=== PATIENT | female | born 1990 | race Two or more races ===

== ENCOUNTER 2020-01-04 18:39 | Inpatient (IN) | payer SELFPAY ==
[2020-01-04] MEDS ORDERED: ONDANSETRON HCL INJ/PF 4 MG/2 ML SDV IV ONE (20:14)
[2020-01-04] MEDS ORDERED: KETOROLAC TROMETHAMINE INJ/PF 30 MG/1 ML SDV IV ONE (20:14)
[2020-01-04] MEDS ORDERED: RINGERS SOLUTION,LACTATED 1,000 ML IV ONE (20:14)
--- NOTE | 2020-01-04 20:27 | ER Document Report ---
ED General - General Chief Complaint: Nausea/Vomiting Stated Complaint: NAUSEA,VOMITING,ABDOMINAL PAIN Time Seen by Provider: 01/04/20 19:40 Notes: 29-year-old female presents emergency department complaining of diffuse but mostly upper abdominal pain that is constant and sharp and stabbing since yesterday afternoon associated with nausea and vomiting but no diarrhea. States earlier today she was seen in urgent care and prescribed Zofran and Bentyl, states that the vomiting has stopped but she still has nausea after taking the Zofran, the pain is unchanged. States that she is able to tolerate water but Aly-Aid makes it worse. Has not tried any solids since the pain and vomiting started. Emesis is nonbloody and nonbilious. Denies any fevers or chills until she showed up here this evening and was told she had a temperature of 100.1. Denies any dysuria. Denies any vaginal bleeding. Last menstrual period was 2 months ago, states with her control she only gets her period every 3 months. Only prior abdominal medical history is a history of "acid buildup in her stomach." This was several years ago. - Related Data Allergies/Adverse Reactions: acetaminophen [From Vicodin] Allergy (Verified 01/04/20 20:57) hydrocodone [From Vicodin] Allergy (Verified 01/04/20 20:57) Past Medical History - General Information source: Patient - Social History Smoking Status: Never Smoker Frequency of alcohol use: None Drug Abuse: None Family History: Reviewed & Not Pertinent Review of Systems - Review of Systems Constitutional: See HPI EENT: No symptoms reported Cardiovascular: No symptoms reported Respiratory: No symptoms reported Gastrointestinal: See HPI, Abdominal pain, Nausea, Vomiting. denies: Diarrhea -: Yes All other systems reviewed and negative Physical Exam - Vital signs Vitals: Temp 100.1 F 01/04/20 18:40 Interpretation: Hypertensive, Tachycardic - Notes Notes: GENERAL: Alert, interacts well. No acute distress. HEAD: Normocephalic, atraumatic EYES: Pupils equal, round and reactive to light, extraocular movements intact. ENT: Oral mucosa moist, tongue midline. NECK: Full range of motion, supple, trachea midline. LUNGS: Clear to auscultation bilaterally, no wheezes, rales or rhonchi, no respiratory distress. HEART: Regular rate and rhythm, no murmurs, gallops, rubs. ABDOMEN: Soft, minimal epigastric tenderness to palpation, no guarding, no rigidity, no rebounding, nondistended, bowel sounds present in all 4 quadrants. EXTREMITIES: Moves all 4 extremities spontaneously, no edema, radial and dorsalis pedis pulses 2/4 bilaterally. No cyanosis. NEUROLOGICAL: Alert and oriented x3, normal speech. PSYCH: Normal mood, normal affect. SKIN: Warm, Dry, normal turgor, no rashes or lesions noted. Course - Re-evaluation Re-evalutation: 01/04/20 22:15 CBC shows leukocytosis of 14.8, no anemia, patient is borderline acidotic with a VBG pH of 7.35, CO2 is low at 27.3 as his bicarb at 14.8, CMP is concerning for DKA, shows pseudohyponatremia with sodium of 127.9, potassium is normal at 4.2 however I will give her normal saline with 20 mEq of potassium in it, CO2 is undetectable therefore anion gap is not reportable, BUN and creatinine are actually normal, glucose elevated at 327, patient also has evidence of pancreatitis with a lipase of 1326.9. She is not . Urinalysis shows greater than 500 of glucose and 80 ketones. Initially for her vomiting patient was hydrated with lactated Ringer's, after seeing her urinalysis I began to suspect DKA, laboratory studies confirm this, patient is started on normal saline with 20 of K, and insulin drip and we will continue to monitor. Attempted to discuss case with the hospitalist, he stated he will have to call me back. 01/04/20 22:[address] Haynes, he states that technically she is not in DKA as her pH is 7.35 however he will admit this patient with an undetectably low serum CO2 for new onset diabetes and pancreatitis. - Vital Signs Vital signs: Temp Pulse Resp BP Pulse Ox 100.1 F 115 H 14 153/95 H 96 01/04/20 19:28 01/04/20 19:28 01/04/20 19:28 01/04/20 19:28 01/04/20 19:28 - Laboratory Result Diagrams: 01/04/20 20:41 01/04/20 20:41 Laboratory results interpreted by me: 01/04/20 01/04/20 01/04/20 20:41 20:41 20:41 WBC 14.8 H RDW 14.2 H Seg Neuts % (Manual) 85 H Lymphocytes % (Manual) 10 L Monocytes % (Manual) 1 L Abs Neuts (Manual) 13.2 H VBG pCO2 VBG HCO3 Sodium 127.9 L Carbon Dioxide < 5 L* BUN 4 L Creatinine 0.49 L Glucose 327 H Alkaline Phosphatase 278 H Total Protein 8.4 H Albumin 2.7 L Lipase 1326.9 H Urine Protein >=500 H Urine Glucose (UA) >=500 H Urine Ketones 80 H Urine Blood MODERATE H 01/04/20 21:47 WBC RDW Seg Neuts % (Manual) Lymphocytes % (Manual) Monocytes % (Manual) Abs Neuts (Manual) VBG pCO2 27.3 L VBG HCO3 14.8 L Sodium Carbon Dioxide BUN Creatinine Glucose Alkaline Phosphatase Total Protein Albumin Lipase Urine Protein Urine Glucose (UA) Urine Ketones Urine Blood Critical Care Note - Critical Care Note Total time excluding time spent on procedures (mins): 47 Discharge - Discharge Clinical Impression: New onset type 1 diabetes mellitus, uncontrolled, hyperglycemia with ketosis Pancreatitis, acute Qualifiers: Pancreatitis type: unspecified pancreatitis type Acute pancreatitis complication: unspecified Qualified Code(s): K85.90 - Acute pancreatitis without necrosis or infection, unspecified Condition: Fair Disposition: ADMITTED INPATIENT Admitting Provider: [place] (Hospitalist) Unit Admitted: Medical Floor
[2020-01-04 21:05] LABS: HEMATOCRIT 42.7 % (36.0-47.0); MEAN CORPUSCULAR VOLUME 89 fl (80-97); PLATELET COUNT 368 10^3/uL (150-450); RED BLOOD COUNT 4.81 10^6/uL (3.72-5.28); RED CELL DISTRIBUTION WIDTH 14.2 % (11.5-14.0); WHITE BLOOD COUNT 14.8 10^3/uL (4.0-10.5)
[2020-01-04 21:11] LABS: APPEARANCE,URINE SLIGHTLY-CLOUDY; BILIRUBIN,URINE NEGATIVE (NEGATIVE); COLOR,URINE YELLOW; GLUCOSE, URINE >=500 mg/dL (NEGATIVE); KETONES,URINE 80 mg/dL (NEGATIVE); LEUKOCYTE ESTERASE,URINE NEGATIVE (NEGATIVE); NITRITE,URINE NEGATIVE (NEGATIVE); PROTEIN,URINE >=500 mg/dL (NEGATIVE); URINE SPECIFIC GRAVITY 1.032; UROBILINOGEN,URINE NEGATIVE mg/dL (<2.0)
[2020-01-04 21:21] LABS: ALBUMIN 2.7 g/dL (3.5-5.0); ALKALINE PHOSPHATASE 278 U/L (38-126); ASPARTATE AMINO TRANSFERASE 21 U/L (14-36); BILIRUBIN,DIRECT 0.4 mg/dL (0.0-0.4); BILIRUBIN,TOTAL 1.1 mg/dL (0.2-1.3); BLOOD UREA NITROGEN 4 mg/dL (7-20); GLUCOSE 327 mg/dL (75-110); POTASSIUM 4.2 mmol/L (3.6-5.0); TOTAL PROTEIN 8.4 g/dL (6.3-8.2)
[2020-01-04 21:31] LABS: CHLORIDE 98 mmol/L (98-107)
[2020-01-04 21:39] LABS: ABSOLUTE LYMPHOCYTES# (MANUAL) 1.5 10^3/uL (0.5-4.7); ABSOLUTE MONOCYTES # (MANUAL) 0.1 10^3/uL (0.1-1.4); BAND NEUTROPHILS % (MANUAL) 4 % (3-5); BASOPHILS % (MANUAL) 0 % (0-2); CARBON DIOXIDE < 5 mmol/L (22-30); EOSINOPHILS % (MANUAL) 0 % (0-6); LYMPHOCYTES % (MANUAL) 10 % (13-45); MONOCYTES % (MANUAL) 1 % (3-13); SEGMENTED NEUTROPHILS % (MAN) 85 % (42-78); TOTAL CELLS COUNTED 100
[2020-01-04 21:40] LABS: ANISOCYTOSIS SLIGHT
[2020-01-04 21:41] LABS: PLATELET COMMENT ADEQUATE; POLYCHROMASIA SLIGHT
[2020-01-04 21:43] LABS: HEMOGLOBIN 14.3 g/dL (12.0-15.5)
[2020-01-04 21:44] LABS: MEAN CORPUSCULAR HEMOGLOBIN 29.7 pg (27.0-33.4); MEAN CORPUSCULAR HGB CONC 33.5 g/dL (32.0-36.0)
[2020-01-04] MEDS ORDERED: INSULIN REG, HUMAN 100 UNIT/ML 3 ML VIAL (PYX) IV ONE (21:47)
[2020-01-04 21:58] LABS: VENOUS BLOOD BASE EXCESS -9.1 mmol/L; VENOUS BLOOD HCO3 14.8 mmol/L (20-32); VENOUS BLOOD PCO2 27.3 mmHg (35-63); VENOUS BLOOD PH 7.35 (7.30-7.42)
[2020-01-04] MEDS ORDERED: POTASSI CL 20 MEQ/NS 1L 1,000 ML IV ONE (22:01)
[2020-01-04] MEDS ORDERED: RINGERS SOLUTION,LACTATED 1,000 ML IV PRN (22:55)
[2020-01-04] MEDS ORDERED: PROMETHAZINE HCL INJ 25 MG/1 ML VIAL IV PRN (22:55)
[2020-01-04] MEDS ORDERED: MAG HYDROX/AL HYDROX/SIMETH SUSP 30 ML UDCUP PO PRN (22:55)
[2020-01-04] MEDS ORDERED: MAGNESIUM HYDROXIDE SUSP 30 ML UDCUP PO PRN (22:55)
[2020-01-04] MEDS ORDERED: DEXTROSE 5%-WATER 1000 ML 1,000 ML with SODIUM BICARBONATE 150 MEQ IV PRN ×2 (23:00)
[2020-01-04] MEDS ORDERED: HYDRALAZINE HCL INJ/PF 20 MG/1 ML SDV IV PRN (23:00)
[2020-01-04] MEDS ORDERED: GUAIFENESIN SYRP 200 MG/10 ML UDC PO PRN (23:00)
[2020-01-04] MEDS ORDERED: GLUCAGON,HUMAN RECOMB 1 MG INJ IM PRN (23:03)
[2020-01-04] MEDS ORDERED: DEXTROSE 40% GEL 15 GM TUBE PO PRN ×2 (23:03)
[2020-01-04] MEDS ORDERED: DEXTROSE 50%-WATER 25 GM/50 ML DISP.SYRIN IV PRN (23:03)
[2020-01-05] MEDS: PANTOPRAZOLE SODIUM 40 MG VIAL IV SCH ×3 (00:07→21:05)
[2020-01-05] MEDS: INSULIN REG, HUMAN 100 UNIT/ML 3 ML VIAL (PYX) SUBCUT SCH ×4 (00:20→09:27)
--- NOTE | 2020-01-05 00:24 | RADIOLOGY REPORT (SQ) ---
EXAM DESCRIPTION: US ABDOMEN COMPLETED DATE/TME: 01/04/2020 00:00 CLINICAL HISTORY: 29 years Female, Abdominal pain, elevated lipase Comparison: CT, no contrast, January 05, 2020. LIMITATIONS: Bowel gas and body habitus artifact. FINDINGS: 5.1 cm hypoechoic mass of the right hepatic lobe. There is minimal vascularity at its periphery. Differential diagnosis includes neoplasm. Recommend contrast CT or MRI of the abdomen, liver protocol. Severe hepatic steatosis. Gallbladder sludge, negative sonographic Peralta's test, obscured common bile duct, no intrahepatic ductal dilation, hepatopetal patent flow of the portal vein, spleen, 11-cm left kidney, 10-cm right kidney, partially obscured pancreas, visualized vasculature/abdominal aorta, and no significant ascites appear otherwise unremarkable. IMPRESSION: 1. 5.1 cm hypoechoic mass of the right hepatic lobe. There is minimal vascularity at its periphery. Differential diagnosis includes neoplasm. Recommend contrast CT or MRI of the abdomen, liver protocol. 2. Severe hepatic steatosis. 3. Gallbladder sludge.
--- NOTE | 2020-01-05 00:32 | RADIOLOGY REPORT (SQ) ---
CT ABDOMEN PELVIS WITHOUT IV CONTRAST HISTORY: Abdominal pain with elevated lipase. COMPARISON: Ultrasound from 01/03/2020. TECHNIQUE: CT scan of the abdomen and pelvis was performed without IV contrast. This exam was performed according to our departmental dose-optimization program, which includes automated exposure control, adjustment of the mA and/or kV according to patient size and/or use of iterative reconstruction technique. FINDINGS: The lung bases are clear. No pleural or pericardial effusions. There is no hiatal hernia. There is diffuse hepatic steatosis with a focal area of fatty sparing the right hepatic lobe. There is diffuse inflammatory stranding surrounding the pancreas. No fluid collection is seen. The gallbladder, spleen, adrenal glands, kidneys, and pelvic organs are normal. No obstructing urinary stones. The stomach and duodenum are unremarkable. No small bowel obstruction. The appendix is normal. No evidence of acute diverticulitis. No adenopathy, free fluid, or free air is identified. The aorta is normal in caliber. No acute bony findings are seen. No abnormal body wall hernia. IMPRESSION: Acute pancreatitis without evidence of pseudocyst.
[2020-01-05] MEDS ORDERED: SODIUM BICARBONATE 8.4% INJ 50 MEQ/50 ML DISP.SYRIN ONE (00:57)
--- NOTE | 2020-01-05 01:11 | PDOC H&P ---
History of Present Illness Admission Date/PCP: 01/04/2020 22:34 No local PCP Patient complains of: Abdominal pain History of Present Illness: PAVITHRA GRULLON is a 29 year old female who presents the emergency room with a one-day history of abdominal pain. She admits to the abrupt onset of a moderate to severely intense constant sharp and stabbing generalized abdominal pain worse in the upper abdomen beginning 01/03/2020. Her abdominal pain has been accompanied by nausea and vomiting and associated with anorexia. Her pain is exacerbated by attempts at oral intake of food or fluids other than water. She denies other associated or accompanying signs and symptoms. She denies prior similar episodes. She has not identified any additional aggravating or ameliorating factors for her abdominal pain. In the emergency room she was found to have an elevated serum lipase and was also noted to have a fully compensated metabolic acidosis with ketosis and elevated blood sugar. She was subsequently admitted to the hospital for further evaluation treatment. Past Medical History Cardiac Medical History: Denies: Coronary Artery Disease, DVT, Hyperlipidema, Hypertension Pulmonary Medical History: Denies: Asthma, Chronic Obstructive Pulmonary Disease (COPD) EENT Medical History: Denies: Cataracts, Ears - Hearing aids Neurological Medical History: Denies: Multiple Sclerosis, Seizures Endocrine Medical History: Denies: Diabetes Mellitus Type 1, Diabetes Mellitus Type 2, Hyperthyroidism, Hypothyroidism Renal/ Medical History: Denies: Chronic Kidney Disease, Nephrolithiasis Malignancy Medical History: Reports: None GI Medical History: Reports: Peptic Ulcer Disease Denies: Cirrhosis, Crohn's Disease, Gastroesophageal Reflux Disease, Hepatitis, Ulcerative Colitis Musculoskeltal Medical History: Denies: Arthritis, Gout Skin Medical History: Denies: Eczema, Psoriasis Psychiatric Medical History: Denies: Alcohol Dependency, Substance Abuse, Tobacco Dependency Traumatic Medical History: Reports: None Hematology: Denies: Anemia, Bleeding Tendencies Infectious Medical History: Reports: None Past Surgical History Past Surgical History: Reports: Other - Jaw surgery for overbite Social History Information Source: Patient Lives with: Spouse/Significant other Smoking Status: Never Smoker Electronic Cigarette use?: No Frequency of Alcohol Use: Occasional Hx Recreational Drug Use: No Drugs: None Hx Prescription Drug Abuse: No - Advance Directive Resuscitation Status: Full Code Surrogate healthcare decision maker:: Davi Grullon Family History Family History: Patient is adopted and family history is unknown. Parental Family History Reviewed: No Children Family History Reviewed: Unknown Sibling(s) Family History Reviewed.: Unknown Medication/Allergy Allergies/Adverse Reactions: acetaminophen [From Vicodin] Allergy (Verified 01/04/20 20:57) hydrocodone [From Vicodin] Allergy (Verified 01/04/20 20:57) Review of Systems Constitutional: ABSENT: chills, fever(s) Eyes: ABSENT: visual disturbances, other - Eye pain Ears: ABSENT: hearing changes, other - Ear pain Nose, Mouth, and Throat: ABSENT: headache(s), sore throat Cardiovascular: ABSENT: chest pain, palpitations Respiratory: ABSENT: cough, dyspnea Gastrointestinal: PRESENT: abdominal pain, nausea, vomiting. ABSENT: constipation, diarrhea Genitourinary: ABSENT: dysuria, hematuria Musculoskeletal: ABSENT: back pain, joint swelling Integumentary: ABSENT: pruritus, rash Neurological: ABSENT: confusion, convulsions, focal weakness, memory loss, syncope Psychiatric: ABSENT: anxiety, depression Endocrine: PRESENT: polydipsia, polyuria. ABSENT: cold intolerance, heat intolerance Hematologic/Lymphatic: ABSENT: easy bleeding, easy bruising Allergic/Immunologic: ABSENT: seasonal rhinorrhea Physical Exam Vital Signs: Temp Pulse Resp BP Pulse Ox 100.1 F 115 H 14 153/95 H 96 01/04/20 19:28 01/04/20 19:28 01/04/20 19:28 01/04/20 19:28 01/04/20 19:28 Intake & Output 01/02/20 01/03/20 01/04/20 23:59 23:59 23:59 Intake Total 949 Balance 949 Weight 77.111 kg General appearance: PRESENT: no acute distress, cooperative, obese Head exam: PRESENT: atraumatic, normocephalic Eye exam: PRESENT: conjunctiva pink. ABSENT: conjunctival injection, scleral icterus Ear exam: PRESENT: normal external ear exam. ABSENT: bleeding, drainage Mouth exam: PRESENT: dry mucosa, neck supple Neck exam: ABSENT: thyromegaly, tracheal deviation Respiratory exam: PRESENT: clear to auscultation emil, symmetrical, unlabored Cardiovascular exam: PRESENT: RRR. ABSENT: clicks, gallop, rubs Pulses: PRESENT: normal radial pulses, normal dorsalis pedis pul Vascular exam: PRESENT: normal capillary refill. ABSENT: pallor GI/Abdominal exam: PRESENT: hypoactive bowel sounds, soft, tenderness - Mild to moderate generalized tenderness to palpation without localization Rectal exam: PRESENT: deferred Extremities exam: ABSENT: joint swelling, pedal edema Musculoskeletal exam: ABSENT: deformity, dislocation Neurological exam: PRESENT: alert, oriented to person, oriented to place, oriented to time, oriented to situation, CN II-XII grossly intact. ABSENT: motor sensory deficit Psychiatric exam: PRESENT: appropriate affect, normal mood Skin exam: PRESENT: dry, intact, warm. ABSENT: jaundice, rash, urticaria Results Laboratory Results: 01/04/20 20:41 01/04/20 20:41 01/04/20 01/04/20 01/04/20 20:41 20:41 20:41 WBC 14.8 H RBC 4.81 Hgb 14.3 Hct 42.7 MCV 89 MCH 29.7 MCHC 33.5 RDW 14.2 H Plt Count 368 Seg Neutrophils % Not Reportable VBG pH VBG pCO2 VBG HCO3 VBG Base Excess Sodium 127.9 L Potassium 4.2 Chloride 98 Carbon Dioxide < 5 L* Anion Gap Not Reportable BUN 4 L Creatinine 0.49 L Est GFR ( Amer) > 60 Glucose 327 H Calcium 9.0 Total Bilirubin 1.1 AST 21 Alkaline Phosphatase 278 H Total Protein 8.4 H Albumin 2.7 L Lipase 1326.9 H Serum HCG, Qual Urine Color YELLOW Urine Appearance SLIGHTLY-CLOUDY Urine pH 5.0 Ur Specific [place] 1.032 Urine Protein >=500 H Urine Glucose (UA) >=500 H Urine Ketones 80 H Urine Blood MODERATE H Urine Nitrite NEGATIVE Ur Leukocyte Esterase NEGATIVE Urine WBC (Auto) 5 Urine RBC (Auto) 2 01/04/20 01/04/20 20:41 21:47 WBC RBC Hgb Hct MCV MCH MCHC RDW Plt Count Seg Neutrophils % VBG pH 7.35 VBG pCO2 27.3 L VBG HCO3 14.8 L VBG Base Excess -9.1 Sodium Potassium Chloride Carbon Dioxide Anion Gap BUN Creatinine Est GFR ( Amer) Glucose Calcium Total Bilirubin AST Alkaline Phosphatase Total Protein Albumin Lipase Serum HCG, Qual NEGATIVE Urine Color Urine Appearance Urine pH Ur Specific [place] Urine Protein Urine Glucose (UA) Urine Ketones Urine Blood Urine Nitrite Ur Leukocyte Esterase Urine WBC (Auto) Urine RBC (Auto) Assessment and Plan - Diagnosis (1) Acute pancreatitis Qualifiers: Pancreatitis type: unspecified pancreatitis type Acute pancreatitis complication: unspecified Qualified Code(s): K85.90 - Acute pancreatitis without necrosis or infection, unspecified Is this a current diagnosis for this admission?: Yes (2) Metabolic acidosis Is this a current diagnosis for this admission?: Yes (3) Ketosis Is this a current diagnosis for this admission?: Yes (4) Hyperglycemia Is this a current diagnosis for this admission?: Yes (5) Abdominal pain Qualifiers: Abdominal location: generalized Qualified Code(s): R10.84 - Generalized abdominal pain Is this a current diagnosis for this admission?: Yes (6) Nausea and vomiting Qualifiers: Vomiting type: unspecified Vomiting Intractability: non-intractable Qualified Code(s): R11.2 - Nausea with vomiting, unspecified Is this a current diagnosis for this admission?: Yes - Plan Summary Summary: Patient is admitted to the medical floor where she will receive routine supportive and symptomatic cares. She will be treated with IV fluid as well as a bicarbonate intravenous infusion and her blood sugars were monitored closely. Sliding scale insulin will be used to control her hyperglycemia. She will receive morphine sulfate 2 to 4 mg IV every 2 hours as needed for pain. She will receive Ativan 1 mg IV every 4 hours as needed for anxiety or restlessness. A noncontrast CT scan of the abdomen and pelvis will be obtained as soon as possible. Serial lipase and amylase determinations will be obtained. CBCs, metabolic profiles, magnesium levels and additional laboratory and/or radiographic studies will be obtained as appropriate. Patient will be on a clear liquid diet initially, which can be advanced as tolerated. Hemoglobin A1c will be obtained. An ultrasound of the gallbladder will also be obtained. - Time Time Spent with patient: 25-34 minutes Medications reviewed and adjusted accordingly: Yes Anticipated discharge: Home - Inpatient Certification Based on my medical assessment, after consideration of the patient's comorbidities, presenting symptoms, or acuity I expect that the services needed warrant INPATIENT care.: Yes I certify that my determination is in accordance with my understanding of Medicare's requirements for reasonable and necessary INPATIENT services [42 CFR 412.3e].: Yes Medical Necessity: Need Close Monitoring Due to Risk of Patient Decompensation, Need For IV Fluids, Need for Pain Control, Risk of Complication if Not Cared For in Hospital
[2020-01-05] MEDS: DEXTROSE 5%-WATER 1000 ML 1,000 ML with SODIUM BICARBONATE 150 MEQ IV PRN ×4 (01:31→08:48)
[2020-01-05] MEDS: MORPHINE SULFATE 10 MG/ML INJ IV PRN ×7 (01:32→14:49)
[2020-01-05] MEDS: HEPARIN SOD (PORCINE) 5,000 UNIT/ML 1 ML VIAL SUBCUT SCH ×3 (06:10→21:05)
[2020-01-05 06:36] LABS: HEMATOCRIT 39.6 % (36.0-47.0); MEAN CORPUSCULAR VOLUME 89 fl (80-97); PLATELET COUNT 308 10^3/uL (150-450); RED BLOOD COUNT 4.47 10^6/uL (3.72-5.28); WHITE BLOOD COUNT 10.3 10^3/uL (4.0-10.5)
[2020-01-05 06:50] LABS: AMYLASE 259 U/L (30-110); ANION GAP 18 (5-19); BLOOD UREA NITROGEN 3 mg/dL (7-20); CALCIUM 7.4 mg/dL (8.4-10.2); CHLORIDE 100 mmol/L (98-107); GLUCOSE 286 mg/dL (75-110); POTASSIUM 3.6 mmol/L (3.6-5.0)
[2020-01-05 07:07] LABS: HEMOGLOBIN 13.3 g/dL (12.0-15.5); MEAN CORPUSCULAR HEMOGLOBIN 29.8 pg (27.0-33.4); MEAN CORPUSCULAR HGB CONC 33.6 g/dL (32.0-36.0)
[2020-01-05 07:08] LABS: FREE T3 2.51 pg/mL (2.77-5.27)
[2020-01-05 07:23] LABS: THYROID STIMULATING HORMONE 1.6 uIU/mL (0.47-4.68)
[2020-01-05 09:25] LABS: DIRECT LDL 190 mg/dL (<100)
[2020-01-05] MEDS: DOCUSATE SODIUM 100 MG CAPSULE PO SCH ×2 (09:27→17:00)
[2020-01-05 09:48] LABS: CARBON DIOXIDE 9 mmol/L (22-30); TRIGLYCERIDES 9861 mg/dL (<150)
[2020-01-05] MEDS ORDERED: NORMAL SALINE 1000 ML 1,000 ML with POTASSIUM CHLORIDE 20 MEQ IV PRN ×2 (10:01)
[2020-01-05] MEDS ORDERED: INSULIN REG, HUMAN 100 UNIT/ML 3 ML VIAL (PYX) IV ONE (10:30)
[2020-01-05] MEDS: POTASSI CL 20 MEQ/NS 1L 1000 ML IV PRN ×2 (10:38→14:53)
[2020-01-05] MEDS ORDERED: INSULIN REG, HUMAN 100 UNIT/ML 3 ML VIAL (PYX) ONE (13:01)
[2020-01-05] MEDS: NORMAL SALINE 100 ML with INSULIN REGULAR, HUMAN 100 UNIT IV PRN ×2 (13:15)
[2020-01-05] MEDS ORDERED: DICYCLOMINE HCL 20 MG TABLET PO PRN (14:44)
[2020-01-05] MEDS ORDERED: QUETIAPINE FUMARATE 25 MG TABLET PO PRN (14:44)
[2020-01-05] MEDS ORDERED: ONDANSETRON HCL INJ/PF 4 MG/2 ML SDV IV PRN (15:21)
--- NOTE | 2020-01-05 15:28 | PDOC PROGRESS REPORT ---
Subjective Progress Note for:: 01/05/20 Subjective:: Patient c/o some nausea and still having significant abdominal pain. Reason For Visit: ACUTE PANCREATITIS,ABDOMINAL PAIN,HYPERGLYCEMIA Physical Exam Vital Signs: Temp Pulse Resp BP Pulse Ox 99.9 F 135 H 18 130/98 H 97 01/05/20 11:36 01/05/20 11:36 01/05/20 11:36 01/05/20 11:36 01/05/20 11:36 Intake & Output 01/04/20 01/05/20 01/06/20 06:59 06:59 06:59 Intake Total 1780 1004 Balance 1780 1004 Weight 77.5 kg General appearance: PRESENT: no acute distress, cooperative, obese Neck exam: ABSENT: JVD Respiratory exam: PRESENT: clear to auscultation emil, symmetrical, unlabored. ABSENT: tachypnea Cardiovascular exam: ABSENT: bradycardia, tachycardia GI/Abdominal exam: PRESENT: guarding - Mild voluntary guarding, soft, tenderness. ABSENT: distended, firm, rebound, rigid Neurological exam: PRESENT: alert, awake, oriented to person, oriented to place, oriented to time Results Laboratory Results: 01/05/20 05:45 01/05/20 05:46 01/04/20 01/04/20 01/04/20 20:41 20:41 20:41 WBC 14.8 H RBC 4.81 Hgb 14.3 Hct 42.7 MCV 89 MCH 29.7 MCHC 33.5 RDW 14.2 H Plt Count 368 Seg Neutrophils % Not Reportable VBG pH VBG pCO2 VBG HCO3 VBG Base Excess Sodium 127.9 L Potassium 4.2 Chloride 98 Carbon Dioxide < 5 L* Anion Gap Not Reportable BUN 4 L Creatinine 0.49 L Est GFR ( Amer) > 60 Glucose 327 H Calcium 9.0 Magnesium Total Bilirubin 1.1 AST 21 Alkaline Phosphatase 278 H Total Protein 8.4 H Albumin 2.7 L Triglycerides Cholesterol LDL Cholesterol Direct HDL Cholesterol Amylase Lipase 1326.9 H TSH Free T3 pg/mL Serum HCG, Qual Urine Color YELLOW Urine Appearance SLIGHTLY-CLOUDY Urine pH 5.0 Ur Specific [place] 1.032 Urine Protein >=500 H Urine Glucose (UA) >=500 H Urine Ketones 80 H Urine Blood MODERATE H Urine Nitrite NEGATIVE Ur Leukocyte Esterase NEGATIVE Urine WBC (Auto) 5 Urine RBC (Auto) 2 01/04/20 01/04/20 01/04/20 20:41 20:41 21:47 WBC RBC Hgb Hct MCV MCH MCHC RDW Plt Count Seg Neutrophils % VBG pH 7.35 VBG pCO2 27.3 L VBG HCO3 14.8 L VBG Base Excess -9.1 Sodium Potassium Chloride Carbon Dioxide Anion Gap BUN Creatinine Est GFR ( Amer) Glucose Calcium Magnesium Total Bilirubin AST Alkaline Phosphatase Total Protein Albumin Triglycerides Cholesterol LDL Cholesterol Direct HDL Cholesterol Amylase 160 H Lipase TSH Free T3 pg/mL Serum HCG, Qual NEGATIVE Urine Color Urine Appearance Urine pH Ur Specific [place] Urine Protein Urine Glucose (UA) Urine Ketones Urine Blood Urine Nitrite Ur Leukocyte Esterase Urine WBC (Auto) Urine RBC (Auto) 01/05/20 01/05/20 01/05/20 05:45 05:46 05:46 WBC 10.3 RBC 4.47 Hgb 13.3 Hct 39.6 MCV 89 MCH 29.8 MCHC 33.6 RDW 14.0 Plt Count 308 Seg Neutrophils % VBG pH VBG pCO2 VBG HCO3 VBG Base Excess Sodium 127.4 L Potassium 3.6 Chloride 100 Carbon Dioxide 9 L* Anion Gap 18 BUN 3 L Creatinine 0.40 L Est GFR ( Amer) > 60 Glucose 286 H Calcium 7.4 L Magnesium 1.6 Total Bilirubin AST Alkaline Phosphatase Total Protein Albumin Triglycerides 9861 H Cholesterol > 650.00 H LDL Cholesterol Direct 190 H HDL Cholesterol 23 L Amylase 259 H Lipase 3015.9 H TSH 1.60 Free T3 pg/mL 2.51 L Serum HCG, Qual Urine Color Urine Appearance Urine pH Ur Specific [place] Urine Protein Urine Glucose (UA) Urine Ketones Urine Blood Urine Nitrite Ur Leukocyte Esterase Urine WBC (Auto) Urine RBC (Auto) Impressions: Abdomen Ultrasound 01/04/20 00:00 IMPRESSION: 1. 5.1 cm hypoechoic mass of the right hepatic lobe. There is minimal vascularity at its periphery. Differential diagnosis includes neoplasm. Recommend contrast CT or MRI of the abdomen, liver protocol. 2. Severe hepatic steatosis. 3. Gallbladder sludge. Abdomen/Pelvis CT 01/04/20 00:00 IMPRESSION: Acute pancreatitis without evidence of pseudocyst. Assessment and Plan - Diagnosis (1) Acute pancreatitis Qualifiers: Pancreatitis type: other Acute pancreatitis complication: no infection or necrosis Qualified Code(s): K85.80 - Other acute pancreatitis without necrosis or infection Is this a current diagnosis for this admission?: Yes Plan: Hypertriglyceridemia-induced acute pancreatitis. Will give continuous IV fluid hydration with normal saline at 250 cc/h with KCl supplement. Pain control as needed. Antiemetics. CT abdomen reviewed showing findings consistent with acute pancreatitis. Lipase over 3000. (2) Hypertriglyceridemia Is this a current diagnosis for this admission?: Yes Plan: This triglyceride is over 9000. She has no idea of her family history because she is adopted. 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 Presence of acute pancreatitis, will treat with insulin drip with triglyceride levels every 12 hours and BMP. Will maintain insulin drip until triglycerides drops below 500. Start on fenofibrate tomorrow Pseudohyponatremia secondary to hypertriglyceridemia. (3) High anion gap metabolic acidosis Is this a current diagnosis for this admission?: Yes Plan: Metabolic acidosis and ketoacidosis are more so secondary to hypertriglyceridemia rather than DKA. On IV insulin. Will administer normal saline with KCl supplementation and monitor BMP. Switch to D5 NS was blood glucose drops below 250. (4) Lesion of liver greater than 1 cm in diameter Is this a current diagnosis for this admission?: Yes Plan: Ultrasound found incidental hypoechoic 5.1 cm lesion in the liver right lobe. Will check liver protocol MRI with gadolinium to further evaluate this given size of lesion. (5) Metabolic syndrome Is this a current diagnosis for this admission?: Yes (6) Hypercholesterolemia Is this a current diagnosis for this admission?: Yes Plan: Start on atorvastatin. LDL significantly elevated. - Time Time Spent with patient: Less than 15 minutes
[2020-01-05] MEDS ORDERED: HYDROMORPHONE HCL INJ/PF 2 MG/ML AMPULE IV PRN (16:01)
[2020-01-05] MEDS ORDERED: NORMAL SALINE 1000 ML 500 ML IV ONE (16:41)
[2020-01-05] MEDS ORDERED: DEXTROSE 5%-NORMAL SALINE 1,000 ML with POTASSIUM CHLORIDE 20 MEQ IV PRN ×2 (16:46)
[2020-01-05] MEDS ORDERED: NORMAL SALINE 500 ML IV ONE (17:00)
[2020-01-05 18:20] LABS: ANION GAP 13 (5-19); BLOOD UREA NITROGEN 3 mg/dL (7-20); CARBON DIOXIDE 12 mmol/L (22-30); CHLORIDE 104 mmol/L (98-107); GLUCOSE 218 mg/dL (75-110)
[2020-01-05 18:34] LABS: CALCIUM 5.9 mg/dL (8.4-10.2)
--- NOTE | 2020-01-05 18:35 | EKG REPORT ---
SEVERITY:- BORDERLINE ECG - SINUS TACHYCARDIA BORDERLINE T ABNORMALITIES, DIFFUSE LEADS : Confirmed by: Joel Roach MD 05-Jan-2020 18:34:04
[2020-01-05] MEDS: POTASSI CL 20 MEQ/D5NS 1L 1000 ML IV PRN (18:37)
[2020-01-05] MEDS ORDERED: CALCIUM GLUCONATE 1000 MG/10 ML INJ IV ONE (18:40)
[2020-01-05] MEDS ORDERED: CALCIUM CARBONATE 600 MG TABLET PO ONE (19:15)
[2020-01-05 20:16] LABS: ALBUMIN 2.5 g/dL (3.5-5.0)
[2020-01-05] MEDS: KETOROLAC TROMETHAMINE INJ/PF 30 MG/1 ML SDV IV PRN (20:57)
[2020-01-05] MEDS: CALCIUM GLUCONATE 1 GM/NS 50 ML RTU IV SCH ×2 (20:57→22:43)
[2020-01-05] MEDS: METOPROLOL TARTRATE 25 MG TABLET PO SCH (20:58)
[2020-01-05] MEDS: ATORVASTATIN CALCIUM 80 MG TABLET PO SCH (21:05)
[2020-01-05] MEDS: LORAZEPAM INJ 2 MG/1 ML VIAL IV PRN (22:49)
[2020-01-06] MEDS: MAGNESIUM SULFATE/D5W 1 GM/100 ML RTUPB IV SCH ×2 (00:50→02:59)
[2020-01-06] MEDS: METOPROLOL TARTRATE 25 MG TABLET PO SCH ×4 (00:50→17:17)
[2020-01-06] MEDS ORDERED: MAGNESIUM SULFATE/D5W 1 GM/100 ML RTUPB IV ONE (02:54)
[2020-01-06] MEDS: NORMAL SALINE 100 ML with INSULIN REGULAR, HUMAN 100 UNIT IV PRN ×6 (04:10→18:30)
[2020-01-06] MEDS: POTASSI CL 20 MEQ/D5NS 1L 1000 ML IV PRN ×4 (04:10→21:03)
[2020-01-06] MEDS: HEPARIN SOD (PORCINE) 5,000 UNIT/ML 1 ML VIAL SUBCUT SCH ×3 (05:27→22:29)
[2020-01-06 05:46] LABS: HEMATOCRIT 44.4 % (36.0-47.0); MEAN CORPUSCULAR VOLUME 89 fl (80-97); PLATELET COUNT 330 10^3/uL (150-450); RED BLOOD COUNT 4.97 10^6/uL (3.72-5.28); RED CELL DISTRIBUTION WIDTH 14.9 % (11.5-14.0); WHITE BLOOD COUNT 6.1 10^3/uL (4.0-10.5)
[2020-01-06 06:01] LABS: ALBUMIN 2.3 g/dL (3.5-5.0); ALKALINE PHOSPHATASE 100 U/L (38-126); ANION GAP 9 (5-19); ASPARTATE AMINO TRANSFERASE 27 U/L (14-36); BILIRUBIN,DIRECT 0.3 mg/dL (0.0-0.4); BILIRUBIN,TOTAL 0.7 mg/dL (0.2-1.3); BLOOD UREA NITROGEN 9 mg/dL (7-20); CARBON DIOXIDE 13 mmol/L (22-30); CHLORIDE 106 mmol/L (98-107); CREATINE KINASE 300 U/L (30-135); GLUCOSE 310 mg/dL (75-110); POTASSIUM 4.8 mmol/L (3.6-5.0)
[2020-01-06 06:09] LABS: HEMOGLOBIN 14.9 g/dL (12.0-15.5)
[2020-01-06 06:10] LABS: MEAN CORPUSCULAR HGB CONC 33.6 g/dL (32.0-36.0)
[2020-01-06 06:41] LABS: TRIGLYCERIDES 4030 mg/dL (<150)
[2020-01-06 06:42] LABS: CALCIUM 5.6 mg/dL (8.4-10.2)
[2020-01-06] MEDS: KETOROLAC TROMETHAMINE INJ/PF 30 MG/1 ML SDV IV PRN (06:52)
[2020-01-06] MEDS: LORAZEPAM INJ 2 MG/1 ML VIAL IV PRN (06:52)
[2020-01-06] MEDS ORDERED: CALCIUM GLUCONATE 1000 MG/10 ML INJ IV ONE (07:56)
[2020-01-06] MEDS ORDERED: PROMETHAZINE HCL INJ 25 MG/1 ML VIAL IV PRN (08:30)
[2020-01-06 08:48] LABS: CHOLESTEROL 834.75 mg/dL (0-200)
[2020-01-06] MEDS ORDERED: OXYCODONE-ACETAMINOPHEN 5-325 MG TABLET PO PRN (09:08)
[2020-01-06] MEDS: CALCIUM GLUCONATE 1 GM/NS 50 ML RTU IV SCH ×2 (09:30→10:57)
[2020-01-06] MEDS ORDERED: NORGEST PO SCH (10:00)
[2020-01-06] MEDS ORDERED: [UNRECOGNIZED DRUG - OTHER] PO SCH (10:00)
[2020-01-06] MEDS ORDERED: FENOFIBRATE NANOCRYSTALLIZED 145 MG TABLET PO SCH (10:00)
[2020-01-06 10:45] LABS: ARTERIAL BLOOD BASE EXCESS -9.8 mmol/L; ARTERIAL BLOOD HCO3 13.1 mmol/L (20-24); ARTERIAL BLOOD O2 SATURATION 94.9 % (94-98); ARTERIAL BLOOD PCO2 23.4 mmHg (35-45); ARTERIAL BLOOD PH 7.37 (7.35-7.45); ARTERIAL BLOOD PO2 74.8 mmHg (80-100); ARTERIAL BLOOD TOTAL CO2 13.8 mmol/L (21-25)
[2020-01-06 10:51] LABS: ARTERIAL BLOOD FIO2 21%
[2020-01-06] MEDS: DOCUSATE SODIUM 100 MG CAPSULE PO SCH ×2 (10:54→17:17)
[2020-01-06] MEDS: PANTOPRAZOLE SODIUM 40 MG VIAL IV SCH ×2 (10:57→22:28)
[2020-01-06] MEDS: DULOXETINE HCL 30 MG CAPSULE.DR PO SCH (10:57)
[2020-01-06] MEDS: MORPHINE SULFATE 10 MG/ML INJ IV PRN ×3 (11:09→18:42)
[2020-01-06] MEDS: ALBUMIN HUMAN 12.5 GM/50 ML RTUINJ IV SCH ×3 (11:51→13:52)
[2020-01-06 15:34] LABS: ALBUMIN 2.5 g/dL (3.5-5.0); ALKALINE PHOSPHATASE 73 U/L (38-126); ANION GAP 8 (5-19); ASPARTATE AMINO TRANSFERASE 23 U/L (14-36); BILIRUBIN,DIRECT 0.2 mg/dL (0.0-0.4); BILIRUBIN,TOTAL 0.7 mg/dL (0.2-1.3); BLOOD UREA NITROGEN 10 mg/dL (7-20); CARBON DIOXIDE 12 mmol/L (22-30); CHLORIDE 112 mmol/L (98-107); GLUCOSE 144 mg/dL (75-110); TOTAL PROTEIN 4.8 g/dL (6.3-8.2)
[2020-01-06 15:47] LABS: POTASSIUM 3.7 mmol/L (3.6-5.0)
--- NOTE | 2020-01-06 17:14 | PDOC PROGRESS REPORT ---
Subjective Progress Note for:: 01/06/20 Subjective:: Patient still having pain in her abdomen. Seemed a little drowsy this morning but had just received Seroquel last night which seemed to have knocked her out. However she easily wakes up with verbal. Reason For Visit: ACUTE PANCREATITIS,ABDOMINAL PAIN,HYPERGLYCEMIA Physical Exam Vital Signs: Temp Pulse Resp BP Pulse Ox 99.9 F 139 H 20 144/89 H 96 01/06/20 08:54 01/06/20 08:54 01/06/20 08:54 01/06/20 08:54 01/06/20 08:54 Intake & Output 01/05/20 01/06/20 01/07/20 06:59 06:59 06:59 Intake Total 1780 6922 2245 Output Total 75 Balance 1780 6887 2245 Weight 77.5 kg General appearance: PRESENT: no acute distress, cooperative Neck exam: ABSENT: JVD Respiratory exam: PRESENT: clear to auscultation emil, unlabored. ABSENT: tachypnea, wheezes Cardiovascular exam: PRESENT: +S1, +S2, tachycardia. ABSENT: irregular rhythm GI/Abdominal exam: PRESENT: distended, guarding - voluntary guarding, soft, tend erness. ABSENT: firm, rebound, rigid Neurological exam: PRESENT: alert, awake, oriented to person, oriented to place, oriented to time, oriented to situation Results Laboratory Results: 01/06/20 05:27 01/06/20 15:04 01/05/20 01/05/20 01/05/20 05:46 17:39 17:39 WBC RBC Hgb Hct MCV MCH MCHC RDW Plt Count Carbonic Acid HCO3/H2CO3 Ratio ABG pH ABG pCO2 ABG pO2 ABG HCO3 ABG O2 Saturation ABG Base Excess FiO2 Sodium 128.8 L Potassium 4.0 Chloride 104 Carbon Dioxide 12 L Anion Gap 13 BUN 3 L Creatinine 0.67 Est GFR ( Amer) > 60 Glucose 218 H Calcium 5.9 L* Magnesium Total Bilirubin AST Alkaline Phosphatase Total Protein Albumin Triglycerides 7890 H Cholesterol 834.75 H Lipase 01/05/20 01/06/20 01/06/20 17:39 05:27 05:27 WBC 6.1 RBC 4.97 Hgb 14.9 Hct 44.4 MCV 89 MCH 30.0 MCHC 33.6 RDW 14.9 H Plt Count 330 Carbonic Acid HCO3/H2CO3 Ratio ABG pH ABG pCO2 ABG pO2 ABG HCO3 ABG O2 Saturation ABG Base Excess FiO2 Sodium 127.5 L Potassium 4.8 Chloride 106 Carbon Dioxide 13 L Anion Gap 9 BUN 9 Creatinine 1.30 H Est GFR ( Amer) 59 L Glucose 310 H Calcium 5.6 L* Magnesium 1.4 L 2.2 Total Bilirubin 0.7 AST 27 Alkaline Phosphatase 100 Total Protein 5.0 L Albumin 2.5 L 2.3 L Triglycerides 4030 H Cholesterol Lipase 1283.5 H 01/06/20 01/06/20 10:30 15:04 WBC RBC Hgb Hct MCV MCH MCHC RDW Plt Count Carbonic Acid 0.70 L HCO3/H2CO3 Ratio 18:1 ABG pH 7.37 ABG pCO2 23.4 L ABG pO2 74.8 L ABG HCO3 13.1 L ABG O2 Saturation 94.9 ABG Base Excess -9.8 FiO2 21% Sodium 132.4 L Potassium 3.7 D Chloride 112 H Carbon Dioxide 12 L Anion Gap 8 BUN 10 Creatinine 0.92 Est GFR ( Amer) > 60 Glucose 144 H Calcium 6.0 L* Magnesium 2.2 Total Bilirubin 0.7 AST 23 Alkaline Phosphatase 73 Total Protein 4.8 L Albumin 2.5 L Triglycerides Cholesterol Lipase 01/06/20 05:27 Creatine Kinase 300 H Impressions: Abdomen Ultrasound 01/04/20 00:00 IMPRESSION: 1. 5.1 cm hypoechoic mass of the right hepatic lobe. There is minimal vascularity at its periphery. Differential diagnosis includes neoplasm. Recommend contrast CT or MRI of the abdomen, liver protocol. 2. Severe hepatic steatosis. 3. Gallbladder sludge. Abdomen/Pelvis CT 01/04/20 00:00 IMPRESSION: Acute pancreatitis without evidence of pseudocyst. Assessment and Plan - Diagnosis (1) Acute pancreatitis Qualifiers: Pancreatitis type: other Acute pancreatitis complication: no infection or necrosis Qualified Code(s): K85.80 - Other acute pancreatitis without necrosis or infection Is this a current diagnosis for this admission?: Yes Plan: Severe hypertriglyceridemia-induced acute pancreatitis. On admission, CT abdomen reviewed showing findings consistent with acute pancreatitis. Lipase over 3000. Continue aggressive continuous IV fluid hydration with normal saline and KCl supplement. Due to poor monitoring of urine output overnight, Vill[place] catheter was placed this morning for strict output given patient is critically ill. GEORGE noted this morning and patient has highly concentrated urine in the [place] bag. Concerned for significant third spacing into her peritoneum secondary to pancreatitis. Will monitor renal function and urine output very closely for any evidence of abdominal compartment syndrome. Repeat blood work this afternoon does seem to show some improvement of renal function and hypocalcemia. Upgraded to IMCU. (2) Hypertriglyceridemia Is this a current diagnosis for this admission?: Yes Plan: This triglyceride is over 9000. She has no idea of her family history because she is adopted. 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 Continue insulin drip with triglyceride levels every 12 hours and BMP. Will maintain insulin drip until triglycerides drops below 500. fenofibrate Pseudohyponatremia secondary to hypertriglyceridemia. (3) High anion gap metabolic acidosis Is this a current diagnosis for this admission?: Yes Plan: Metabolic acidosis and ketoacidosis are more so secondary to hypertriglyceridemia rather than DKA. On IV insulin. Will administer normal saline with KCl supplementation and monitor BMP. ABG obtained this morning showing compensated metabolic acidosis. I will also add sodium bicarbonate p.o. (4) New onset type 2 diabetes mellitus Is this a current diagnosis for this admission?: Yes Plan: Hemoglobin A1c of 8.9. Currently on insulin drip for management of hypertriglyceridemia. Will titrate insulin drip accordingly to keep blood sugar between 100-200. (5) Hypocalcemia Is this a current diagnosis for this admission?: Yes Plan: Secondary to hypertriglyceridemia pancreatitis. Corrected calcium is 7.2 this afternoon. Will give another 2 g of calcium gluconate. She is requiring a lot of calcium supplementation. I will place her also on oral calcium supplements. (6) Lesion of liver greater than 1 cm in diameter Is this a current diagnosis for this admission?: Yes Plan: Ultrasound found incidental hypoechoic 5.1 cm lesion in the liver right lobe. Will check liver protocol MRI with gadolinium to further evaluate this given size of lesion. (7) Hypercholesterolemia Is this a current diagnosis for this admission?: Yes Plan: Start on atorvastatin. LDL significantly elevated. (8) Metabolic syndrome Is this a current diagnosis for this admission?: Yes - Time Time Spent with patient: 15-24 minutes
[2020-01-06] MEDS: CALCIUM GLUC IN NACL, ISO-OSM 1 GM/50 ML RTUPB IV SCH ×2 (17:17→18:18)
[2020-01-06] MEDS: SODIUM BICARBONATE 650 MG TABLET PO SCH ×2 (17:22→22:28)
[2020-01-06] MEDS ORDERED: CALCIUM CARBONATE 600 MG TABLET PO SCH (18:00)
[2020-01-06 18:04] LABS: URINE PROTEIN 62.6 mg/dL (<12)
[2020-01-06 21:14] LABS: ANION GAP 7 (5-19); BLOOD UREA NITROGEN 11 mg/dL (7-20); CARBON DIOXIDE 17 mmol/L (22-30); CHLORIDE 110 mmol/L (98-107); POTASSIUM 4.1 mmol/L (3.6-5.0)
[2020-01-06 21:39] LABS: CALCIUM 6.9 mg/dL (8.4-10.2)
[2020-01-06 21:40] LABS: GLUCOSE 62 mg/dL (75-110)
[2020-01-06] MEDS: ATORVASTATIN CALCIUM 80 MG TABLET PO SCH (22:28)
[2020-01-06] MEDS: DEXTROSE 50%-WATER 25 GM/50 ML DISP.SYRIN IV PRN (22:47)
[2020-01-06] MEDS: IPRATROPIUM/ALBUTEROL 0.5-2.5 MG/3 ML AMPUL NEB PRN (23:15)
[2020-01-07] MEDS: MORPHINE SULFATE 10 MG/ML INJ IV PRN ×4 (00:01→20:12)
[2020-01-07] MEDS: METOPROLOL TARTRATE 25 MG TABLET PO SCH ×3 (00:15→05:11)
[2020-01-07] MEDS: DIAZEPAM INJ 10 MG/2 ML DISP.SYRIN IV PRN ×3 (01:02→14:40)
[2020-01-07] MEDS: POTASSI CL 20 MEQ/D5NS 1L 1000 ML IV PRN ×2 (01:32→04:27)
[2020-01-07] MEDS: IPRATROPIUM/ALBUTEROL 0.5-2.5 MG/3 ML AMPUL NEB PRN ×3 (02:58→20:06)
[2020-01-07] MEDS: HEPARIN SOD (PORCINE) 5,000 UNIT/ML 1 ML VIAL SUBCUT SCH ×3 (05:00→21:59)
[2020-01-07] MEDS ORDERED: PHARMACY COMMUNICATION ORDER MC NR (05:45)
[2020-01-07] MEDS ORDERED: GUAIFENESIN SYRP 200 MG/10 ML UDC NG PRN (06:00)
[2020-01-07] MEDS ORDERED: DICYCLOMINE HCL 20 MG TABLET NG PRN (06:00)
[2020-01-07] MEDS ORDERED: METOPROLOL TARTRATE 50 MG TABLET PO SCH (06:00)
[2020-01-07] MEDS ORDERED: MAG HYDROX/AL HYDROX/SIMETH SUSP 30 ML UDCUP NG PRN (06:00)
[2020-01-07] MEDS ORDERED: MAGNESIUM HYDROXIDE SUSP 30 ML UDCUP NG PRN (06:00)
[2020-01-07] MEDS ORDERED: OXYCODONE-ACETAMINOPHEN 5-325 MG TABLET NG PRN (06:00)
[2020-01-07] MEDS: METOPROLOL TARTRATE 50 MG TABLET NG SCH ×3 (06:17→17:41)
[2020-01-07] MEDS: METOPROLOL TARTRATE PF/INJ 5 MG/5 ML SDV IV SCH ×3 (06:18→07:06)
[2020-01-07] MEDS: KETOROLAC TROMETHAMINE INJ/PF 30 MG/1 ML SDV IV PRN (06:29)
[2020-01-07 06:45] LABS: HEMATOCRIT 40.9 % (36.0-47.0); HEMOGLOBIN 14.1 g/dL (12.0-15.5); MEAN CORPUSCULAR HEMOGLOBIN 31.1 pg (27.0-33.4); MEAN CORPUSCULAR HGB CONC 34.4 g/dL (32.0-36.0); MEAN CORPUSCULAR VOLUME 90 fl (80-97); PLATELET COUNT 305 10^3/uL (150-450); RED BLOOD COUNT 4.52 10^6/uL (3.72-5.28); RED CELL DISTRIBUTION WIDTH 15.5 % (11.5-14.0); WHITE BLOOD COUNT 8.1 10^3/uL (4.0-10.5)
[2020-01-07 07:07] LABS: ALBUMIN 2.4 g/dL (3.5-5.0); ALKALINE PHOSPHATASE 95 U/L (38-126); ASPARTATE AMINO TRANSFERASE 33 U/L (14-36); BILIRUBIN,DIRECT 0.6 mg/dL (0.0-0.4); BILIRUBIN,TOTAL 1.2 mg/dL (0.2-1.3); BLOOD UREA NITROGEN 12 mg/dL (7-20); CHLORIDE 110 mmol/L (98-107); GLUCOSE 331 mg/dL (75-110); POTASSIUM 4.7 mmol/L (3.6-5.0); TOTAL PROTEIN 4.9 g/dL (6.3-8.2)
[2020-01-07 07:13] LABS: ANION GAP 11 (5-19)
[2020-01-07 07:33] LABS: TRIGLYCERIDES 2081 mg/dL (<150)
[2020-01-07 07:34] LABS: CARBON DIOXIDE 10 mmol/L (22-30)
[2020-01-07] MEDS ORDERED: DEXTROSE 5%-LACTATED RINGERS 1,000 ML IV PRN (07:48)
[2020-01-07] MEDS ORDERED: SODIUM BICARBONATE 8.4% INJ 50 MEQ/50 ML DISP.SYRIN IV ONE ×3 (08:15→12:15)
--- NOTE | 2020-01-07 08:46 | RADIOLOGY REPORT (SQ) ---
EXAM DESCRIPTION: CHEST SINGLE VIEW IMAGES COMPLETED DATE/TIME: 01/07/2020 8:30 am REASON FOR STUDY: hypoxia COMPARISON: None. EXAM PARAMETERS: NUMBER OF VIEWS: One view. TECHNIQUE: Single frontal radiographic view of the chest acquired. RADIATION DOSE: NA LIMITATIONS: None. FINDINGS: LUNGS AND PLEURA: There is ill-defined airspace opacity in the right lung base. Bilateral low lung volumes are present. MEDIASTINUM AND HILAR STRUCTURES: No masses. Contour normal. HEART AND VASCULAR STRUCTURES: Heart normal in size. Normal vasculature. BONES: No acute findings. HARDWARE: None in the chest. OTHER: No other significant finding. IMPRESSION: Ill-defined airspace opacity in the right lung base. In the setting of low lung volumes , this may represent atelectasis. However, an infectious process such as pneumonia or a viral proces s is difficult to exclude. If clinically feasible, consider an upright PA and lateral chest x-ray fo r further characterization. TECHNICAL DOCUMENTATION: JOB ID: [id number] 2010 [employer]- All Rights Reserved Reading location - IP/workstation name: [email or web address]
[2020-01-07 08:57] LABS: ARTERIAL BLOOD H2CO3 0.62 mmol/L (1.05-1.35); ARTERIAL BLOOD HCO3 11.2 mmol/L (20-24); ARTERIAL BLOOD O2 SATURATION 95.9 % (94-98); ARTERIAL BLOOD PH 7.35 (7.35-7.45); ARTERIAL BLOOD PO2 81.8 mmHg (80-100); ARTERIAL BLOOD TOTAL CO2 11.8 mmol/L (21-25)
[2020-01-07 09:00] LABS: ARTERIAL BLOOD FIO2 3L
[2020-01-07 09:03] LABS: ARTERIAL BLOOD PCO2 20.5 mmHg (35-45)
[2020-01-07 09:10] LABS: APPEARANCE,URINE SLIGHTLY-CLOUDY; BILIRUBIN,URINE NEGATIVE (NEGATIVE); COLOR,URINE YELLOW; GLUCOSE, URINE >=500 mg/dL (NEGATIVE); KETONES,URINE 20 mg/dL (NEGATIVE); LEUKOCYTE ESTERASE,URINE NEGATIVE (NEGATIVE); NITRITE,URINE NEGATIVE (NEGATIVE); PROTEIN,URINE 30 mg/dL (NEGATIVE)
[2020-01-07] MEDS ORDERED: SODIUM BICARBONATE 650 MG TABLET NG SCH (10:00)
[2020-01-07] MEDS ORDERED: FENOFIBRATE NANOCRYSTALLIZED 145 MG TABLET NG SCH (10:00)
[2020-01-07] MEDS ORDERED: DIAZEPAM 5 MG TABLET ONE (10:13)
[2020-01-07] MEDS ORDERED: CALCIUM GLUCONATE 1000 MG/10 ML INJ IV ONE ×2 (10:58→18:14)
[2020-01-07] MEDS: ALBUMIN HUMAN 12.5 GM/50 ML RTUINJ IV SCH ×3 (11:34→16:07)
[2020-01-07] MEDS: CALCIUM GLUCONATE 1 GM/NS 50 ML RTU IV SCH ×4 (11:34→21:00)
[2020-01-07] MEDS: PANTOPRAZOLE SODIUM 40 MG VIAL IV SCH ×2 (11:34→21:59)
[2020-01-07] MEDS: CALCIUM CARBONATE 600 MG TABLET NG SCH ×2 (11:35→17:41)
[2020-01-07] MEDS: DULOXETINE HCL 30 MG CAPSULE.DR PO SCH (11:35)
--- NOTE | 2020-01-07 11:46 | RADIOLOGY REPORT (SQ) ---
EXAM DESCRIPTION: KUB/ABDOMEN (SINGLE VIEW) IMAGES COMPLETED DATE/TIME: 01/07/2020 11:18 am REASON FOR STUDY: ABDOMINAL DISTENTION COMPARISON: CT of the abdomen and pelvis from 01/04/2020 NUMBER OF VIEWS: One view. TECHNIQUE: An AP view of the abdomen was obtained. LIMITATIONS: None. FINDINGS: BOWEL GAS PATTERN: There are air-filled distended loops of small bowel in the left lower q uadrant that measure up to 2.3 cm in diameter. There is a combination of feces and air in the large bowel. CALCIFICATIONS: None. SOFT TISSUES: No abnormality. HARDWARE: None in the abdomen. BONES: No acute fracture. OTHER: No other finding. IMPRESSION: Nonspecific nonobstructive bowel gas pattern. TECHNICAL DOCUMENTATION: JOB ID: [id number] 2010 [employer]- All Rights Reserved Reading location - IP/workstation name: [email or web address]
--- NOTE | 2020-01-07 12:51 | RADIOLOGY REPORT (SQ) ---
EXAM DESCRIPTION: PICC INSERTION IMAGES COMPLETED DATE/TIME: 01/07/2020 11:24 am REASON FOR STUDY: Poor IV access on multiple drips COMPARISON: None. FLUOROSCOPY TIME: 2.08 minutes 1 images saved to PACS. TECHNIQUE: Fluoroscopic and ultrasound guided PICC placement. LIMITATIONS: None. PROCEDURE: After written consent and assessment were obtained, the patient was brought into the fluo roscopy room and placed supine on the table. Ultrasound evaluation of potential access sites were per formed. After successfully identifying a patent right brachiocephalic vein, the right upper arm was p repped and draped in a sterile fashion along with the ultrasound probe. The entry site was anesthetiz ed with 1% lidocaine. A 21 gauge 7 cm needle was advanced through the skin and into the right brachio cephalic vein under live ultrasound guidance. An ultrasound image was saved to PACS confirming acces s site. A .018 guide wire was then inserted through the needle and into the venous system. The needl e was then removed and an 11 blade scalpel was used to make a 1cm skin incision. A 5 fr peel-away sh eath was advanced over the wire and into the venous system. A measurement was then made using the exi sting wire and live fluoroscopic guidance. The wire was then removed and trimmed. The PICC was advanc ed through the peel-away sheath and into the venous system. The peel-away sheath was removed and the catheter was adhered to the patients arm with a stat lock. The catheter was then aspirated and flushe d and a sterile bandage was placed over the access site. A fluoroscopic spot image was saved to PACS confirming the catheter tip within the SVC. IMPRESSION: SUCCESSFUL PLACEMENT OF A 5 FR DUAL LUMEN 39 CM PICC IN THE RIGHT BRACHIOCEPHALIC VEIN. COMMENT: Patient medication list reviewed: Yes- Quality ID# 130:Eligible professional attests to doc umenting in the medical record they obtained, updated, or reviewed the patient's current medications. . Quality ID 145: Final reports for procedures using fluoroscopy that document radiation exposure denzel gloria, or exposure time and number of fluorographic images (if radiation exposure indices are not avail able) Quality ID #76: The patient was prepped and draped using maximum sterile barrier technique including cap, mask, sterile gown, sterile gloves, a large sterile sheet, hand hygiene, and 2% Chlorhexidine fo r cutaneous antisepsis. When ultrasound is used, sterile ultrasound techniques are followed requiring sterile gel and sterile probes. TECHNICAL DOCUMENTATION: JOB ID: [id number] 2010 [employer]- All Rights Reserved rev-12/05 Reading location - IP/workstation name: [email or web address]
[2020-01-07 13:36] LABS: ALBUMIN 2.4 g/dL (3.5-5.0); ALKALINE PHOSPHATASE 91 U/L (38-126); ANION GAP 10 (5-19); ASPARTATE AMINO TRANSFERASE 30 U/L (14-36); BILIRUBIN,DIRECT 0.6 mg/dL (0.0-0.4); BILIRUBIN,TOTAL 1.1 mg/dL (0.2-1.3); BLOOD UREA NITROGEN 10 mg/dL (7-20); CARBON DIOXIDE 13 mmol/L (22-30); CHLORIDE 108 mmol/L (98-107); GLUCOSE 266 mg/dL (75-110); TOTAL PROTEIN 4.9 g/dL (6.3-8.2)
[2020-01-07 13:46] LABS: POTASSIUM 3.5 mmol/L (3.6-5.0)
[2020-01-07 13:47] LABS: CALCIUM 6.2 mg/dL (8.4-10.2)
[2020-01-07] MEDS ORDERED: DEXTROSE 5%-LACTATED RINGERS 1,000 ML with POTASSIUM CHLORIDE 20 MEQ IV PRN ×2 (14:05)
[2020-01-07] MEDS ORDERED: BISACODYL 5 MG TABEC PO ONE (14:30)
[2020-01-07] MEDS: POTASSI CL 20 MEQ/D5LR 1L 20 MEQ/1,000 ML RTUINJ IV PRN ×2 (14:41→22:38)
[2020-01-07] MEDS ORDERED: POTASSIUM CHLORIDE 10 MEQ TABLET.ER PO ONE (15:00)
--- NOTE | 2020-01-07 15:33 | PDOC PROGRESS REPORT ---
Subjective Progress Note for:: 01/07/20 Subjective:: Patient felt very short of breath earlier this morning complaining of abdominal pain. Shortness of breath was likely complicated by abdominal distention. She did have a bowel movement later this morning and states it was a good amount. She was taken down for PICC line today. During encounter this afternoon, patient felt a lot more comfortable and her shortness of breath is resolved. Reason For Visit: ACUTE PANCREATITIS,ABDOMINAL PAIN,HYPERGLYCEMIA Physical Exam Vital Signs: Temp Pulse Resp BP Pulse Ox 98.1 F 104 H 16 137/86 H 94 01/07/20 12:10 01/07/20 12:26 01/07/20 12:26 01/07/20 12:10 01/07/20 12:26 Intake & Output 01/06/20 01/07/20 01/08/20 06:59 06:59 06:59 Intake Total 6922 5349 535 Output Total 75 550 700 Balance 6847 4799 -165 Weight 86 kg General appearance: PRESENT: no acute distress, cooperative Respiratory exam: PRESENT: clear to auscultation emil, symmetrical, unlabored. ABSENT: crackles, tachypnea, wheezes Cardiovascular exam: PRESENT: +S1, +S2, tachycardia. ABSENT: irregular rhythm GI/Abdominal exam: PRESENT: distended, soft, tenderness. ABSENT: rebound, rigid Neurological exam: PRESENT: alert, awake, oriented to person, oriented to place, oriented to time Results Laboratory Results: 01/07/20 06:24 01/07/20 12:50 01/06/20 01/06/20 01/06/20 15:04 15:04 20:33 WBC RBC Hgb Hct MCV MCH MCHC RDW Plt Count Carbonic Acid HCO3/H2CO3 Ratio ABG pH ABG pCO2 ABG pO2 ABG HCO3 ABG O2 Saturation ABG Base Excess FiO2 Sodium 132.4 L 134.0 L Potassium 3.7 D 4.1 Chloride 112 H 110 H Carbon Dioxide 12 L 17 L Anion Gap 8 7 BUN 10 11 Creatinine 0.92 0.97 Est GFR ( Amer) > 60 > 60 Glucose 144 H 62 L Lactic Acid Calcium 6.0 L* 6.9 L* Ionized Calcium [place] Magnesium 2.2 Total Bilirubin 0.7 AST 23 Alkaline Phosphatase 73 Total Protein 4.8 L Albumin 2.5 L Triglycerides 2552 H Lipase Urine Color Urine Appearance Urine pH Ur Specific [place] Urine Protein Urine Glucose (UA) Urine Ketones Urine Blood Urine Nitrite Ur Leukocyte Esterase Urine WBC (Auto) Urine RBC (Auto) 01/07/20 01/07/20 01/07/20 06:24 06:24 06:24 WBC 8.1 RBC 4.52 Hgb 14.1 Hct 40.9 MCV 90 MCH 31.1 MCHC 34.4 RDW 15.5 H Plt Count 305 Carbonic Acid HCO3/H2CO3 Ratio ABG pH ABG pCO2 ABG pO2 ABG HCO3 ABG O2 Saturation ABG Base Excess FiO2 Sodium 130.6 L Potassium 4.7 Chloride 110 H Carbon Dioxide 10 L* Anion Gap 11 BUN 12 Creatinine 0.82 Est GFR ( Amer) > 60 Glucose 331 H Lactic Acid Calcium 6.0 L* Ionized Calcium [place] 0.91 L Magnesium 1.9 Total Bilirubin 1.2 AST 33 Alkaline Phosphatase 95 Total Protein 4.9 L Albumin 2.4 L Triglycerides 2081 H Lipase 974.7 H Urine Color Urine Appearance Urine pH Ur Specific [place] Urine Protein Urine Glucose (UA) Urine Ketones Urine Blood Urine Nitrite Ur Leukocyte Esterase Urine WBC (Auto) Urine RBC (Auto) 01/07/20 01/07/20 01/07/20 08:30 08:48 12:50 WBC RBC Hgb Hct MCV MCH MCHC RDW Plt Count Carbonic Acid 0.62 L HCO3/H2CO3 Ratio 18:1 ABG pH 7.35 ABG pCO2 20.5 L* ABG pO2 81.8 ABG HCO3 11.2 L ABG O2 Saturation 95.9 ABG Base Excess -12.0 FiO2 3L Sodium Potassium Chloride Carbon Dioxide Anion Gap BUN Creatinine Est GFR ( Amer) Glucose Lactic Acid 1.3 Calcium Ionized Calcium [place] Magnesium Total Bilirubin AST Alkaline Phosphatase Total Protein Albumin Triglycerides Lipase Urine Color YELLOW Urine Appearance SLIGHTLY-CLOUDY Urine pH 5.0 Ur Specific [place] 1.020 Urine Protein 30 H Urine Glucose (UA) >=500 H Urine Ketones 20 H Urine Blood LARGE H Urine Nitrite NEGATIVE Ur Leukocyte Esterase NEGATIVE Urine WBC (Auto) 2 Urine RBC (Auto) 129 01/07/20 12:50 WBC RBC Hgb Hct MCV MCH MCHC RDW Plt Count Carbonic Acid HCO3/H2CO3 Ratio ABG pH ABG pCO2 ABG pO2 ABG HCO3 ABG O2 Saturation ABG Base Excess FiO2 Sodium 130.8 L Potassium 3.5 L D Chloride 108 H Carbon Dioxide 13 L Anion Gap 10 BUN 10 Creatinine 0.71 Est GFR ( Amer) > 60 Glucose 266 H Lactic Acid Calcium 6.2 L* Ionized Calcium [place] Magnesium Total Bilirubin 1.1 AST 30 Alkaline Phosphatase 91 Total Protein 4.9 L Albumin 2.4 L Triglycerides Lipase Urine Color Urine Appearance Urine pH Ur Specific [place] Urine Protein Urine Glucose (UA) Urine Ketones Urine Blood Urine Nitrite Ur Leukocyte Esterase Urine WBC (Auto) Urine RBC (Auto) 01/06/20 05:27 Creatine Kinase 300 H Impressions: Abdomen Ultrasound 01/04/20 00:00 IMPRESSION: 1. 5.1 cm hypoechoic mass of the right hepatic lobe. There is minimal vascularity at its periphery. Differential diagnosis includes neoplasm. Recommend contrast CT or MRI of the abdomen, liver protocol. 2. Severe hepatic steatosis. 3. Gallbladder sludge. Abdomen/Pelvis CT 01/04/20 00:00 IMPRESSION: Acute pancreatitis without evidence of pseudocyst. Chest X-Ray 01/07/20 00:00 IMPRESSION: Ill-defined airspace opacity in the right lung base. In the setting of low lung volumes, this may represent atelectasis. However, an infectious process such as pneumonia or a viral process is difficult to exclude. If clinically feasible, consider an upright PA and lateral chest x-ray for further characterization. PICC Line Insertion 01/07/20 00:00 IMPRESSION: SUCCESSFUL PLACEMENT OF A 5 FR DUAL LUMEN 39 CM PICC IN THE RIGHT BRACHIOCEPHALIC VEIN. KUB X-Ray 01/07/20 05:44 IMPRESSION: Nonspecific nonobstructive bowel gas pattern. Assessment and Plan - Diagnosis (1) Acute pancreatitis Qualifiers: Pancreatitis type: other Acute pancreatitis complication: no infection or necrosis Qualified Code(s): K85.80 - Other acute pancreatitis without necrosis or infection Is this a current diagnosis for this admission?: Yes Plan: Severe hypertriglyceridemia-induced acute pancreatitis. On admission, CT abdomen reviewed showing findings consistent with acute pancreatitis. Lipase over 3000. IV fluids switched to D5 LR with KCl supplements currently at 150 cc/h. Pain control Patient is still hypocalcemic from fat saponification of the pancreas but hypocalcemia does seem to be improving. We will continue to supplement as needed. It seems that patient's renal function has started to improve and urine is no longer as concentrated as it was yesterday and now appearing clear. Urine outp ut is also showing significant improvement now. I believe that the concomitant albumin infusions with fluid administered yesterday and today helped redistribute third spaced volume back into the intravascular space and may have very well helped avert abdominal compartment syndrome. (2) Hypertriglyceridemia Is this a current diagnosis for this admission?: Yes Plan: This triglyceride is over 9000. She has no idea of her family history because she is adopted. 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 Continue insulin drip with triglyceride levels every 12 hours and BMP to monitor potassium. Will maintain insulin drip until triglycerides drops below 500. fenofibrate (3) High anion gap metabolic acidosis Is this a current diagnosis for this admission?: Yes Plan: On admission, metabolic acidosis and ketoacidosis are more so secondary to hypertriglyceridemia rather than DKA. Continue IV insulin. Patient seems to be having non-anion gap metabolic acidosis this morning with bicarb of 10 on BMP. Give some sodium bicarb. Lactic acid is normal. We will continue to monitor. D5 LR running and sodium bicarb p.o. supplements. (4) New onset type 2 diabetes mellitus Is this a current diagnosis for this admission?: Yes Plan: Hemoglobin A1c of 8.9. Currently on insulin drip for management of hypertriglyceridemia. 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 (5) Hypocalcemia Is this a current diagnosis for this admission?: Yes Plan: Secondary to fat saponification from pancreatitis. Corrected calcium is 7.5 this afternoon. Administered calcium gluconate and will continue on oral supplements. We will continue to monitor metabolic panels closely. (6) Sinus tachycardia Is this a current diagnosis for this admission?: Yes Plan: Has been having persistent sinus tachycardia often in the 130s to 140s. Pain has been addressed. Anxiety has been addressed. Not hypoxic. Not anemic. Tachycardia is likely secondary to concurrent illness and inflammatory state. However given weights been over 140s patient was started on p.o. Lopressor which has been uptitrated to 50 mg every 6. Tachycardia seems to have improved. (7) Abdominal distention Is this a current diagnosis for this admission?: Yes Plan: Seems to be improving. She had a decent sized bowel movement this morning as well. Likely also complicated by third spacing from pancreatitis. KUB does not show any obstruction or ileus pattern. Ambulation encouraged. (8) Atelectasis Is this a current diagnosis for this admission?: Yes Plan: Incentive spirometer. Ambulation encouraged. (9) Lesion of liver greater than 1 cm in diameter Is this a current diagnosis for this admission?: Yes Plan: Ultrasound found incidental hypoechoic 5.1 cm lesion in the liver right lobe. Liver protocol MRI with gadolinium recommended to further evaluate this given size of lesion. (10) Hypercholesterolemia Is this a current diagnosis for this admission?: Yes Plan: Start on atorvastatin. LDL significantly elevated. (11) Metabolic syndrome Is this a current diagnosis for this admission?: Yes - Time Time Spent with patient: 15-24 minutes
[2020-01-07] MEDS ORDERED: NORMAL SALINE 10 ML SDV (AFTER EACH USE) IV PRN (17:00)
[2020-01-07 17:33] LABS: ALBUMIN 2.5 g/dL (3.5-5.0); ANION GAP 8 (5-19); BLOOD UREA NITROGEN 8 mg/dL (7-20); CARBON DIOXIDE 17 mmol/L (22-30); CHLORIDE 107 mmol/L (98-107); GLUCOSE 250 mg/dL (75-110); POTASSIUM 3.1 mmol/L (3.6-5.0)
[2020-01-07 17:48] LABS: CALCIUM 6.3 mg/dL (8.4-10.2); TRIGLYCERIDES 1420 mg/dL (<150)
[2020-01-07] MEDS ORDERED: MAGNESIUM HYDROXIDE SUSP 30 ML UDCUP PO PRN (18:00)
[2020-01-07] MEDS ORDERED: MAG HYDROX/AL HYDROX/SIMETH SUSP 30 ML UDCUP PO PRN (18:30)
[2020-01-07] MEDS ORDERED: OXYCODONE-ACETAMINOPHEN 5-325 MG TABLET PO PRN (18:30)
[2020-01-07] MEDS ORDERED: DICYCLOMINE HCL 20 MG TABLET PO PRN (18:30)
[2020-01-07] MEDS ORDERED: GUAIFENESIN SYRP 200 MG/10 ML UDC PO PRN (18:30)
[2020-01-07] MEDS: ATORVASTATIN CALCIUM 80 MG TABLET PO SCH (21:58)
[2020-01-07] MEDS: SODIUM BICARBONATE 650 MG TABLET PO SCH (22:00)
[2020-01-07] MEDS ORDERED: ATORVASTATIN CALCIUM 80 MG TABLET NG SCH (22:00)
[2020-01-07] MEDS: NORMAL SALINE 100 ML with INSULIN REGULAR, HUMAN 100 UNIT IV PRN ×2 (22:04)
[2020-01-07] MEDS: POTASSI CL 20 MEQ/50 ML RIDER 20 MEQ/50 ML RTUPB IV SCH ×2 (22:09→23:56)
[2020-01-07] MEDS: NORMAL SALINE 10 ML SDV (SCHEDULED) IV SCH (22:34)
[2020-01-08] MEDS: METOPROLOL TARTRATE 50 MG TABLET PO SCH ×5 (00:16→23:38)
[2020-01-08] MEDS: KETOROLAC TROMETHAMINE INJ/PF 30 MG/1 ML SDV IV PRN ×3 (00:16→22:29)
[2020-01-08] MEDS: MORPHINE SULFATE 10 MG/ML INJ IV PRN ×4 (03:17→19:24)
[2020-01-08] MEDS: DEXTROSE 50%-WATER 25 GM/50 ML DISP.SYRIN IV PRN (03:22)
[2020-01-08] MEDS: HEPARIN SOD (PORCINE) 5,000 UNIT/ML 1 ML VIAL SUBCUT SCH ×3 (05:23→21:58)
[2020-01-08] MEDS: POTASSI CL 20 MEQ/D5LR 1L 20 MEQ/1,000 ML RTUINJ IV PRN ×3 (05:24→19:05)
[2020-01-08 05:47] LABS: ABSOLUTE EOSINOPHILS # (AUTO) 0.1 10^3/uL (0.0-0.6); ABSOLUTE LYMPHOCYTES (AUTO) 1.1 10^3/uL (0.5-4.7); ABSOLUTE MONOCYTES (AUTO) 0.5 10^3/uL (0.1-1.4); ABSOLUTE NEUT (AUTO) 5.6 10^3/uL (1.7-8.2); BASOPHILS % (AUTO) 0.4 % (0-2); EOSINOPHILS % (AUTO) 1.8 % (0-6); HEMATOCRIT 32.2 % (36.0-47.0); LYMPHOCYTES % (AUTO) 15.1 % (13-45); MEAN CORPUSCULAR HEMOGLOBIN 30.5 pg (27.0-33.4); MEAN CORPUSCULAR HGB CONC 33.6 g/dL (32.0-36.0); MEAN CORPUSCULAR VOLUME 91 fl (80-97); MONOCYTES % (AUTO) 6.5 % (3-13); PLATELET COUNT 283 10^3/uL (150-450); RED BLOOD COUNT 3.55 10^6/uL (3.72-5.28); RED CELL DISTRIBUTION WIDTH 16.2 % (11.5-14.0); SEGMENTED NEUTROPHILS % (AUTO) 76.2 % (42-78); TOTAL CELLS COUNTED % (AUTO) 100 %; WHITE BLOOD COUNT 7.4 10^3/uL (4.0-10.5)
[2020-01-08 05:58] LABS: HEMOGLOBIN 10.8 g/dL (12.0-15.5)
[2020-01-08 06:03] LABS: ALBUMIN 2.5 g/dL (3.5-5.0); ALKALINE PHOSPHATASE 94 U/L (38-126); ANION GAP 7 (5-19); ASPARTATE AMINO TRANSFERASE 35 U/L (14-36); BILIRUBIN,DIRECT 0.6 mg/dL (0.0-0.4); BILIRUBIN,TOTAL 1.2 mg/dL (0.2-1.3); BLOOD UREA NITROGEN 3 mg/dL (7-20); CARBON DIOXIDE 18 mmol/L (22-30); CHLORIDE 107 mmol/L (98-107); GLUCOSE 252 mg/dL (75-110); POTASSIUM 3.9 mmol/L (3.6-5.0); TOTAL PROTEIN 4.8 g/dL (6.3-8.2)
[2020-01-08 06:16] LABS: TRIGLYCERIDES 1121 mg/dL (<150)
[2020-01-08 06:17] LABS: CALCIUM 6.7 mg/dL (8.4-10.2)
[2020-01-08] MEDS: IPRATROPIUM/ALBUTEROL 0.5-2.5 MG/3 ML AMPUL NEB PRN ×2 (06:41→14:44)
[2020-01-08] MEDS: SODIUM BICARBONATE 650 MG TABLET PO SCH ×2 (10:49→21:59)
[2020-01-08] MEDS: PANTOPRAZOLE SODIUM 40 MG VIAL IV SCH ×2 (10:49→21:58)
[2020-01-08] MEDS: CALCIUM CARBONATE 600 MG TABLET PO SCH ×2 (10:49→17:28)
[2020-01-08] MEDS: DULOXETINE HCL 30 MG CAPSULE.DR PO SCH (10:49)
[2020-01-08] MEDS: FENOFIBRATE NANOCRYSTALLIZED 145 MG TABLET PO SCH (10:49)
[2020-01-08] MEDS: NORMAL SALINE 10 ML SDV (SCHEDULED) IV SCH ×2 (10:50→22:00)
--- NOTE | 2020-01-08 14:07 | PDOC PROGRESS REPORT ---
Subjective Progress Note for:: 01/08/20 Subjective:: Patient states he feels better today. Still having some abdominal pain. Had on the bowel movements yesterday night. Feels better unable to tolerate liquid diet. Denies any formal GI or vaginal bleeding. Reason For Visit: ACUTE PANCREATITIS,ABDOMINAL PAIN,HYPERGLYCEMIA Physical Exam Vital Signs: Temp Pulse Resp BP Pulse Ox 97.5 F 104 H 18 124/81 97 01/08/20 07:53 01/08/20 07:53 01/08/20 07:53 01/08/20 07:53 01/08/20 07:53 Intake & Output 01/07/20 01/08/20 01/09/20 06:59 06:59 06:59 Intake Total 5349 2997 1014 Output Total 550 3450 1500 Balance 9299 -453 -891 Weight 86 kg 88.1 kg General appearance: PRESENT: no acute distress, cooperative Neck exam: ABSENT: JVD Respiratory exam: PRESENT: clear to auscultation emil, unlabored. ABSENT: tachypnea, wheezes Cardiovascular exam: PRESENT: +S1, +S2, tachycardia. ABSENT: irregular rhythm GI/Abdominal exam: PRESENT: distended, soft, tenderness. ABSENT: firm, guarding, rebound, rigid Neurological exam: PRESENT: alert, awake, oriented to person, oriented to place, oriented to time, oriented to situation Results Laboratory Results: 01/08/20 05:10 01/08/20 05:10 01/07/20 01/08/20 01/08/20 17:06 05:10 05:10 WBC 7.4 RBC 3.55 L Hgb 10.8 L D Hct 32.2 L MCV 91 MCH 30.5 MCHC 33.6 RDW 16.2 H Plt Count 283 Seg Neutrophils % 76.2 Sodium 132.0 L 132.0 L Potassium 3.1 L 3.9 Chloride 107 107 Carbon Dioxide 17 L 18 L Anion Gap 8 7 BUN 8 3 L Creatinine 0.62 0.52 Est GFR ( Amer) > 60 > 60 Glucose 250 H 252 H Calcium 6.3 L* 6.7 L* Ionized Calcium [place] Magnesium 1.9 1.6 Total Bilirubin 1.2 AST 35 Alkaline Phosphatase 94 Total Protein 4.8 L Albumin 2.5 L 2.5 L Triglycerides 1420 H 1121 H 01/08/20 05:10 WBC RBC Hgb Hct MCV MCH MCHC RDW Plt Count Seg Neutrophils % Sodium Potassium Chloride Carbon Dioxide Anion Gap BUN Creatinine Est GFR ( Amer) Glucose Calcium Ionized Calcium [place] 1.00 L Magnesium Total Bilirubin AST Alkaline Phosphatase Total Protein Albumin Triglycerides 01/06/20 05:27 Creatine Kinase 300 H Impressions: Abdomen Ultrasound 01/04/20 00:00 IMPRESSION: 1. 5.1 cm hypoechoic mass of the right hepatic lobe. There is minimal vascularity at its periphery. Differential diagnosis includes neoplasm. Recommend contrast CT or MRI of the abdomen, liver protocol. 2. Severe hepatic steatosis. 3. Gallbladder sludge. Abdomen/Pelvis CT 01/04/20 00:00 IMPRESSION: Acute pancreatitis without evidence of pseudocyst. Chest X-Ray 01/07/20 00:00 IMPRESSION: Ill-defined airspace opacity in the right lung base. In the setting of low lung volumes, this may represent atelectasis. However, an infec tious process such as pneumonia or a viral process is difficult to exclude. If clinically feasible, consider an upright PA and lateral chest x-ray for further characterization. PICC Line Insertion 01/07/20 00:00 IMPRESSION: SUCCESSFUL PLACEMENT OF A 5 FR DUAL LUMEN 39 CM PICC IN THE RIGHT BRACHIOCEPHALIC VEIN. KUB X-Ray 01/07/20 05:44 IMPRESSION: Nonspecific nonobstructive bowel gas pattern. Assessment and Plan - Diagnosis (1) Acute pancreatitis Qualifiers: Pancreatitis type: other Acute pancreatitis complication: no infection or necrosis Qualified Code(s): K85.80 - Other acute pancreatitis without necrosis or infection Is this a current diagnosis for this admission?: Yes Plan: Severe hypertriglyceridemia-induced acute pancreatitis. On admission, CT abdomen reviewed showing findings consistent with acute pancreatitis. Lipase over 3000. IV fluids switched to D5 LR with KCl supplements currently at 150 cc/h. Pain control Patient is still hypocalcemic from fat saponification of the pancreas but hypocalcemia does seem to be improving. supplement as needed. It seems that patient's renal function has started to improve and urine is no longer as concentrated as it was yesterday and now appearing clear. Urine output is also showing significant improvement now. I believe that the concomitant albumin infusions with fluid administered helped redistribute third spaced volume back into the intravascular space and may have very well helped avert abdominal compartment syndrome. I will advance diet to GI soft bland diet (2) Hypertriglyceridemia Is this a current diagnosis for this admission?: Yes Plan: This triglyceride is over 9000. She has no idea of her family history because she is adopted. 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 Continue insulin drip with triglyceride levels every 12 hours and BMP to monitor potassium. Will maintain insulin drip until triglycerides drops below 500. fenofibrate (3) High anion gap metabolic acidosis Is this a current diagnosis for this admission?: Yes Plan: Anion gap has normalized. Metabolic acidosis seems to be improving. Continue p.o. bicarbonate supplements. (4) New onset type 2 diabetes mellitus Is this a current diagnosis for this admission?: Yes Plan: Hemoglobin A1c of 8.9. Currently on insulin drip for management of hypertr iglyceridemia. Keep blood sugar between 100-200. special education paraeducator. (5) Hypocalcemia Is this a current diagnosis for this admission?: Yes Plan: Secondary to fat saponification from pancreatitis. Improving. Corrected calcium is 7.9 today. We will give 1 g of calcium gluconate and continue with p.o. calcium supplements. Overall calcium gluconate requirements are reducing. We will continue to monitor metabolic panels closely. (6) Sinus tachycardia Is this a current diagnosis for this admission?: Yes Plan: Has been having persistent sinus tachycardia often in the 130s to 140s. Pain has been addressed. Anxiety has been addressed. Not hypoxic. Not anemic. Tachycardia is likely secondary to concurrent illness and inflammatory state. However given weights been over 140s patient was started on p.o. Lopressor which has been uptitrated to 50 mg every 6. Tachycardia seems to have improved. (7) Abdominal distention Is this a current diagnosis for this admission?: Yes Plan: Seems to be improving. Likely constipation which is resolving also complicated by third spacing from pancreatitis. KUB does not show any obstruction or ileus pattern. Ambulation encouraged. (8) Atelectasis Is this a current diagnosis for this admission?: Yes Plan: Incentive spirometer. Ambulation encouraged. (9) Lesion of liver greater than 1 cm in diameter Is this a current diagnosis for this admission?: Yes Plan: Ultrasound found incidental hypoechoic 5.1 cm lesion in the liver right lobe. Addendum was made to CT scan done on admission by radiologist stating that the area of 5.1 cm seen on ultrasound seems to have corresponded with the area of significant fatty infiltration/hepatic steatosis noted on CT and malignancy is very unlikely. We will forego further imaging at this time. (10) Anemia Qualifiers: Anemia type: unspecified type Qualified Code(s): D64.9 - Anemia, unspecif ied Is this a current diagnosis for this admission?: Yes Plan: Hemoglobin dropped from 14.1-10.8 today. She has no evidence of bleeding and de nies any overt GI or bleeding. Patient underwent PICC line yesterday which was difficult but certainly did not lead to this much drop in hemoglobin. I will repeat CBC later today. (11) Hypercholesterolemia Is this a current diagnosis for this admission?: Yes (12) Metabolic syndrome Is this a current diagnosis for this admission?: Yes - Time Time Spent with patient: Less than 15 minutes
[2020-01-08 14:25] LABS: HEMATOCRIT 32.9 % (36.0-47.0); HEMOGLOBIN 11.5 g/dL (12.0-15.5); MEAN CORPUSCULAR HEMOGLOBIN 30.5 pg (27.0-33.4); MEAN CORPUSCULAR HGB CONC 34.9 g/dL (32.0-36.0); MEAN CORPUSCULAR VOLUME 88 fl (80-97); PLATELET COUNT 320 10^3/uL (150-450); RED BLOOD COUNT 3.76 10^6/uL (3.72-5.28); RED CELL DISTRIBUTION WIDTH 15.6 % (11.5-14.0); WHITE BLOOD COUNT 7.9 10^3/uL (4.0-10.5)
[2020-01-08] MEDS ORDERED: CALCIUM GLUCONATE 1000 MG/10 ML INJ IV ONE ×2 (15:00→18:49)
[2020-01-08] MEDS: NORMAL SALINE 100 ML with INSULIN REGULAR, HUMAN 100 UNIT IV PRN ×2 (16:30)
[2020-01-08 19:19] LABS: ALBUMIN 2.5 g/dL (3.5-5.0); ALKALINE PHOSPHATASE 117 U/L (38-126); ANION GAP 5 (5-19); ASPARTATE AMINO TRANSFERASE 51 U/L (14-36); BILIRUBIN,DIRECT 0.6 mg/dL (0.0-0.4); BILIRUBIN,TOTAL 1.1 mg/dL (0.2-1.3); BLOOD UREA NITROGEN 2 mg/dL (7-20); CALCIUM 7.6 mg/dL (8.4-10.2); CARBON DIOXIDE 22 mmol/L (22-30); CHLORIDE 103 mmol/L (98-107); GLUCOSE 205 mg/dL (75-110); PHOSPHORUS 1.2 mg/dL (2.5-4.5); POTASSIUM 3.2 mmol/L (3.6-5.0); TOTAL PROTEIN 5.1 g/dL (6.3-8.2)
--- NOTE | 2020-01-08 21:14 | EKG REPORT ---
SEVERITY:- BORDERLINE ECG - SINUS TACHYCARDIA BORDERLINE T ABNORMALITIES, DIFFUSE LEADS : Confirmed by: Joel Roach MD 08-Jan-2020 21:13:47
[2020-01-08] MEDS: POTASSI CL 20 MEQ/50 ML RIDER 20 MEQ/50 ML RTUPB IV SCH (21:58)
[2020-01-08] MEDS: ATORVASTATIN CALCIUM 80 MG TABLET PO SCH (21:59)
[2020-01-08] MEDS ORDERED: POTASSIUM CHLORIDE 20 MEQ/50 ML RTU IV ONE (22:30)
[2020-01-08] MEDS ORDERED: METOPROLOL TARTRATE 50 MG TABLET PO ONE (23:45)
[2020-01-09] MEDS: POTASSI CL 20 MEQ/50 ML RIDER 20 MEQ/50 ML RTUPB IV SCH (00:11)
[2020-01-09] MEDS: MORPHINE SULFATE 10 MG/ML INJ IV PRN ×2 (01:30→08:26)
[2020-01-09] MEDS: POTASSI CL 20 MEQ/D5LR 1L 20 MEQ/1,000 ML RTUINJ IV PRN ×2 (02:04→09:09)
[2020-01-09] MEDS: METOPROLOL TARTRATE 100 MG TABLET PO SCH ×4 (05:46→23:11)
[2020-01-09] MEDS: HEPARIN SOD (PORCINE) 5,000 UNIT/ML 1 ML VIAL SUBCUT SCH ×3 (05:46→23:10)
[2020-01-09 05:55] LABS: ABSOLUTE EOSINOPHILS # (AUTO) 0.3 10^3/uL (0.0-0.6); ABSOLUTE LYMPHOCYTES (AUTO) 1.6 10^3/uL (0.5-4.7); ABSOLUTE MONOCYTES (AUTO) 0.8 10^3/uL (0.1-1.4); ABSOLUTE NEUT (AUTO) 5.1 10^3/uL (1.7-8.2); BASOPHILS % (AUTO) 0.4 % (0-2); EOSINOPHILS % (AUTO) 3.2 % (0-6); HEMATOCRIT 31.7 % (36.0-47.0); HEMOGLOBIN 10.6 g/dL (12.0-15.5); LYMPHOCYTES % (AUTO) 20.3 % (13-45); MEAN CORPUSCULAR HEMOGLOBIN 30.6 pg (27.0-33.4); MEAN CORPUSCULAR HGB CONC 33.5 g/dL (32.0-36.0); MEAN CORPUSCULAR VOLUME 91 fl (80-97); MONOCYTES % (AUTO) 10.5 % (3-13); PLATELET COUNT 301 10^3/uL (150-450); RED BLOOD COUNT 3.47 10^6/uL (3.72-5.28); RED CELL DISTRIBUTION WIDTH 16.2 % (11.5-14.0); SEGMENTED NEUTROPHILS % (AUTO) 65.6 % (42-78); TOTAL CELLS COUNTED % (AUTO) 100 %; WHITE BLOOD COUNT 7.8 10^3/uL (4.0-10.5)
[2020-01-09 06:03] LABS: ALBUMIN 2.1 g/dL (3.5-5.0); ALKALINE PHOSPHATASE 119 U/L (38-126); ANION GAP 5 (5-19); ASPARTATE AMINO TRANSFERASE 75 U/L (14-36); BILIRUBIN,DIRECT 0.4 mg/dL (0.0-0.4); BILIRUBIN,TOTAL 0.9 mg/dL (0.2-1.3); BLOOD UREA NITROGEN 2 mg/dL (7-20); CALCIUM 7.7 mg/dL (8.4-10.2); CARBON DIOXIDE 19 mmol/L (22-30); CHLORIDE 108 mmol/L (98-107); PHOSPHORUS 1.1 mg/dL (2.5-4.5); TOTAL PROTEIN 4.2 g/dL (6.3-8.2)
[2020-01-09 06:28] LABS: POTASSIUM 6.4 mmol/L (3.6-5.0)
[2020-01-09 06:29] LABS: GLUCOSE 611 mg/dL (75-110)
[2020-01-09 07:09] LABS: ALBUMIN 2.6 g/dL (3.5-5.0); ALKALINE PHOSPHATASE 153 U/L (38-126); ANION GAP 8 (5-19); ASPARTATE AMINO TRANSFERASE 104 U/L (14-36); BILIRUBIN,DIRECT 0.5 mg/dL (0.0-0.4); BILIRUBIN,TOTAL 1.1 mg/dL (0.2-1.3); BLOOD UREA NITROGEN 2 mg/dL (7-20); CALCIUM 8.1 mg/dL (8.4-10.2); CARBON DIOXIDE 21 mmol/L (22-30); CHLORIDE 103 mmol/L (98-107); GLUCOSE 190 mg/dL (75-110); TOTAL PROTEIN 5.2 g/dL (6.3-8.2)
[2020-01-09 07:20] LABS: POTASSIUM 3.4 mmol/L (3.6-5.0)
[2020-01-09] MEDS: IPRATROPIUM/ALBUTEROL 0.5-2.5 MG/3 ML AMPUL NEB PRN (07:48)
[2020-01-09] MEDS ORDERED: POTASSIUM PHOS,M-BASIC-D-BASIC 30 MMOL in NORMAL SALINE 500 ML IV ONE ×2 (09:00→11:30)
[2020-01-09] MEDS: FENOFIBRATE NANOCRYSTALLIZED 145 MG TABLET PO SCH (09:07)
[2020-01-09] MEDS: DULOXETINE HCL 30 MG CAPSULE.DR PO SCH (09:07)
[2020-01-09] MEDS: PANTOPRAZOLE SODIUM 40 MG VIAL IV SCH ×2 (09:07→23:11)
[2020-01-09] MEDS: NORMAL SALINE 10 ML SDV (SCHEDULED) IV SCH ×2 (09:08→23:12)
[2020-01-09] MEDS ORDERED: ACETAMINOPHEN 325 MG TABLET PO PRN (10:27)
[2020-01-09] MEDS ORDERED: KETOROLAC TROMETHAMINE INJ/PF 30 MG/1 ML SDV IV PRN (10:28)
[2020-01-09] MEDS ORDERED: OMEGA-3 ACID ETHYL ESTERS 1 GM CAPSULE PO ONE (11:00)
[2020-01-09] MEDS ORDERED: POTASSIUM CHLORIDE 10 MEQ TABLET.ER PO ONE (11:00)
--- NOTE | 2020-01-09 11:02 | PDOC PROGRESS REPORT ---
Subjective Progress Note for:: 01/09/20 Subjective:: Patient feels better today. Still having abdominal pain. Was not able to eat much yesterday but did eat her breakfast completely. Denies any nausea vomiting at this time. She states that she started her menstrual period yesterday. Reason For Visit: ACUTE PANCREATITIS,ABDOMINAL PAIN,HYPERGLYCEMIA Physical Exam Vital Signs: Temp Pulse Resp BP Pulse Ox 99.8 F 103 H 18 138/74 H 95 01/09/20 07:35 01/09/20 07:50 01/09/20 07:50 01/09/20 07:35 01/09/20 07:50 Intake & Output 01/08/20 01/09/20 01/10/20 06:59 06:59 06:59 Intake Total 2997 3358 1000 Output Total 3450 6186 Balance -453 -3686 1000 Weight 88.1 kg 87 kg General appearance: PRESENT: no acute distress, cooperative Neck exam: ABSENT: JVD Respiratory exam: PRESENT: clear to auscultation emil, symmetrical, unlabored. ABSENT: tachypnea, wheezes Cardiovascular exam: PRESENT: +S1, +S2, tachycardia. ABSENT: irregular rhythm GI/Abdominal exam: PRESENT: distended, soft. ABSENT: guarding, rebound, rigid, tenderness Neurological exam: PRESENT: alert, awake, oriented to person, oriented to place, oriented to time Psychiatric exam: ABSENT: agitated, anxious Focused psych exam: ABSENT: pressured speech Skin exam: ABSENT: jaundice Results Laboratory Results: 01/09/20 05:22 01/09/20 06:38 01/08/20 01/08/20 01/09/20 14:00 18:40 05:22 WBC 7.9 7.8 RBC 3.76 3.47 L Hgb 11.5 L 10.6 L Hct 32.9 L 31.7 L MCV 88 91 MCH 30.5 30.6 MCHC 34.9 33.5 RDW 15.6 H 16.2 H Plt Count 320 301 Seg Neutrophils % 65.6 Sodium 130.0 L Potassium 3.2 L Chloride 103 Carbon Dioxide 22 Anion Gap 5 BUN 2 L Creatinine 0.57 Est GFR ( Amer) > 60 Glucose 205 H Calcium 7.6 L Ionized Calcium [place] Phosphorus 1.2 L Magnesium 1.6 Total Bilirubin 1.1 AST 51 H Alkaline Phosphatase 117 Total Protein 5.1 L Albumin 2.5 L Triglycerides 01/09/20 01/09/20 01/09/20 05:22 05:22 06:38 WBC RBC Hgb Hct MCV MCH MCHC RDW Plt Count Seg Neutrophils % Sodium 132.0 L 131.7 L Potassium 6.4 H* D 3.4 L D Chloride 108 H 103 Carbon Dioxide 19 L 21 L Anion Gap 5 8 BUN 2 L 2 L Creatinine 0.62 0.73 Est GFR ( Amer) > 60 > 60 Glucose 611 H* 190 H Calcium 7.7 L 8.1 L Ionized Calcium [place] 1.07 L Phosphorus 1.1 L Magnesium 1.3 L Total Bilirubin 0.9 1.1 AST 75 H 104 H Alkaline Phosphatase 119 153 H Total Protein 4.2 L 5.2 L Albumin 2.1 L 2.6 L Triglycerides 01/09/20 06:38 WBC RBC Hgb Hct MCV MCH MCHC RDW Plt Count Seg Neutrophils % Sodium Potassium Chloride Carbon Dioxide Anion Gap BUN Creatinine Est GFR ( Amer) Glucose Calcium Ionized Calcium [place] Phosphorus Magnesium Total Bilirubin AST Alkaline Phosphatase Total Protein Albumin Triglycerides 477 H 01/06/20 05:27 Creatine Kinase 300 H Impressions: Abdomen Ultrasound 01/04/20 00:00 IMPRESSION: 1. 5.1 cm hypoechoic mass of the right hepatic lobe. There is minimal vascularity at its periphery. Differential diagnosis includes neoplasm. Recommend contrast CT or MRI of the abdomen, liver protocol. 2. Severe hepatic steatosis. 3. Gallbladder sludge. Abdomen/Pelvis CT 01/04/20 00:00 IMPRESSION: Acute pancreatitis without evidence of pseudocyst. Chest X-Ray 01/07/20 00:00 IMPRESSION: Ill-defined airspace opacity in the right lung base. In the se tting of low lung volumes, this may represent atelectasis. However, an infectious process such as pneumonia or a viral process is difficult to exclude. If clinically feasible, consider an upright PA and lateral chest x-ray for further characterization. PICC Line Insertion 01/07/20 00:00 IMPRESSION: SUCCESSFUL PLACEMENT OF A 5 FR DUAL LUMEN 39 CM PICC IN THE RIGHT B RACHIOCEPHALIC VEIN. KUB X-Ray 01/07/20 05:44 IMPRESSION: Nonspecific nonobstructive bowel gas pattern. Assessment and Plan - Diagnosis (1) Acute pancreatitis Qualifiers: Pancreatitis type: other Acute pancreatitis complication: no infection or necrosis Qualified Code(s): K85.80 - Other acute pancreatitis without necrosis or infection Is this a current diagnosis for this admission?: Yes Plan: Severe hypertriglyceridemia-induced acute pancreatitis. Patient seems to be clinically improving. Her urine output is now very good. Hypocalcemia and metabolic acidosis seem to be resolving as well. These are good prognostic indicators. Patient tolerated soft bland diet this morning. We will continue to monitor patient closely. I have discontinued IV fluids. Discontinue IV morphine. Will manage pain with Tylenol, Toradol IV and Percocet as needed. (2) Hypertriglyceridemia Is this a current diagnosis for this admission?: Yes Plan: She has no idea of her family history because she is adopted. 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 This triglyceride was over 9800 on admission. It has improved to 477 today after being on an insulin drip for almost 4 days. I will discontinue insulin drip today. Check triglycerides in the morning. fenofibrate and omega-3 fatty acids (3) High anion gap metabolic acidosis Is this a current diagnosis for this admission?: Yes Plan: Anion gap has normalized and bicarbonate continues to improve now at 21. I will stop bicarbonate supplements and simply monitor BMP off all supplements. (4) New onset type 2 diabetes mellitus Is this a current diagnosis for this admission?: Yes Plan: Hemoglobin A1c of 8.9. I suspect type 2 diabetes mellitus from insulin resistance given patient's obesity and metabolic syndrome. Will check KHURRAM 65 in the morning. Given financial difficulties expressed by patient, I will place patient on metformin 500 twice daily and glipizide 5 mg twice daily. Monitor Accu-Cheks. Sliding scale insulin coverage. Insulin drip discontinued today. (5) Hypocalcemia Is this a current diagnosis for this admission?: Yes Plan: Secondary to fat saponification from pancreatitis. Hypocalcemia has resolved today as corrected calcium is 9.1. Patient has been receiving significant amount of calcium supplementation IV and p.o.. I will discontinue supplements and monitor patient's calcium trend down the pancreatitis is improved. (6) Sinus tachycardia Is this a current diagnosis for this admission?: Yes Plan: Had been having persistent sinus tachycardia often in the 130s to 140s. Pain has been addressed. Anxiety has been addressed. Not hypoxic. Tachycardia is likely secondary to concurrent illness and inflammatory state. However, she has also been having some runs of PVCs and as such patient is on Lopressor. Her episodes of consecutive PVCs often in 3 or 4s likely due to electrolyte abnormalities. Calcium has normalized, replete hypokalemia, replete for hypomagnesemia, replete hypophosphatemia. The patient is young, she has high risk factors for cardiomyopathy including obesity, DM, severe HLD and hypertriglyceridemia. I will check echo tomorrow. (7) Abdominal distention Is this a current diagnosis for this admission?: Yes Plan: Seems to be improving. Likely constipation which is resolving also complicated by third spacing from pancreatitis. KUB does not show any obstruction or ileus pattern. Ambulation encouraged. (8) Atelectasis Is this a current diagnosis for this admission?: Yes Plan: Incentive spirometer. Ambulation encouraged. (9) Lesion of liver greater than 1 cm in diameter Is this a current diagnosis for this admission?: Yes Plan: Ultrasound found incidental hypoechoic 5.1 cm lesion in the liver right lobe. Addendum was made to CT scan done on admission by radiologist stating that the area of 5.1 cm seen on ultrasound seems to have corresponded with the area of significant fatty infiltration/hepatic steatosis noted on CT and malignancy is very unlikely. We will forego further imaging at this time. Started on appropriate meds for FRENCH. (10) Anemia Qualifiers: Anemia type: unspecified type Qualified Code(s): D64.9 - Anemia, unspecified Is this a current diagnosis for this admission?: Yes Plan: She has no other evidence of bleeding besides just starting her menstrual period yesterday. May also be some dilution from IV fluids. I will continue to monitor CBC. Seems steady. (11) Hypercholesterolemia Is this a current diagnosis for this admission?: Yes Plan: Started on atorvastatin. LDL significantly elevated. - Time Time Spent with patient: Less than 15 minutes
[2020-01-09] MEDS: OXYCODONE-ACETAMINOPHEN 5-325 MG TABLET PO PRN ×2 (11:21→19:33)
[2020-01-09] MEDS: METFORMIN HCL 500 MG TABLET PO SCH ×2 (11:21→16:35)
[2020-01-09] MEDS: MAGNESIUM SULFATE/D5W 1 GM/100 ML RTUPB IV SCH ×3 (11:22→14:12)
[2020-01-09] MEDS: GLIPIZIDE 5 MG TABLET PO SCH ×2 (11:22→16:35)
[2020-01-09] MEDS: INSULIN LISPRO 100 UNIT/ML 3 ML VIAL SUBCUT SCH ×3 (11:23→23:09)
[2020-01-09 19:15] LABS: ALBUMIN 2.7 g/dL (3.5-5.0); ALKALINE PHOSPHATASE 199 U/L (38-126); ANION GAP 9 (5-19); ASPARTATE AMINO TRANSFERASE 300 U/L (14-36); BILIRUBIN,DIRECT 0.6 mg/dL (0.0-0.4); BILIRUBIN,TOTAL 1.2 mg/dL (0.2-1.3); BLOOD UREA NITROGEN 4 mg/dL (7-20); CALCIUM 7.8 mg/dL (8.4-10.2); CARBON DIOXIDE 19 mmol/L (22-30); CHLORIDE 103 mmol/L (98-107); GLUCOSE 167 mg/dL (75-110); PHOSPHORUS 1.7 mg/dL (2.5-4.5); POTASSIUM 4.1 mmol/L (3.6-5.0); TOTAL PROTEIN 5.4 g/dL (6.3-8.2)
[2020-01-09] MEDS: ATORVASTATIN CALCIUM 80 MG TABLET PO SCH (23:11)
[2020-01-10 06:03] LABS: HEMATOCRIT 34.8 % (36.0-47.0); HEMOGLOBIN 11.7 g/dL (12.0-15.5); MEAN CORPUSCULAR HEMOGLOBIN 29.8 pg (27.0-33.4); MEAN CORPUSCULAR HGB CONC 33.6 g/dL (32.0-36.0); MEAN CORPUSCULAR VOLUME 89 fl (80-97); PLATELET COUNT 330 10^3/uL (150-450); RED BLOOD COUNT 3.93 10^6/uL (3.72-5.28); RED CELL DISTRIBUTION WIDTH 16.5 % (11.5-14.0); WHITE BLOOD COUNT 11.1 10^3/uL (4.0-10.5)
[2020-01-10 06:30] LABS: ALBUMIN 2.4 g/dL (3.5-5.0); ALKALINE PHOSPHATASE 202 U/L (38-126); ANION GAP 9 (5-19); ASPARTATE AMINO TRANSFERASE 523 U/L (14-36); BILIRUBIN,DIRECT 0.7 mg/dL (0.0-0.4); BILIRUBIN,TOTAL 1.3 mg/dL (0.2-1.3); BLOOD UREA NITROGEN 8 mg/dL (7-20); CALCIUM 7.5 mg/dL (8.4-10.2); CARBON DIOXIDE 19 mmol/L (22-30); CHLORIDE 103 mmol/L (98-107); GLUCOSE 145 mg/dL (75-110); PHOSPHORUS 2.2 mg/dL (2.5-4.5); TOTAL PROTEIN 5.2 g/dL (6.3-8.2); TRIGLYCERIDES 507 mg/dL (<150)
[2020-01-10] MEDS: METOPROLOL TARTRATE 100 MG TABLET PO SCH ×3 (06:31→18:30)
[2020-01-10] MEDS: HEPARIN SOD (PORCINE) 5,000 UNIT/ML 1 ML VIAL SUBCUT SCH ×3 (06:31→21:25)
[2020-01-10] MEDS: INSULIN LISPRO 100 UNIT/ML 3 ML VIAL SUBCUT SCH ×4 (08:53→21:29)
[2020-01-10] MEDS: OXYCODONE-ACETAMINOPHEN 5-325 MG TABLET PO PRN ×3 (08:59→22:35)
[2020-01-10] MEDS: METFORMIN HCL 500 MG TABLET PO SCH ×2 (09:00→18:31)
[2020-01-10] MEDS: GLIPIZIDE 5 MG TABLET PO SCH ×2 (09:00→18:30)
[2020-01-10] MEDS ORDERED: POTASSIUM PHOS,M-BASIC-D-BASIC 30 MMOL in NORMAL SALINE 500 ML IV ONE (10:00)
[2020-01-10] MEDS: NORMAL SALINE 10 ML SDV (SCHEDULED) IV SCH ×2 (10:00→22:34)
[2020-01-10] MEDS: DULOXETINE HCL 30 MG CAPSULE.DR PO SCH (11:03)
[2020-01-10] MEDS: FENOFIBRATE NANOCRYSTALLIZED 145 MG TABLET PO SCH (11:03)
[2020-01-10] MEDS: PANTOPRAZOLE SODIUM 40 MG VIAL IV SCH ×2 (11:04→21:33)
[2020-01-10] MEDS: OMEGA-3 ACID ETHYL ESTERS 1 GM CAPSULE PO SCH (11:05)
--- NOTE | 2020-01-10 13:15 | PDOC PROGRESS REPORT ---
Subjective Progress Note for:: 01/10/20 Subjective:: Patient feels better today. She has had a bowel movement this morning which was decent sized. Still having some abdominal pain but is more controllable. She was able to eat adequately yesterday. She is asking if she will be able to go home today to take care of her dogs as her will be leaving town. I have encouraged patient to stay because today's the first day that she has not required excessive repletion of electrolytes and will still need to monitor her liver enzymes and electrolytes. Reason For Visit: ACUTE PANCREATITIS,ABDOMINAL PAIN,HYPERGLYCEMIA Physical Exam Vital Signs: Temp Pulse Resp BP Pulse Ox 97.9 F 103 H 14 99/59 L 97 01/10/20 07:42 01/10/20 07:52 01/10/20 07:52 01/10/20 07:42 01/10/20 07:52 Intake & Output 01/09/20 01/10/20 01/11/20 06:59 06:59 06:59 Intake Total 3358 2507 Output Total 6150 2125 Balance -2792 382 Weight 87 kg 84.8 kg General appearance: PRESENT: no acute distress, cooperative Neck exam: ABSENT: JVD Respiratory exam: PRESENT: clear to auscultation emil, symmetrical, unlabored. ABSENT: tachypnea, wheezes Cardiovascular exam: PRESENT: +S1, +S2, tachycardia. ABSENT: irregular rhythm GI/Abdominal exam: PRESENT: soft. ABSENT: rebound, rigid, tenderness Neurological exam: PRESENT: alert, awake, oriented to person, oriented to place, oriented to time Results Laboratory Results: 01/10/20 05:35 01/10/20 05:35 01/09/20 01/10/20 01/10/20 18:40 05:35 05:35 WBC 11.1 H RBC 3.93 Hgb 11.7 L Hct 34.8 L MCV 89 MCH 29.8 MCHC 33.6 RDW 16.5 H Plt Count 330 Sodium 131.2 L 130.6 L Potassium 4.1 4.0 Chloride 103 103 Carbon Dioxide 19 L 19 L Anion Gap 9 9 BUN 4 L 8 Creatinine 0.82 0.94 Est GFR ( Amer) > 60 > 60 Glucose 167 H 145 H Calcium 7.8 L 7.5 L Phosphorus 1.7 L 2.2 L Magnesium 2.5 H D 2.2 Total Bilirubin 1.2 1.3 AST 300 H 523 H Alkaline Phosphatase 199 H 202 H Total Protein 5.4 L 5.2 L Albumin 2.7 L 2.4 L Triglycerides 507 H 01/06/20 05:27 Creatine Kinase 300 H Impressions: Abdomen Ultrasound 01/04/20 00:00 IMPRESSION: 1. 5.1 cm hypoechoic mass of the right hepatic lobe. There is minimal vascularity at its periphery. Differential diagnosis includes neoplasm. Recommend contrast CT or MRI of the abdomen, liver protocol. 2. Severe hepatic steatosis. 3. Gallbladder sludge. Abdomen/Pelvis CT 01/04/20 00:00 IMPRESSION: Acute pancreatitis without evidence of pseudocyst. Chest X-Ray 01/07/20 00:00 IMPRESSION: Ill-defined airspace opacity in the right lung base. In the setting of low lung volumes, this may represent atelectasis. However, an infectious process such as pneumonia or a viral process is difficult to exclude. If clinically feasible, consider an upright PA and lateral chest x-ray for further characterization. PICC Line Insertion 01/07/20 00:00 IMPRESSION: SUCCESSFUL PLACEMENT OF A 5 FR DUAL LUMEN 39 CM PICC IN THE RIGHT BRACHIOCEPHALIC VEIN. KUB X-Ray 01/07/20 05:44 IMPRESSION: Nonspecific nonobstructive bowel gas pattern. Assessment and Plan - Diagnosis (1) Acute pancreatitis Qualifiers: Pancreatitis type: other Acute pancreatitis complication: no infection or necrosis Qualified Code(s): K85.80 - Other acute pancreatitis without necrosis or infection Is this a current diagnosis for this admission?: Yes Plan: Severe hypertriglyceridemia-induced acute pancreatitis. Now clinically improving after a severe bout. Her urine output is now persistently very good. Hypocalcemia and metabolic acidosis seem to be resolving as well. These are good prognostic indicators. Patient is tolerating soft bland diet. Will manage pain with Tylenol, Toradol IV and Percocet for breakthrough. Off IV fluids and IV morphine. (2) Hypertriglyceridemia Is this a current diagnosis for this admission?: Yes Plan: Likely familial. Triglyceride was over 9800 on admission. It has improved to 477 yesterday after being on an insulin drip for 3.5 days. Insulin drip discontinued yesterday. Triglycerides is 507 this morning. Will check triglycerides in the a.m. Hopefully, triglycerides can be controlled now with fenofibrate and omega-3 fatty acids. If triglycerides start to trend back up significantly as she is now off insulin drip, the next alternative will be to transfer for plasmapheresis. (3) High anion gap metabolic acidosis Is this a current diagnosis for this admission?: Yes Plan: High anion gap was due to ketosis from hypertriglyceridemia not DKA but anion gap has normalized and bicarbonate continues to improve now at 19. I will stop bicarbonate supplements and simply monitor BMP off all supplements. (4) New onset type 2 diabetes mellitus Is this a current diagnosis for this admission?: Yes Plan: Hemoglobin A1c of 8.9. I suspect type 2 diabetes mellitus from insulin resistance given patient's obesity and metabolic syndrome. Will check KHURRAM 65. Given financial difficulties expressed by patient, I placed patient on metformin 500 BID and glipizide 5 mg BID. Monitor Accu-Cheks. ISS. (5) Hypocalcemia Is this a current diagnosis for this admission?: Yes Plan: Secondary to fat saponification from pancreatitis. She was initially requiring large amounts of IV and p.o. calcium supplementation daily. However hypocalcemia has remained resolved at this point's corrected calcium today is 8.8 and has been off any calcium supplementation for the past 24 hours. (6) Sinus tachycardia Is this a current diagnosis for this admission?: Yes Plan: Persistently sinus tachycardia in the 130s to 140s early in hospitalization. Potential etiologies were addressed such as pain, anxiety, hypoxia but tachycardia persisted. Patient was also having some runs of PVCs [NsVT] and as such patient is on Lopressor. I suspected her PVCs were due to electrolyte abnormalities including hypocalcemia hypokalemia hypomagnesemia and hypophosphatemia which have been addressed. I reviewed telemetry today PVCs seem to have resolved. Though the patient is young, she has high risk factors for cardiovascular disease/cardiomyopathy including obesity, DM, severe HLD and hypertrig lyceridemia. Echo is pending. (7) Atelectasis Is this a current diagnosis for this admission?: Yes Plan: Incentive spirometer. Ambulation encouraged. Seen by PT. (8) Lesion of liver greater than 1 cm in diameter Is this a current diagnosis for this admission?: Yes Plan: Ultrasound found incidental hypoechoic 5.1 cm lesion in the liver right lobe. Addendum was made to CT scan done on admission by radiologist stating that the area of 5.1 cm seen on ultrasound seems to have corresponded with the area of significant fatty infiltration/hepatic steatosis noted on CT and malignancy is very unlikely. We will forego further imaging at this time. Started on appropriate meds for FRENCH. Outpatient follow-up. (9) Anemia Qualifiers: Anemia type: unspecified type Qualified Code(s): D64.9 - Anemia, unspecified Is this a current diagnosis for this admission?: Yes Plan: Hemoglobin is now steady. No evidence of bleeding besides starting her menstrual period. (10) Hypercholesterolemia Is this a current diagnosis for this admission?: Yes Plan: Started on atorvastatin. LDL was 190. I have reduced atorvastatin dose today to 40 mg due to worsening transaminitis. Follow-up enzymes in a.m.
[2020-01-10] MEDS ORDERED: METOPROLOL TARTRATE PF/INJ 5 MG/5 ML SDV IV PRN (20:54)
[2020-01-10] MEDS ORDERED: DILTIAZEM HCL 60 MG TABLET PO SCH (21:15)
[2020-01-10] MEDS ORDERED: ATORVASTATIN CALCIUM 80 MG TABLET PO SCH (22:00)
[2020-01-10] MEDS: ATORVASTATIN CALCIUM 40 MG TABLET PO SCH (22:33)
[2020-01-10] MEDS: DILTIAZEM HCL 60 MG TABLET PO SCH (22:33)
[2020-01-11] MEDS: METOPROLOL TARTRATE 100 MG TABLET PO SCH ×5 (01:01→23:49)
[2020-01-11] MEDS: DILTIAZEM HCL 60 MG TABLET PO SCH ×2 (03:41→16:00)
[2020-01-11] MEDS: OXYCODONE-ACETAMINOPHEN 5-325 MG TABLET PO PRN ×3 (04:18→20:07)
[2020-01-11] MEDS: HEPARIN SOD (PORCINE) 5,000 UNIT/ML 1 ML VIAL SUBCUT SCH ×2 (06:09→16:07)
[2020-01-11 07:07] LABS: HEMATOCRIT 33.5 % (36.0-47.0); HEMOGLOBIN 11.1 g/dL (12.0-15.5); MEAN CORPUSCULAR HEMOGLOBIN 29.4 pg (27.0-33.4); MEAN CORPUSCULAR HGB CONC 33.1 g/dL (32.0-36.0); MEAN CORPUSCULAR VOLUME 89 fl (80-97); PLATELET COUNT 264 10^3/uL (150-450); RED BLOOD COUNT 3.77 10^6/uL (3.72-5.28); RED CELL DISTRIBUTION WIDTH 16.7 % (11.5-14.0); WHITE BLOOD COUNT 14.4 10^3/uL (4.0-10.5)
[2020-01-11 07:39] LABS: ALBUMIN 2.5 g/dL (3.5-5.0); ALKALINE PHOSPHATASE 320 U/L (38-126); ANION GAP 10 (5-19); BILIRUBIN,DIRECT 1.2 mg/dL (0.0-0.4); BILIRUBIN,TOTAL 1.7 mg/dL (0.2-1.3); BLOOD UREA NITROGEN 18 mg/dL (7-20); CALCIUM 7.4 mg/dL (8.4-10.2); CARBON DIOXIDE 19 mmol/L (22-30); CHLORIDE 104 mmol/L (98-107); GLUCOSE 136 mg/dL (75-110); PHOSPHORUS 4.5 mg/dL (2.5-4.5); POTASSIUM 3.9 mmol/L (3.6-5.0); TOTAL PROTEIN 5.5 g/dL (6.3-8.2)
[2020-01-11 07:57] LABS: ASPARTATE AMINO TRANSFERASE 1178 U/L (14-36); TRIGLYCERIDES 635 mg/dL (<150)
[2020-01-11] MEDS: INSULIN LISPRO 100 UNIT/ML 3 ML VIAL SUBCUT SCH ×3 (08:00→21:57)
[2020-01-11 08:15] LABS: INTERNATIONAL RATION (INR) 1.66; PROTHROMBIN TIME 19.8 SEC (11.4-15.4)
[2020-01-11 08:17] LABS: PARTIAL THROMBOPLASTIN TIME 113.4 SEC (23.5-35.8)
[2020-01-11] MEDS ORDERED: ACETAMINOPHEN 325 MG TABLET PO PRN (08:21)
--- NOTE | 2020-01-11 10:25 | PDOC CONSULTATION ---
Consultation Consult Date: 01/11/20 Attending physician:: SAWYER CARLTON Provider Consulted: APOLINAR MORRISSEY Consult reason:: Sinus tachycardia History of Present Illness Admission Date/PCP: 01/04/20 22:52 History of Present Illness: PAVITHRA BOSS is a 29 year old female with history of hypertension, hyperlipidemia, hypertriglyceridemia, type 2 diabetes, depression, anxiety, lifelong non-smoker and unknown family history for premature coronary artery disease as she is adopted who is consulted to our service for evaluation of sinus tachycardia. The patient was admitted on 01/04/2020 with acute pancreatitis suspected to be secondary to her severe hypertriglyceridemia. Review of her hospital stay demonstrates that her tachycardia has responded nicely to pain control as well as control of her anxiety. She still gets tachycardic when walking around. Of note, upon further questioning, the patient states that she had been diagnosed with sinus tachycardia when she was in 11th grade when she noticed palpitations and racing heart however no specific diagnos is was given at that time and no treatment was provided per her report. She specifically denies chest pain, shortness of breath, syncope and presyncope however she continues to have abdominal pain that she rates at 2 out of 10. Her telemetry demonstrates normal sinus rhythm with episodes of sinus tachycardia, PVCs and 1 run of PVCs lasting only 3 beats. Although her echocardiogram has not been officially read, I did review those images which demonstrated normal systolic function without any significant valvular heart disease. Physical exam: GENERAL: Pleasant and conversational. Oriented x3 with normal mood. Not in acute distress. Well groomed and well developed. HEENT: Normocephalic, atraumatic. Pupils equal. Sclerae anicteric. Oropharynx moist. NECK: No JVD. No carotid bruits. LUNGS: Clear to auscultation bilaterally. Normal respiratory effort without the use of accessory muscles or intercostal retractions. CARDIOVASCULAR: Regular rate and rhythm, normal S1 and S2 without murmurs, rubs, or gallops. PMI not displaced. ABDOMEN: Protuberant, mild tenderness to palpation. No bruit. EXTREMITIES: No edema, no cyanosis, no clubbing. +2 pulses femoral and pedal pulses bilaterally. SKIN: No lesions or rashes. MUSCULOSKELETAL: No chest tenderness to palpation. NEUROLOGIC: Nonfocal. No gross sensory or motor deficits bilateral upper or lower extremities. Past Medical History Cardiac Medical History: Denies: Coronary Artery Disease, DVT, Hyperlipidema, Hypertension Pulmonary Medical History: Denies: Asthma, Chronic Obstructive Pulmonary Disease (COPD) EENT Medical History: Denies: Cataracts, Ears - Hearing aids Neurological Medical History: Denies: Multiple Sclerosis, Seizures Endocrine Medical History: Denies: Diabetes Mellitus Type 1, Diabetes Mellitus Type 2, Hyperthyroidism, Hypothyroidism Renal/ Medical History: Denies: Chronic Kidney Disease, Nephrolithiasis Malignancy Medical History: Reports: None GI Medical History: Reports: Peptic Ulcer Disease Denies: Cirrhosis, Crohn's Disease, Gastroesophageal Reflux Disease, Hepatitis, Ulcerative Colitis Musculoskeltal Medical History: Denies: Arthritis, Gout Skin Medical History: Denies: Eczema, Psoriasis Psychiatric Medical History: Denies: Alcohol Dependency, Depression, Substance Abuse, Tobacco Dependency Traumatic Medical History: Reports: None Hematology: Denies: Anemia, Bleeding Tendencies Infectious Medical History: Reports: None Past Surgical History Past Surgical History: Reports: None, Other - Jaw surgery for overbite Social History Lives with: Spouse/Significant other Smoking Status: Never Smoker Electronic Cigarette use?: No Frequency of Alcohol Use: Occasional Hx Recreational Drug Use: No Drugs: None Hx Prescription Drug Abuse: No - Advance Directive Resuscitation Status: Full Code Family History Family History: denies: CAD, DM, Hypertension, Malignancy Parental Family History Reviewed: Yes Children Family History Reviewed: Yes Sibling(s) Family History Reviewed.: Yes Medication/Allergy Home Medications: Dextroamphetamine/Amphetamine [Dextroamp-Amphetamin 20 mg Tab] 20 mg PO TIDP PRN 01/05/20 Dicyclomine HCl [Bentyl 20 mg Tablet] 20 mg PO QIDP PRN 01/05/20 Duloxetine HCl [Cymbalta] 60 mg PO DAILY 01/05/20 Ondansetron [Zofran Odt 4 mg Tablet] 4 mg PO Q6HP PRN 01/05/20 Quetiapine Fumarate [Seroquel 25 mg Tablet] 25 mg PO HSP PRN 01/05/20 l-Norgest/E.estradiol-E.estrad [Levonor-E Estrad 0.1-0.02-0.01] 1 tab PO DAILY 01/05/20 Allergies/Adverse Reactions: acetaminophen [From Vicodin] Allergy (Intermediate, Verified 01/05/20 08:46) Hives hydrocodone [From Vicodin] Allergy (Intermediate, Verified 01/05/20 08:46) Hives Physical Exam Vital Signs: Temp Pulse Resp BP Pulse Ox 98.0 F 108 H 22 H 91/62 L 96 01/11/20 07:21 01/11/20 07:21 01/11/20 07:21 01/11/20 07:21 01/11/20 07:21 Intake & Output 01/10/20 01/11/20 01/12/20 06:59 06:59 06:59 Intake Total 2507 470 Output Total 2125 300 Balance 382 170 Weight 84.8 kg 84.5 kg Results Laboratory Results: 01/11/20 06:00 01/11/20 06:06 01/11/20 01/11/20 06:00 06:06 WBC 14.4 H RBC 3.77 Hgb 11.1 L Hct 33.5 L MCV 89 MCH 29.4 MCHC 33.1 RDW 16.7 H Plt Count 264 Sodium 132.8 L Potassium 3.9 Chloride 104 Carbon Dioxide 19 L Anion Gap 10 BUN 18 Creatinine 2.02 H Est GFR ( Amer) 35 L Glucose 136 H Calcium 7.4 L Phosphorus 4.5 Magnesium 2.4 H Total Bilirubin 1.7 H AST 1178 H Alkaline Phosphatase 320 H Total Protein 5.5 L Albumin 2.5 L Triglycerides 635 H 01/06/20 05:27 Creatine Kinase 300 H Impressions: Abdomen Ultrasound 01/04/20 00:00 IMPRESSION: 1. 5.1 cm hypoechoic mass of the right hepatic lobe. There is minimal vascularity at its periphery. Differential diagnosis includes neoplasm. Recommend contrast CT or MRI of the abdomen, liver protocol. 2. Severe hepatic steatosis. 3. Gallbladder sludge. Abdomen/Pelvis CT 01/04/20 00:00 IMPRESSION: Acute pancreatitis without evidence of pseudocyst. Chest X-Ray 01/07/20 00:00 IMPRESSION: Ill-defined airspace opacity in the right lung base. In the setting of low lung volumes, this may represent atelectasis. However, an infectious process such as pneumonia or a viral process is difficult to exclude. If clinically feasible, consider an upright PA and lateral chest x-ray for further characterization. PICC Line Insertion 01/07/20 00:00 IMPRESSION: SUCCESSFUL PLACEMENT OF A 5 FR DUAL LUMEN 39 CM PICC IN THE RIGHT BRACHIOCEPHALIC VEIN. KUB X-Ray 01/07/20 05:44 IMPRESSION: Nonspecific nonobstructive bowel gas pattern. 01/11/20 06:00 01/11/20 06:06 MCV 89 fl (80-97) 01/11/20 06:00 MCH 29.4 pg (27.0-33.4) 01/11/20 06:00 MCHC 33.1 g/dL (32.0-36.0) 01/11/20 06:00 RDW 16.7 % (11.5-14.0) H 01/11/20 06:00 Seg Neutrophils % 65.6 % (42-78) 01/09/20 05:22 Carbonic Acid 0.62 mmol/L (1.05-1.35) L 01/07/20 08:48 HCO3/H2CO3 Ratio 18:1 01/07/20 08:48 ABG pH 7.35 (7.35-7.45) 01/07/20 08:48 ABG pCO2 20.5 mmHg (35-45) L* 01/07/20 08:48 ABG pO2 81.8 mmHg (80-100) 01/07/20 08:48 ABG HCO3 11.2 mmol/L (20-24) L 01/07/20 08:48 ABG O2 Saturation 95.9 % (94-98) 01/07/20 08:48 ABG Base Excess -12.0 mmol/L 01/07/20 08:48 VBG pH 7.35 (7.30-7.42) 01/04/20 21:47 VBG pCO2 27.3 mmHg (35-63) L 01/04/20 21:47 VBG HCO3 14.8 mmol/L (20-32) L 01/04/20 21:47 VBG Base Excess -9.1 mmol/L 01/04/20 21:47 FiO2 3L 01/07/20 08:48 Chloride 104 mmol/L (98-107) 01/11/20 06:06 Carbon Dioxide 19 mmol/L (22-30) L 01/11/20 06:06 Anion Gap 10 (5-19) 01/11/20 06:06 Est GFR ( Amer) 35 (>60) L 01/11/20 06:06 Glucose 136 mg/dL (75-110) H 01/11/20 06:06 Lactic Acid 1.3 mmol/L (0.7-2.1) 01/07/20 12:50 Calcium 7.4 mg/dL (8.4-10.2) L 01/11/20 06:06 Ionized Calcium [place] 1.07 mmol/L (1.14-1.30) L 01/09/20 05:22 Phosphorus 4.5 mg/dL (2.5-4.5) 01/11/20 06:06 Magnesium 2.4 mg/dL (1.6-2.3) H 01/11/20 06:06 Total Bilirubin 1.7 mg/dL (0.2-1.3) H 01/11/20 06:06 AST 1178 U/L (14-36) H 01/11/20 06:06 Alkaline Phosphatase 320 U/L (38-126) H 01/11/20 06:06 Total Protein 5.5 g/dL (6.3-8.2) L 01/11/20 06:06 Albumin 2.5 g/dL (3.5-5.0) L 01/11/20 06:06 Triglycerides 635 mg/dL (<150) H 01/11/20 06:06 Cholesterol 834.75 mg/dL (0-200) H 01/05/20 05:46 LDL Cholesterol Direct 190 mg/dL (<100) H 01/05/20 05:46 HDL Cholesterol 23 mg/dL (>40) L 01/05/20 05:46 Amylase 259 U/L (30-110) H 01/05/20 05:46 Lipase 974.7 U/L (23-300) H 01/07/20 06:24 TSH 1.60 uIU/mL (0.47-4.68) 01/05/20 05:46 Free T3 pg/mL 2.51 pg/mL (2.77-5.27) L 01/05/20 05:46 Serum HCG, Qual NEGATIVE (NEGATIVE) 01/04/20 20:41 Urine Color YELLOW 01/07/20 08:30 Urine Appearance SLIGHTLY-CLOUDY 01/07/20 08:30 Urine pH 5.0 (5.0-9.0) 01/07/20 08:30 Ur Specific [place] 1.020 01/07/20 08:30 Urine Protein 30 mg/dL (NEGATIVE) H 01/07/20 08:30 Urine Glucose (UA) >=500 mg/dL (NEGATIVE) H 01/07/20 08:30 Urine Ketones 20 mg/dL (NEGATIVE) H 01/07/20 08:30 Urine Blood LARGE (NEGATIVE) H 01/07/20 08:30 Urine Nitrite NEGATIVE (NEGATIVE) 01/07/20 08:30 Ur Leukocyte Esterase NEGATIVE (NEGATIVE) 01/07/20 08:30 Urine WBC (Auto) 2 /HPF 01/07/20 08:30 Urine RBC (Auto) 129 /HPF 01/07/20 08:30 01/06/20 05:27 Creatine Kinase 300 H Current Medication List Generic Name Dose Route Start Last Admin Trade Name Freq PRN Reason Stop Dose Admin Acetaminophen 650 mg 01/11/20 08:21 Tylenol 325 Mg Tablet PO 02/08/20 10:26 Q4HP PRN FOR PAIN SCALE 1-3 Al Hydrox/Mg Hydrox/Simethicone 30 ml 01/07/20 18:30 Maalox Plus Susp 30 Udcup PO 02/03/20 22:54 Q6HP PRN HEARTBURN Albuterol/Ipratropium 3 ml 01/06/20 23:09 01/09/20 07:48 Duoneb 3 Ml Ampul NEB 02/05/20 23:08 3 ml RTQ4HP PRN Administration WHEEZING Atorvastatin Calcium 40 mg 01/10/20 22:00 01/10/20 22:33 Lipitor 40 Mg Tablet PO 02/09/20 21:59 40 mg QHS LISA Administration Dextrose 12.5 gm 01/04/20 23:03 01/08/20 03:22 Dextrose Inj 50% Syringe (25 Gm/50 Ml) IV 02/03/20 23:02 12.5 gm PRN PRN Administration FOR BG 50-69 IN ALERT PATIENT Protocol Dextrose 25 gm 01/04/20 23:03 Dextrose Inj 50% Syringe (25 Gm/50 Ml) IV 02/03/20 23:02 PRN PRN PER PROTOCOL Protocol Dicyclomine HCl 20 mg 01/07/20 18:30 01/10/20 21:27 Bentyl 20 Mg Tablet PO 02/04/20 14:43 20 mg QIDP PRN Administration FOR STOMACH CRAMPS Diltiazem HCl 60 mg 01/10/20 22:00 01/11/20 03:41 Cardizem 60 Mg Tablet PO 02/09/20 21:59 Not Given Q6A LISA Duloxetine HCl 60 mg 01/06/20 10:00 01/10/20 11:03 Cymbalta 30 Mg Capsule. PO 02/05/20 09:59 60 mg DAILY LISA Administration Fenofibrate 145 mg 01/08/20 10:00 01/10/20 11:03 Tricor 145 Mg Tablet PO 02/05/20 09:59 145 mg DAILY LISA Administration Glipizide 5 mg 01/09/20 11:00 01/10/20 18:30 Glucotrol 5 Mg Tablet PO 02/08/20 10:59 5 mg BIDACBS LISA Administration Glucagon 1 mg 01/04/20 23:03 Glucagen Inj 1 Mg Vial IM 02/03/20 23:02 PRN PRN Evaluate for BG < 70 Protocol Glucose 15 gm 01/04/20 23:03 Glutose 40% Gel 15 Gm Tube PO 02/03/20 23:02 PRN PRN FOR BG 50-69 IN ALERT PATIENT Protocol Glucose 30 gm 01/04/20 23:03 Glutose 40% Gel 15 Gm Tube PO 02/03/20 23:02 PRN PRN FOR BG < 50 IN ALERT PATIENT Protocol Guaifenesin 200 mg 01/07/20 18:30 Robitussin Syrup 200 Mg/10 Ml Ud Cup PO 02/03/20 22:59 Q4HP PRN COUGH Heparin Sodium (Porcine) 5,000 unit 01/05/20 06:00 01/11/20 06:09 Heparin Inj 5,000 Units/Ml 1 Ml Vial SUBCUT 02/04/20 05:59 5,000 unit Q8 LISA Administration Heparin Sodium (Porcine) 30 unit 01/07/20 22:00 01/10/20 21:28 Heparin Flush 10 Unit/Ml 5 Ml Disp.Syrg IV 02/06/20 21:59 30 unit Q12 LISA Administration Heparin Sodium (Porcine) 30 unit 01/07/20 17:00 01/10/20 21:28 Heparin Flush 10 Unit/Ml 5 Ml Disp.Syrg IV 02/06/20 16:59 30 unit .AFTER EACH USE PRN Administration Hydralazine HCl 20 mg 01/04/20 23:00 01/07/20 03:53 Apresoline Inj/Pf 20 Mg/1 Ml Sdv IV 02/03/20 22:59 20 mg Q4HP PRN Administration Give For Sbp > 160 / Dbp > 100 Insulin Human Lispro 0 - 12 unit 01/09/20 11:00 01/10/20 21:29 Humalog Insulin 100 Unit/1 Ml 3 Ml Vial SUBCUT 02/08/20 10:59 2 unit ACHS LISA Administration Protocol Magnesium Hydroxide 30 ml 01/07/20 18:00 Milk Of Magnesia 30 Ml Udcup PO 02/03/20 22:54 HSP PRN FOR CONSTIPATION Metformin HCl 500 mg 01/09/20 11:00 01/10/20 18:31 Glucophage 500 Mg Tablet PO 02/08/20 10:59 500 mg BIDACBS LISA Administration Metoprolol Tartrate 5 mg 01/10/20 20:54 Lopressor Inj/Pf 5 Mg/5 Ml Sdv IV 02/09/20 20:53 Q6HP PRN GIVE FOR HR > [] Metoprolol Tartrate 50 mg 01/11/20 00:00 01/11/20 06:08 Lopressor 100 Mg Tablet PO 02/10/20 00:00 50 mg Q6 LISA Administration Dckzc-[id number] Ethyl Esters 1 gm 01/10/20 10:00 01/10/20 11:05 Lovaza 1 Gm Capsule PO 02/09/20 09:59 1 gm DAILY LISA Administration Ondansetron HCl 4 mg 01/05/20 15:21 Zofran Inj/Pf 4 Mg/2 Ml Sdv IV 02/04/20 15:20 Q6HP PRN FOR NAUSEA/VOMITING Oxycodone/Acetaminophen 1 tab 01/09/20 10:21 01/11/20 04:18 Percocet 5-325 Mg Tablet PO 01/16/20 10:17 1 tab Q4HP PRN Administration FOR BREAKTHROUGH PAIN Pantoprazole Sodium 40 mg 01/04/20 23:00 01/10/20 21:33 Protonix Iv Inj 40 Mg Vial IV 01/11/20 22:59 40 mg Q12 LISA Administration Promethazine HCl 12.5 mg 01/06/20 08:30 Phenergan Inj 25 Mg/1 Ml Vial IV 02/03/20 22:54 Q4HP PRN FOR NAUSEA/VOMITING Sodium Chloride 2.5 ml 01/05/20 06:00 01/11/20 06:09 Saline Flush 2.5 Ml Monoject Prefil Syrin IV 02/04/20 05:59 2.5 ml Q8 LISA Administration Sodium Chloride 10 ml 01/07/20 22:00 01/10/20 22:34 Nacl 0.9% Inj/Pf 10 Ml Sdv IV 02/06/20 21:59 10 ml Q12 LISA Administration Sodium Chloride 10 ml 01/07/20 17:00 01/07/20 22:04 Nacl 0.9% Inj/Pf 10 Ml Sdv IV 02/06/20 16:59 10 ml .AFTER EACH USE PRN Administration Discontinued Medications Generic Name Dose Route Start Last Admin Trade Name Freq PRN Reason Stop Dose Admin Acetaminophen 650 mg 01/09/20 10:27 Tylenol 325 Mg Tablet PO 02/08/20 10:26 Q4HP PRN FOR PAIN SCALE 1-3 Al Hydrox/Mg Hydrox/Simethicone 30 ml 01/04/20 22:55 Maalox Plus Susp 30 Udcup PO 02/03/20 22:54 Q6HP PRN HEARTBURN Al Hydrox/Mg Hydrox/Simethicone 30 ml 01/07/20 06:00 Maalox Plus Susp 30 Udcup NG 02/03/20 22:54 Q6HP PRN HEARTBURN Atorvastatin Calcium 80 mg 01/05/20 22:00 01/06/20 22:28 Lipitor 80 Mg Tablet PO 02/04/20 21:59 80 mg QHS LISA Administration Atorvastatin Calcium 80 mg 01/07/20 22:00 Lipitor 80 Mg Tablet NG 02/04/20 21:59 QHS LISA Atorvastatin Calcium 80 mg 01/07/20 22:00 01/09/20 23:11 Lipitor 80 Mg Tablet PO 02/04/20 21:59 80 mg QHS LISA Administration Bisacodyl 10 mg 01/07/20 14:30 01/07/20 16:03 Dulcolax 5 Mg Tablet PO 01/07/20 14:31 Not Given NOW ONE Calcium Carbonate 1,200 mg 01/05/20 19:15 01/05/20 20:57 Caltrate 600 Mg Tablet PO 01/05/20 19:16 1,200 mg NOW ONE Administration Calcium Carbonate 1,200 mg 01/06/20 18:00 01/06/20 17:17 Caltrate 600 Mg Tablet PO 02/05/20 17:59 1,200 mg BID LISA Administration Calcium Carbonate 1,200 mg 01/07/20 10:00 01/07/20 17:41 Caltrate 600 Mg Tablet NG 02/05/20 17:59 1,200 mg BID LISA Administration Calcium Carbonate 1,200 mg 01/08/20 10:00 01/08/20 17:28 Caltrate 600 Mg Tablet PO 02/05/20 17:59 1,200 mg BID LISA Administration Calcium Gluconate 2,000 mg 01/05/20 18:40 01/05/20 23:03 Calcium Gluconate Inj 1000 Mg/10 Ml IV 01/05/20 18:41 Not Given NOW ONE Calcium Gluconate 1,000 mg 01/08/20 15:00 01/08/20 15:39 Calcium Gluconate Inj 1000 Mg/10 Ml IV 01/08/20 15:01 1,000 mg NOW ONE Administration Calcium Gluconate 2,000 mg 01/08/20 18:49 01/08/20 19:51 Calcium Gluconate Inj 1000 Mg/10 Ml IV 01/08/20 18:50 2,000 mg NOW ONE Administration Diazepam 5 mg 01/07/20 00:40 01/07/20 14:40 Valium Inj 10 Mg/2 Ml Disp.Syrin IV 01/14/20 00:39 5 mg Q4HP PRN Administration ANXIETY, RESTLESSNESS Diazepam Confirm 01/07/20 10:13 01/07/20 21:49 Valium 5 Mg Tablet Administered 01/07/20 10:14 Not Given Dose 5 mg .ROUTE .STK-MED ONE Dicyclomine HCl 20 mg 01/05/20 14:44 Bentyl 20 Mg Tablet PO 02/04/20 14:43 QIDP PRN FOR STOMACH CRAMPS Dicyclomine HCl 20 mg 01/07/20 06:00 Bentyl 20 Mg Tablet NG 02/04/20 14:43 QIDP PRN FOR STOMACH CRAMPS Docusate Sodium 100 mg 01/05/20 10:00 01/06/20 17:17 Colace 100 Mg Capsule PO 02/04/20 09:59 Not Given BID LISA Fenofibrate 145 mg 01/06/20 10:00 01/06/20 11:49 Tricor 145 Mg Tablet PO 02/05/20 09:59 145 mg DAILY LISA Administration Fenofibrate 145 mg 01/07/20 10:00 01/07/20 11:57 Tricor 145 Mg Tablet NG 02/05/20 09:59 145 mg DAILY LISA Administration Guaifenesin 200 mg 01/04/20 23:00 Robitussin Syrup 200 Mg/10 Ml Ud Cup PO 02/03/20 22:59 Q4HP PRN COUGH Guaifenesin 200 mg 01/07/20 06:00 Robitussin Syrup 200 Mg/10 Ml Ud Cup NG 02/03/20 22:59 Q4HP PRN COUGH Heparin Sodium (Porcine) Confirm 01/07/20 08:44 01/07/20 12:16 Heparin Flush 10 Unit/Ml 5 Ml Disp.Syrg Administered 01/07/20 08:45 Not Given Dose 50 unit IV .STK-MED ONE Hydromorphone HCl 2 mg 01/05/20 16:01 01/05/20 17:01 Dilaudid Inj/Pf 2 Mg/Ml Ampule IV 01/12/20 16:00 2 mg Q3HP PRN Administration FOR PAIN SCALE 4-5 Lactated Ringer's 1,000 mls @ 0 mls/hr 01/04/20 20:14 01/04/20 22:56 Lactated Ringers 1000 Ml Iv Soln IV 01/04/20 20:15 Infused BOLUS ONE Infusion Wide Open Potassium Chloride/Sodium Chloride 1,000 mls @ 500 mls/hr 01/04/20 22:01 01/04/20 22:31 Nacl 0.9% 1000 Ml/Kcl 20 Meq Premix Bag IV 01/05/20 00:00 500 mls/hr NOW ONE Administration Lactated Ringer's 1,000 mls @ 167 mls/hr 01/04/20 22:55 Lactated Ringers 1000 Ml Iv Soln IV 02/03/20 22:54 CONTINUOUS PRN THIS MED IS NOT "PRN" Sodium Bicarbonate 150 meq/ 1,000 mls @ 500 mls/hr 01/04/20 23:00 Dextrose IV 02/03/20 22:59 CONTINUOUS PRN THIS MED IS NOT "PRN" Sodium Bicarbonate 150 meq/ 1,000 mls @ 333 mls/hr 01/04/20 23:04 01/05/20 20:41 Dextrose IV 02/03/20 22:59 Infused CONTINUOUS PRN Infusion THIS MED IS NOT "PRN" Insulin Human Regular 100 unit 101 mls @ 0 mls/hr 01/05/20 09:51 01/09/20 19 :01 / Sodium Chloride IV 02/04/20 09:50 Infused CONTINUOUS PRN Titration THIS MED IS NOT "PRN" Protocol Titrate Potassium Chloride/Sodium Chloride 1,000 mls @ 250 mls/hr 01/05/20 10:06 01/05/20 20:41 Nacl 0.9% 1000 Ml/Kcl 20 Meq Premix Bag IV 02/04/20 10:05 Infused CONTINUOUS PRN Infusion THIS MED IS NOT "PRN" Sodium Chloride 500 mls @ 0 mls/hr 01/05/20 17:00 01/05/20 20:42 Nacl 0.9% 500 Ml Iv Soln IV 01/05/20 17:01 Infused BOLUS ONE Infusion Wide Open Potassium Chloride 20 meq/ 1,010 mls @ 200 mls/hr 01/05/20 16:46 Dextrose/Sodium Chloride IV 02/04/20 16:45 CONTINUOUS PRN THIS MED IS NOT "PRN" Potassium Chloride/Dextrose/Sod Cl 20 meq in 1,000 mls @ 200 mls/hr 01/05/20 16:49 01/06/20 21:03 D5ns 1000 Ml/Kcl 20 Meq Premix Bag IV 02/04/20 16:48 200 mls/hr CONTINUOUS PRN 200 mls/hr THIS MED IS NOT "PRN" Administration Calcium Gluconate 1 gm in 50 mls @ 50 mls/hr 01/05/20 19:15 01/05/20 22:43 Calcium Gluconate Rtu 1 Gm/50 Ml IV 01/05/20 21:14 50 mls/hr Q1H LISA Administration Magnesium Sulfate/Dextrose 1 gm in 100 mls @ 100 mls/hr 01/05/20 21:00 01/06/20 03:59 Magnesium Sulfate Rtu-D5w 1 Gm/100 Ml Premix IV 01/05/20 22:59 Infused Q1H LISA Infusion Magnesium Sulfate/Dextrose Confirm 01/06/20 02:54 01/06/20 02:58 Magnesium Sulfate Rtu-D5w 1 Gm/100 Ml Premix Administered 01/06/20 02:55 Not Given Dose 1 gm in 100 mls @ ud IV .STK-MED ONE Calcium Gluconate 1 gm in 50 mls @ 50 mls/hr 01/06/20 08:15 01/06/20 10:57 Calcium Gluconate Rtu 1 Gm/50 Ml IV 01/06/20 10:14 50 mls/hr Q1H LISA Administration Albumin Human 12.5 gm in 50 mls @ 50 mls/hr 01/06/20 10:57 01/06/20 17:10 Albuminar-25 Rtu Inj 12.5 Gm/50 Ml Premix IV 01/06/20 13:56 Infused Q1H LISA Infusion Calcium Gluconate 1 gm in 50 mls @ 50 mls/hr 01/06/20 16:15 01/06/20 18:18 Calcium Gluconate Rtu 1 Gm/50 Ml IV 01/06/20 18:14 50 mls/hr Q1H LISA Administration Potassium Chloride/Dextrose/Sod Cl 20 meq in 1,000 mls @ 250 mls/hr 01/07/20 00:41 01/07/20 04:27 D5ns 1000 Ml/Kcl 20 Meq Premix Bag IV 02/06/20 00:40 250 mls/hr CONTINUOUS PRN 250 mls/hr THIS MED IS NOT "PRN" Administration Albumin Human 12.5 gm in 50 mls @ 50 mls/hr 01/07/20 09:00 01/07/20 16:07 Albuminar-25 Rtu Inj 12.5 Gm/50 Ml Premix IV 01/07/20 11:59 50 ml/hr Q1H LISA 50 mls/hr Administration Dextrose/Lactated Ringer's 1,000 mls @ 150 mls/hr 01/07/20 07:48 01/07/20 12:38 D5lr 1000 Ml Iv Soln IV 02/06/20 07:47 150 mls/hr CONTINUOUS PRN Administration THIS MED IS NOT "PRN" Calcium Gluconate 1 gm in 50 mls @ 50 mls/hr 01/07/20 11:15 01/07/20 12:57 Calcium Gluconate Rtu 1 Gm/50 Ml IV 01/07/20 13:14 50 mls/hr Q1H LISA Administration Potassium Chloride 20 meq/ 1,010 mls @ 150 mls/hr 01/07/20 14:05 Dextrose/Lactated Ringer's IV 02/06/20 07:47 CONTINUOUS PRN THIS MED IS NOT "PRN" Potassium Cl/Dextrose/Lact Ringer's 20 meq in 1,000 mls @ 150 mls/hr 01/07/20 14:29 01/09/20 10:30 D5lr 1000 Ml/Kcl 20 Meq Premix Bag IV 02/06/20 14:28 Infused CONTINUOUS PRN Infusion THIS MED IS NOT "PRN" Potassium Chloride/Water 20 meq in 50 mls @ 25 mls/hr 01/07/20 19:00 01/08/20 01:56 Potassium Chloride Derrick 20 Meq/50 Ml IV 01/07/20 22:59 Infused Q2H LISA Infusion Calcium Gluconate 1 gm in 50 mls @ 50 mls/hr 01/07/20 19:30 01/07/20 21:00 Calcium Gluconate Rtu 1 Gm/50 Ml IV 01/07/20 21:29 50 mls/hr Q1H LISA Administration Potassium Phosphate 30 mmol/ 500 mls @ 125 mls/hr 01/09/20 09:00 Sodium Chloride IV 01/09/20 12:59 ONCE ONE Potassium Chloride/Water 20 meq in 50 mls @ 25 mls/hr 01/08/20 19:59 01/09/20 02:11 Potassium Chloride Derrick 20 Meq/50 Ml IV 01/08/20 23:58 Infused Q2H LISA Infusion Potassium Chloride/Water 20 meq in 50 mls @ 25 mls/hr 01/08/20 22:30 01/09/20 04:25 Potassium Chloride Derrick 20 Meq/50 Ml IV 01/09/20 00:29 Infused NOW ONE Infusion Potassium Phosphate 30 mmol/ 500 mls @ 125 mls/hr 01/09/20 11:30 01/09/20 19:30 Sodium Chloride IV 01/09/20 15:29 Infused NOW ONE Infusion Magnesium Sulfate/Dextrose 1 gm in 100 mls @ 100 mls/hr 01/09/20 11:00 01/09/20 19:30 Magnesium Sulfate Rtu-D5w 1 Gm/100 Ml Premix IV 01/09/20 13:59 Infused Q1H LISA Infusion Potassium Phosphate 30 mmol/ 500 mls @ 125 mls/hr 01/10/20 10:00 01/10/20 11:04 Sodium Chloride IV 01/10/20 13:59 125 mls/hr NOW ONE 125 mls/hr Administration Insulin Human Regular 100 unit 01/04/20 21:47 01/04/20 22:39 Humulin R (Pyxis) Insulin 100 Unit/Ml 3ml IV 01/04/20 21:48 100 unit IVBAG (ED) ONE Administration Protocol Insulin Human Regular 0 - 15 unit 01/04/20 23:00 01/05/20 09:27 Humulin R (Pyxis) Insulin 100 Unit/Ml 3ml SUBCUT 02/03/20 22:59 12 unit Q4 LISA Administration Protocol Insulin Human Regular 8 unit 01/05/20 10:30 01/05/20 13:12 Humulin R (Pyxis) Insulin 100 Unit/Ml 3ml IV 01/05/20 10:31 8 unit NOW ONE Administration Insulin Human Regular Confirm 01/05/20 13:01 01/05/20 13:20 Humulin R (Pyxis) Insulin 100 Unit/Ml 3ml Administered 01/05/20 13:02 Not Given Dose 1 unit .ROUTE .STK-MED ONE Ketorolac Tromethamine 15 mg 01/04/20 20:14 01/04/20 20:32 Toradol Inj/Pf 30 Mg/1 Ml Sdv IV 01/04/20 20:15 15 mg NOW ONE Administration Ketorolac Tromethamine 15 mg 01/05/20 16:04 01/08/20 22:29 Toradol Inj/Pf 30 Mg/1 Ml Sdv IV 01/10/20 16:03 15 mg Q6HP PRN Administration FOR BREAKTHROUGH PAIN Ketorolac Tromethamine 15 mg 01/09/20 10:28 01/10/20 03:42 Toradol Inj/Pf 30 Mg/1 Ml Sdv IV 01/10/20 16:03 15 mg Q6HP PRN Administration FOR PAIN SCALE 4-5 Lorazepam 1 mg 01/04/20 23:00 01/06/20 06:52 Ativan Inj 2 Mg/1 Ml Vial IV 01/11/20 22:59 1 mg Q4HP PRN Administration ANXIETY/AGITATION Magnesium Hydroxide 30 ml 01/04/20 22:55 Milk Of Magnesia 30 Ml Udcup PO 02/03/20 22:54 HSP PRN FOR CONSTIPATION Magnesium Hydroxide 30 ml 01/07/20 06:00 Milk Of Magnesia 30 Ml Udcup NG 02/03/20 22:54 HSP PRN FOR CONSTIPATION Metoprolol Tartrate 25 mg 01/05/20 19:00 01/07/20 05:11 Lopressor 25 Mg Tablet PO 02/04/20 18:59 Not Given Q6 LISA Metoprolol Tartrate 50 mg 01/07/20 06:00 Lopressor 50 Mg Tablet PO 02/06/20 05:59 Q6 LISA Metoprolol Tartrate 50 mg 01/07/20 06:00 01/07/20 17:41 Lopressor 50 Mg Tablet NG 02/06/20 05:59 50 mg Q6 LISA Administration Metoprolol Tartrate 5 mg 01/07/20 06:00 01/07/20 07:06 Lopressor Inj/Pf 5 Mg/5 Ml Sdv IV 01/07/20 06:11 5 mg Q5M LISA Administration Metoprolol Tartrate 50 mg 01/08/20 00:00 01/08/20 23:38 Lopressor 50 Mg Tablet PO 02/06/20 05:59 50 mg Q6 LISA Administration Metoprolol Tartrate 50 mg 01/08/20 23:45 01/09/20 00:14 Lopressor 50 Mg Tablet PO 01/08/20 23:46 50 mg NOW ONE Administration Metoprolol Tartrate 100 mg 01/09/20 06:00 01/10/20 18:30 Lopressor 100 Mg Tablet PO 02/08/20 05:59 100 mg Q6 LISA Administration Morphine Sulfate 2 - 4 mg 01/04/20 23:00 01/05/20 14:49 Morphine 10 Mg/Ml Inj IV 01/11/20 22:59 3 mg Q2HP PRN Administration See protocol Protocol Morphine Sulfate 2 mg 01/06/20 09:08 01/09/20 08:26 Morphine 10 Mg/Ml Inj IV 01/13/20 09:07 2 mg Q3HP PRN Administration FOR PAIN SCALE 4-5 Ltmoz-6-Ptcd Ethyl Esters 1 gm 01/09/20 11:00 01/09/20 11:22 Lovaza 1 Gm Capsule PO 01/09/20 11:01 1 gm NOW ONE Administration Ondansetron HCl 4 mg 01/04/20 20:14 01/04/20 20:32 Zofran Inj/Pf 4 Mg/2 Ml Sdv IV 01/04/20 20:15 4 mg NOW ONE Administration Oxycodone/Acetaminophen 2 tab 01/06/20 09:08 01/06/20 16:59 Percocet 5-325 Mg Tablet PO 01/13/20 09:07 2 tab Q6HP PRN Administration FOR PAIN SCALE 2-3 Oxycodone/Acetaminophen 2 tab 01/07/20 06:00 01/07/20 13:51 Percocet 5-325 Mg Tablet NG 01/13/20 09:07 2 tab Q6HP PRN Administration FOR PAIN SCALE 2-3 Oxycodone/Acetaminophen 2 tab 01/07/20 18:30 Percocet 5-325 Mg Tablet PO 01/13/20 09:07 Q6HP PRN FOR PAIN SCALE 2-3 Patient Own Medication 1 tab 01/06/20 10:00 L-Norgest/E.Estradiol-E.Estrad [Levonor-E Estrad 0.1-0.02-0.01] PO 02/05/20 09:59 DAILY [facility] Pharmacy Profile Note 1 each 01/07/20 05:45 Medication Communication Order 02/06/20 05:44 .NOTICE NR Potassium Chloride 40 meq 01/07/20 15:00 01/07/20 14:42 Klor-Con 10 Meq Tablet Er PO 01/07/20 15:01 40 meq NOW ONE Administration Potassium Chloride 40 meq 01/09/20 11:00 01/09/20 11:21 Klor-Con 10 Meq Tablet Er PO 01/09/20 11:01 40 meq NOW ONE Administration Promethazine HCl 12.5 mg 01/04/20 22:55 Phenergan Inj 25 Mg/1 Ml Vial IV 02/03/20 22:54 Q4HP PRN FOR NAUSEA/VOMITING Quetiapine Fumarate 25 mg 01/05/20 14:44 01/05/20 22:49 Seroquel 25 Mg Tablet PO 02/04/20 14:43 25 mg HSP PRN Administration FOR SLEEP Sodium Bicarbonate Confirm 01/05/20 00:57 Sodium Bicarbonate 8.4% Inj 50 Meq/50ml Syrin Administered 01/05/20 00:58 Dose 50 meq .ROUTE .STK-MED ONE Sodium Bicarbonate 1,300 mg 01/06/20 17:00 01/06/20 22:28 Sodium Bicarbonate 650 Mg Tablet PO 02/05/20 16:59 1,300 mg Q12 LISA Administration Sodium Bicarbonate 1,300 mg 01/07/20 10:00 01/07/20 11:34 Sodium Bicarbonate 650 Mg Tablet NG 02/05/20 16:59 1,300 mg Q12 LISA Administration Sodium Bicarbonate 50 meq 01/07/20 08:15 01/07/20 12:23 Sodium Bicarbonate 8.4% Inj 50 Meq/50ml Syrin IV 01/07/20 08:16 Not Given NOW ONE Sodium Bicarbonate 50 meq 01/07/20 12:00 01/07/20 12:39 Sodium Bicarbonate 8.4% Inj 50 Meq/50ml Syrin IV 01/07/20 12:01 50 meq NOW ONE Administration Sodium Bicarbonate 50 meq 01/07/20 12:15 01/07/20 13:00 Sodium Bicarbonate 8.4% Inj 50 Meq/50ml Syrin IV 01/07/20 12:16 Not Given NOW ONE Sodium Bicarbonate 1,300 mg 01/07/20 22:00 01/08/20 21:59 Sodium Bicarbonate 650 Mg Tablet PO 02/05/20 16:59 1,300 mg Q12 LISA Administration Assessment & Plan - Diagnosis (1) Sinus tachycardia Is this a current diagnosis for this admission?: Yes Plan: 29-year-old female with a prior history of sinus tachycardia in her adolescent years who has been consulted to our service for further evaluation of her sinus tachycardia. Her tachycardia has actually improved with pain control and treatment of her acute pancreatitis. I suspect the patient has underlying inappropriate sinus tachycardia syndrome versus autonomic dysfunction which is now exacerbated by her acute illness and further deconditioning. Although her echocardiogram has not been officially read yet, I did review the images and there is no evidence of structural heart disease that could explain her tachycardia. I suspect that she will continue to be mildly tachycardic until she fully recovers from her acute illness and deconditioning. Please check a TSH if not done yet to ensure normal thyroid function. Encourage fluids as her creatinine is now 2.0 and she appears to be clinically mildly dehydrated which will also adversely affect her baseline sinus tachycardia. I discourage the use of Cardizem given her marginal blood pressure. The patient will need outpatient cardiology follow-up. Cardiology does not have further recommendations therefore we will sign off the case for now. Please reconsult if necessary. (2) Acute pancreatitis Qualifiers: Pancreatitis type: other Acute pancreatitis complication: no infection or necrosis Qualified Code(s): K85.80 - Other acute pancreatitis without necrosis or infection Is this a current diagnosis for this admission?: Yes Plan: Improving and resolving. Further recommendations per hospitalist group.
--- NOTE | 2020-01-11 10:34 | XCELERA REPORT ---
[address] [address] Transthoracic Echocardiogram Report Name: PAVITHRA BOSS Age: 29 yrs Gender: Female : 1990 Patient Status: [facility] Study Date: 01/10/2020 01:03 PM Height: 60 in Weight: 191 lb BSA: 1.8 m2 Reason For Study: pvcs. severe HLD. possible cardiomyopathy.Raheel Ordering Physician: SAWYER CARLTON Performed By: Ally Cadet Interpretation Summary FINDINGS: LEFT VENTRICLE: LV Systolic function: LVEF is felt to be within normal limits. Best estimate is approximately LVEF is 60 to 65%. LV Diastolic Function: No diastolic dysfunction noted. Wall motion : No definite regional wall motion abnormalities are noted. Left ventricular chamber size : is within normal limit. Left ventricular wall thickness : Borderline LVH noted. RIGHT VENTRICLE: RV systolic function : is felt to be within normal limit. Right Ventricle Size : is within normal limits. LEFT ATRIUM size : is within normal limit. RIGHT ATRIUM size : is within normal limit. INTER ATRIAL SEPTUM : No definite atrial septal defect noted however a small PFO could be missed. AORTIC ROOT : seems to be within normal limits. Ascending aorta is not well visualized. INFERIOR VENA CAVA: was not well visualized. VALVES: MITRAL VALVE : Leaflets are mildly thickened. Mobility seems to be within normal limits. Mitral Regurgitation : Trace mitral regurgitation is noted. Mitral Stenosis: No mitral stenosis noted. Mitral valve prolapse : none noted. AORTIC VALVE: seems to be trileaflet with mild thickening but adequate excursion. Aortic stenosis : No aortic stenosis noted. Aortic regurgitation : No aortic incompetence noted. TRICUSPID VALVE : mobility and structures within normal limit. Tricuspid stenosis : no tricuspid stenosis noted. Tricuspid regurgitation : Trace tricuspid regurgitation noted. Estimated RVSP : upper limit of normal. PULMONARY VALVE : was not well visualized but no significant abnormalities suspected. Pulmonary stenosis : no pulmonary stenosis noted. Pulmonary regurgitation : no significant pulmonary regurgitation noted. MASSES AND THROMBUS : No definite intracardiac thrombus or masses are noted. PERICARDIUM: No pericardial effusion was noted. IMPRESSION : 1. Normal LVEF. 2. Normal chamber sizes noted. Borderline LVH noted. 3. No Diastolic Dysfunction noted. 4. No significant valvular stenosis or regurgitation noted. MMode/2D Measurements & Calculations RVDd: 2.0 cm LVIDd: 4.4 cm FS: 34.6 % Ao root diam: 2.1 cm IVSd: 0.62 cm LVIDs: 2.9 cm EDV(Teich): 88.4 ml LVPWd: 0.86 cm ESV(Teich): 31.9 ml Ao root area: 3.6 cm2 EF(Teich): 63.9 % Doppler Measurements & Calculations MV E max antonio: MV dec slope: Ao V2 max: LV V1 max P.1 cm/sec 719.1 cm/sec2 155.3 cm/sec 5.4 mmHg MV A max antonio: MV dec time: 0.13 secAo max PG: LV V1 max: 87.1 cm/sec 9.6 mmHg 115.9 cm/sec MV E/A: 1.1 PA V2 max: TR max antonio: 112.8 cm/sec 260.9 cm/sec PA max P.1 mmHg TR max P.4 mmHg Electronically signed by: Isaias Marquis 01/11/2020 10:33 AM CC: SAWYER CARLTON Shyamal
[2020-01-11] MEDS: PANTOPRAZOLE SODIUM 40 MG VIAL IV SCH ×2 (11:13→21:57)
[2020-01-11] MEDS: OMEGA-3 ACID ETHYL ESTERS 1 GM CAPSULE PO SCH (11:14)
[2020-01-11] MEDS: DULOXETINE HCL 30 MG CAPSULE.DR PO SCH (11:14)
[2020-01-11] MEDS: FENOFIBRATE NANOCRYSTALLIZED 145 MG TABLET PO SCH (11:14)
[2020-01-11] MEDS: METFORMIN HCL 500 MG TABLET PO SCH (11:15)
[2020-01-11] MEDS: GLIPIZIDE 5 MG TABLET PO SCH (11:16)
[2020-01-11] MEDS: NORMAL SALINE 10 ML SDV (SCHEDULED) IV SCH ×2 (11:19→21:58)
[2020-01-11] MEDS ORDERED: NORMAL SALINE 1000 ML 1,000 ML IV ONE (13:30)
[2020-01-11] MEDS ORDERED: PHYTONADIONE 5 MG TABLET PO ONE (15:00)
--- NOTE | 2020-01-11 16:10 | RADIOLOGY REPORT (SQ) ---
EXAM DESCRIPTION: U/S ABDOMEN LTD W/DOPPLER IMAGES COMPLETED DATE/TIME: 01/11/2020 3:47 pm REASON FOR STUDY: RUQ rising liver enzymes, Budd Chiari?, cirrhosis? COMPARISON: None. TECHNIQUE: Dynamic and static grayscale images acquired of the abdomen and recorded on PACS. Additio nal selected color Doppler and spectral images recorded. LIMITATIONS: Body habitus. Bowel gas. FINDINGS: PANCREAS: Poorly seen LIVER: Increased echogenicity. Hypoechoic lesion in the right lobe measures 8.1 x 5.7 x 3.8 cm. LIVER VASCULATURE: Normal directional flow of the main portal vein and hepatic veins. GALLBLADDER: The gallbladder wall is thickened. There is no pericholecystic fluid. There are no gal lstones. ULTRASOUND-DETECTED SEBASTIAN'S SIGN: Negative. INTRAHEPATIC DUCTS AND COMMON DUCT: CBD and intrahepatic ducts normal caliber. No filling defects. INFERIOR VENA CAVA: Patent. AORTA: No aneurysm. The distal aorta was obscured by gas. RIGHT KIDNEY: Normal size, 13.2 cm. Normal echogenicity. No solid or suspicious masses. No hydroneph rosis. No calcifications. PERITONEAL AND RIGHT PLEURAL SPACE: No ascites or effusions. OTHER: No other significant findings. IMPRESSION: 1. Hepatic steatosis. There is a hypoechoic lesion in the right lobe and measures 8.1 x 5.7 x 3.[address] scan done on 01/04/2020 this area is seen as an area of focal fatty sparing. 2. Slight thickening of the gallbladder wall but no other indication of cholecystitis. There are no gallstones. There is no pericholecystic fluid. 3. The pancreas was obscured by gas. No abnormal fluid collection was seen to suggest the presence of a pseudocyst. TECHNICAL DOCUMENTATION: JOB ID: [id number] 2010 [employer]- All Rights Reserved Reading location - IP/workstation name: [email or web address]
--- NOTE | 2020-01-11 16:13 | PDOC CONSULTATION ---
Consultation Consult Date: 01/11/20 Provider Consulted: MARIE CANAS Consult reason:: abnormal LFT History of Present Illness Admission Date/PCP: 01/04/20 22:52 History of Present Illness: PAVITHRA BOSS is a 29 year old female patient admitted over 1 week ago was admitted for hypertriglyceridemia induced pancreatitis initial CT did not show any PVT, no suggestion of Budd Chiari patient now has elevated LFT's after what appeared to be uncomplicated recovery intial CT did show gallstones however ultrasound done at time of admission did not show any dilated CBD now has elevated T Bili and both transaminases including AST >> than ALT spoke with Dr Sinclair would recommend repeating ultrasound , may need MRCP did have gallstones initially as well patient had slightly elevated PT as well follow up on her LFT's as well check ANAMARIA, AMA , iron studies and ceruloplasmin as well Past Medical History Cardiac Medical History: Denies: Coronary Artery Disease, DVT, Hyperlipidema, Hypertension Pulmonary Medical History: Denies: Asthma, Chronic Obstructive Pulmonary Disease (COPD) EENT Medical History: Denies: Cataracts, Ears - Hearing aids Neurological Medical History: Denies: Multiple Sclerosis, Seizures Endocrine Medical History: Denies: Diabetes Mellitus Type 1, Diabetes Mellitus Type 2, Hyperthyroidism, Hypothyroidism Renal/ Medical History: Denies: Chronic Kidney Disease, Nephrolithiasis Malignancy Medical History: Reports: None GI Medical History: Reports: Peptic Ulcer Disease Denies: Cirrhosis, Crohn's Disease, Gastroesophageal Reflux Disease, Hepatitis, Ulcerative Colitis Musculoskeltal Medical History: Denies: Arthritis, Gout Skin Medical History: Denies: Eczema, Psoriasis Psychiatric Medical History: Denies: Alcohol Dependency, Depression, Substance Abuse, Tobacco Dependency Traumatic Medical History: Reports: None Hematology: Denies: Anemia, Bleeding Tendencies Infectious Medical History: Reports: None Past Surgical History Past Surgical History: Reports: None, Other - Jaw surgery for overbite Social History Lives with: Spouse/Significant other Smoking Status: Never Smoker Electronic Cigarette use?: No Frequency of Alcohol Use: Occasional Hx Recreational Drug Use: No Drugs: None Hx Prescription Drug Abuse: No - Advance Directive Resuscitation Status: Full Code Family History Family History: denies: CAD, DM, Hypertension, Malignancy Parental Family History Reviewed: Yes Children Family History Reviewed: Unknown Sibling(s) Family History Reviewed.: Unknown Medication/Allergy Home Medications: Dextroamphetamine/Amphetamine [Dextroamp-Amphetamin 20 mg Tab] 20 mg PO TIDP PRN 01/05/20 Dicyclomine HCl [Bentyl 20 mg Tablet] 20 mg PO QIDP PRN 01/05/20 Duloxetine HCl [Cymbalta] 60 mg PO DAILY 01/05/20 Ondansetron [Zofran Odt 4 mg Tablet] 4 mg PO Q6HP PRN 01/05/20 Quetiapine Fumarate [Seroquel 25 mg Tablet] 25 mg PO HSP PRN 01/05/20 l-Norgest/E.estradiol-E.estrad [Levonor-E Estrad 0.1-0.02-0.01] 1 tab PO DAILY 01/05/20 Allergies/Adverse Reactions: acetaminophen [From Vicodin] Allergy (Intermediate, Verified 01/05/20 08:46) Hives hydrocodone [From Vicodin] Allergy (Intermediate, Verified 01/05/20 08:46) Hives Review of Systems Constitutional: ABSENT: fever(s), headache(s), night sweats, weakness Eyes: ABSENT: visual disturbances Ears: ABSENT: hearing changes Nose, Mouth, and Throat: ABSENT: mouth pain, sore throat Respiratory: ABSENT: dyspnea, hemoptysis Gastrointestinal: ABSENT: hematemesis, hematochezia, melena Genitourinary: ABSENT: dysuria, hematuria Integumentary: ABSENT: pruritus Neurological: ABSENT: syncope, tingling, tremor(s) Endocrine: ABSENT: polydipsia, polyphagia, polyuria Hematologic/Lymphatic: ABSENT: easy bruising, lymphadenopathy Physical Exam Vital Signs: Temp Pulse Resp BP Pulse Ox 98.2 F 114 H 16 96/76 L 93 01/11/20 11:22 01/11/20 13:40 01/11/20 13:40 01/11/20 11:22 01/11/20 13:40 Intake & Output 01/10/20 01/11/20 01/12/20 06:59 06:59 06:59 Intake Total 2507 470 Output Total 3775 300 Balance 382 170 Weight 84.8 kg 84.5 kg General appearance: PRESENT: no acute distress Head exam: PRESENT: atraumatic, normocephalic Eye exam: PRESENT: EOMI. ABSENT: nystagmus, periorbital swelling Mouth exam: PRESENT: moist, neck supple Neck exam: ABSENT: meningismus, tenderness, thyromegaly Respiratory exam: ABSENT: rhonchi, stridor, symmetrical, tachypnea, unlabored, wheezes Cardiovascular exam: PRESENT: RRR, +S1, +S2 GI/Abdominal exam: PRESENT: normal bowel sounds, soft. ABSENT: Peralta's sign, rebound, rigid Extremities exam: ABSENT: joint swelling Musculoskeletal exam: PRESENT: full ROM Neurological exam: PRESENT: alert, awake, CN II-XII grossly intact Skin exam: ABSENT: normal color, pallor, petechiae, urticaria, vesicles Results Laboratory Results: 01/11/20 06:00 01/11/20 06:06 01/11/20 01/11/20 06:00 06:06 WBC 14.4 H RBC 3.77 Hgb 11.1 L Hct 33.5 L MCV 89 MCH 29.4 MCHC 33.1 RDW 16.7 H Plt Count 264 Sodium 132.8 L Potassium 3.9 Chloride 104 Carbon Dioxide 19 L Anion Gap 10 BUN 18 Creatinine 2.02 H Est GFR ( Amer) 35 L Glucose 136 H Calcium 7.4 L Phosphorus 4.5 Magnesium 2.4 H Total Bilirubin 1.7 H AST 1178 H Alkaline Phosphatase 320 H Total Protein 5.5 L Albumin 2.5 L Triglycerides 635 H 01/06/20 05:27 Creatine Kinase 300 H Impressions: Abdomen/Pelvis CT 01/04/20 00:00 IMPRESSION: Acute pancreatitis without evidence of pseudocyst. Chest X-Ray 01/07/20 00:00 IMPRESSION: Ill-defined airspace opacity in the right lung base. In the setting of low lung volumes, this may represent atelectasis. However, an infectious process such as pneumonia or a viral process is difficult to exclude. If clinically feasible, consider an upright PA and lateral chest x-ray for further characterization. PICC Line Insertion 01/07/20 00:00 IMPRESSION: SUCCESSFUL PLACEMENT OF A 5 FR DUAL LUMEN 39 CM PICC IN THE RIGHT BRACHIOCEPHALIC VEIN. KUB X-Ray 01/07/20 05:44 IMPRESSION: Nonspecific nonobstructive bowel gas pattern. Assessment & Plan - Diagnosis (1) Abnormal LFTs Plan: will need to order ultrasound and based on that results consider MRCP vs ERCP fabiola make sure other labs are checked as well including hepatitis panel, ANAMARIA, AMA , iron studies and ceruloplasmin follow up LFT's and coagulation profile as well further recommendations to follow - Time Time Spent: 50 to 70 Minutes
--- NOTE | 2020-01-11 18:42 | PDOC PROGRESS REPORT ---
Subjective Progress Note for:: 01/11/20 Subjective:: Patient feels well. Still having abdominal pain though but improved. Reason For Visit: ACUTE PANCREATITIS,ABDOMINAL PAIN,HYPERGLYCEMIA Physical Exam Vital Signs: Temp Pulse Resp BP Pulse Ox 98.6 F 120 H 20 98/43 L 97 01/11/20 16:13 01/11/20 16:13 01/11/20 16:13 01/11/20 16:13 01/11/20 16:13 Intake & Output 01/10/20 01/11/20 01/12/20 06:59 06:59 06:59 Intake Total 2507 470 Output Total 2125 300 Balance 382 170 Weight 84.8 kg 84.5 kg General appearance: PRESENT: no acute distress, cooperative Neck exam: ABSENT: JVD Respiratory exam: PRESENT: clear to auscultation emil, unlabored. ABSENT: tachypnea, wheezes Cardiovascular exam: PRESENT: RRR, +S1, +S2. ABSENT: tachycardia GI/Abdominal exam: PRESENT: soft, tenderness. ABSENT: rebound, rigid Neurological exam: PRESENT: alert, awake, oriented to person, oriented to place, oriented to time Results Laboratory Results: 01/11/20 06:00 01/11/20 06:06 01/11/20 01/11/20 06:00 06:06 WBC 14.4 H RBC 3.77 Hgb 11.1 L Hct 33.5 L MCV 89 MCH 29.4 MCHC 33.1 RDW 16.7 H Plt Count 264 Sodium 132.8 L Potassium 3.9 Chloride 104 Carbon Dioxide 19 L Anion Gap 10 BUN 18 Creatinine 2.02 H Est GFR ( Amer) 35 L Glucose 136 H Calcium 7.4 L Phosphorus 4.5 Magnesium 2.4 H Total Bilirubin 1.7 H AST 1178 H Alkaline Phosphatase 320 H Total Protein 5.5 L Albumin 2.5 L Triglycerides 635 H 01/06/20 05:27 Creatine Kinase 300 H Impressions: Abdomen/Pelvis CT 01/04/20 00:00 IMPRESSION: Acute pancreatitis without evidence of pseudocyst. Chest X-Ray 01/07/20 00:00 IMPRESSION: Ill-defined airspace opacity in the right lung base. In the setting of low lung volumes, this may represent atelectasis. However, an infectious process such as pneumonia or a viral process is difficult to exclude. If clinically feasible, consider an upright PA and lateral chest x-ray for further characterization. PICC Line Insertion 01/07/20 00:00 IMPRESSION: SUCCESSFUL PLACEMENT OF A 5 FR DUAL LUMEN 39 CM PICC IN THE RIGHT BRACHIOCEPHALIC VEIN. KUB X-Ray 01/07/20 05:44 IMPRESSION: Nonspecific nonobstructive bowel gas pattern. Abdomen Ultrasound 01/11/20 00:00 IMPRESSION: 1. Hepatic steatosis. There is a hypoechoic lesion in the right lobe and measures 8.1 x 5.7 x 3.[address] scan done on 01/04/2020 this area is seen as an area of focal fatty sparing. 2. Slight thickening of the gallbladder wall but no other indication of cholecystitis. There are no gallstones. There is no pericholecystic fluid. 3. The pancreas was obscured by gas. No abnormal fluid collection was seen to suggest the presence of a pseudocyst. Assessment and Plan - Diagnosis (1) Acute pancreatitis Qualifiers: Pancreatitis type: other Acute pancreatitis complication: no infection or necrosis Qualified Code(s): K85.80 - Other acute pancreatitis without necrosis or infection Is this a current diagnosis for this admission?: Yes Plan: Severe hypertriglyceridemia-induced acute pancreatitis. Now clinically improving after a severe bout. Her urine output is now persistently very good. Hypocalcemia and metabolic acidosis seem to be resolving as well. These are good prognostic indicators. Improved significantly. Patient is tolerating soft bland diet. However still not eating much. Continue pain control. Toradol discontinued because of GEORGE. (2) GEORGE (acute kidney injury) Is this a current diagnosis for this admission?: Yes Plan: Creatinine jumped to 2 today. Most likely secondary to dehydration and poor p.o. intake. Given normal saline bolus and started on normal saline continuous infusion. Monitor renal function. Monitor urine output. (3) Hypertriglyceridemia Is this a current diagnosis for this admission?: Yes Plan: Likely familial. Triglyceride was over 9800 on admission. It has improved to 477 yesterday after being on an insulin drip for 3.5 days. Triglycerides are slowly trending back up since insulin drip was discontinued 2 days ago. Will check triglycerides in the a.m. Hopefully, triglycerides can be controlled now with fenofibrate and omega-3 fatty acids. If triglycerides start to trend back up significantly as she is now off insulin drip, the next alternative will be to transfer for plasmapheresis. (4) High anion gap metabolic acidosis Is this a current diagnosis for this admission?: Yes Plan: High anion gap was due to ketosis from hypertriglyceridemia not DKA but anion g ap has normalized and bicarbonate continues to improve now at 19. Monitor bicarb (5) New onset type 2 diabetes mellitus Is this a current diagnosis for this admission?: Yes Plan: Hemoglobin A1c of 8.9. I suspect type 2 diabetes mellitus from insulin resistance given patient's obesity and metabolic syndrome. Will check KHURRAM 65. Given financial difficulties expressed by patient, I placed patient on metformin 500 BID and glipizide 5 mg BID. Monitor Accu-Cheks. ISS. (6) Sinus tachycardia Is this a current diagnosis for this admission?: Yes Plan: Persistently sinus tachycardia in the 130s to 140s early in hospitalization. Potential etiologies were addressed such as pain, anxiety, hypoxia but tachycardia persisted. Patient was also having some runs of PVCs [NsVT] and as such patient is on Lopressor. I suspected her PVCs were due to electrolyte abnormalities including hypocalcemia hypokalemia hypomagnesemia and hypophosphatemia which have been addressed. I reviewed telemetry today PVCs seem to have resolved. Echo unremarkable. Cardiology consulted. (7) Transaminitis Is this a current diagnosis for this admission?: Yes Plan: Liver enzymes are rising significantly. We will continue to monitor trend. Check hepatitis panel as recommended by GI. Abdominal ultrasound was really unremarkable for any biliary ducts obstruction or Budd-Chiari. PT and PTT are significantly elevated which gives me concern for patient's liver function. I will repeat labs. Check ammonia. GI is consulted. If no improvement, may need transfer for hepatology evaluation. (8) Lesion of liver greater than 1 cm in diameter Is this a current diagnosis for this admission?: Yes (9) Hypercholesterolemia Is this a current diagnosis for this admission?: Yes Plan: Started on atorvastatin. LDL was 190. I have reduced atorvastatin dose today to 40 mg due to worsening transaminitis. Follow-up enzymes in a.m. (10) Anemia Qualifiers: Anemia type: unspecified type Qualified Code(s): D64.9 - Anemia, unspecified Is this a current diagnosis for this admission?: Yes Plan: Hemoglobin is now steady. No evidence of bleeding besides starting her menstrual period. (11) Hypocalcemia Is this a current diagnosis for this admission?: Yes Plan: Secondary to fat saponification from pancreatitis. She was initially requiring large amounts of IV and p.o. calcium supplementation daily. However hypo calcemia has remained resolved at this point's corrected calcium today is normal. (12) Atelectasis Is this a current diagnosis for this admission?: Yes Plan: Incentive spirometer. Ambulation encouraged. Seen by PT. - Time Time Spent with patient: 15-24 minutes
[2020-01-11 19:10] LABS: INTERNATIONAL RATION (INR) 1.72; PROTHROMBIN TIME 20.4 SEC (11.4-15.4)
[2020-01-11 19:12] LABS: PARTIAL THROMBOPLASTIN TIME 131.7 SEC (23.5-35.8)
[2020-01-11 19:29] LABS: ANION GAP 13 (5-19); BLOOD UREA NITROGEN 23 mg/dL (7-20); CARBON DIOXIDE 14 mmol/L (22-30); CHLORIDE 103 mmol/L (98-107); GLUCOSE 194 mg/dL (75-110); POTASSIUM 4.3 mmol/L (3.6-5.0)
[2020-01-11 19:41] LABS: CALCIUM 6.9 mg/dL (8.4-10.2)
[2020-01-11] MEDS ORDERED: CALCIUM GLUCONATE 1000 MG/10 ML INJ IV ONE (20:44)
[2020-01-11] MEDS: ATORVASTATIN CALCIUM 40 MG TABLET PO SCH (21:56)
[2020-01-11] MEDS: CALCIUM GLUCONATE 1 GM/NS 50 ML RTU IV SCH ×2 (21:56→23:30)
[2020-01-11] MEDS: NORMAL SALINE 1000 ML 1,000 ML IV PRN (23:37)
[2020-01-12] MEDS: IPRATROPIUM/ALBUTEROL 0.5-2.5 MG/3 ML AMPUL NEB PRN ×3 (02:42→14:57)
[2020-01-12] MEDS: OXYCODONE-ACETAMINOPHEN 5-325 MG TABLET PO PRN (03:46)
[2020-01-12] MEDS: METOPROLOL TARTRATE 100 MG TABLET PO SCH ×3 (05:41→17:47)
[2020-01-12] MEDS: NORMAL SALINE 1000 ML 1,000 ML IV PRN (05:59)
[2020-01-12 06:38] LABS: ALBUMIN 2.4 g/dL (3.5-5.0); ALKALINE PHOSPHATASE 415 U/L (38-126); ANION GAP 14 (5-19); BILIRUBIN,DIRECT 1.7 mg/dL (0.0-0.4); BILIRUBIN,TOTAL 2.1 mg/dL (0.2-1.3); BLOOD UREA NITROGEN 29 mg/dL (7-20); CARBON DIOXIDE 11 mmol/L (22-30); CHLORIDE 103 mmol/L (98-107); GLUCOSE 166 mg/dL (75-110); POTASSIUM 4.8 mmol/L (3.6-5.0); TOTAL PROTEIN 5.5 g/dL (6.3-8.2)
[2020-01-12 06:48] LABS: TRIGLYCERIDES 677 mg/dL (<150)
[2020-01-12 06:52] LABS: ASPARTATE AMINO TRANSFERASE 1580 U/L (14-36)
[2020-01-12 06:53] LABS: CALCIUM 6.8 mg/dL (8.4-10.2)
[2020-01-12 07:49] LABS: INTERNATIONAL RATION (INR) 1.82; PROTHROMBIN TIME 21.3 SEC (11.4-15.4)
[2020-01-12 08:07] LABS: PARTIAL THROMBOPLASTIN TIME 168.5 SEC (23.5-35.8)
--- NOTE | 2020-01-12 08:53 | PDOC CONSULTATION ---
Consultation Consult Date: 01/12/20 Attending physician:: SAWYER CARLTON Provider Consulted: ALEXEY TEJADA Consult reason:: Coagulopathy, concern of liver lesion History of Present Illness Admission Date/PCP: 01/04/20 22:52 Patient complains of: Abdominal pain History of Present Illness: PAVITHRA BOSS is a 29 year old female Zen with severe pancreatitis, transaminitis, coagulopathy, has had abdominal pain about 2 to 3 days prior to coming in about a week ago, and still has abdominal pain was found to have a severe pancreatitis with transaminitis, elevated INR and PTT, consistent with liver induced coagulopathy. Past Medical History Cardiac Medical History: Denies: Coronary Artery Disease, DVT, Hyperlipidema, Hypertension Pulmonary Medical History: Denies: Asthma, Chronic Obstructive Pulmonary Disease (COPD) EENT Medical History: Denies: Cataracts, Ears - Hearing aids Neurological Medical History: Denies: Multiple Sclerosis, Seizures Endocrine Medical History: Denies: Diabetes Mellitus Type 1, Diabetes Mellitus Type 2, Hyperthyroidism, Hypothyroidism Renal/ Medical History: Denies: Chronic Kidney Disease, Nephrolithiasis Malignancy Medical History: Reports: None GI Medical History: Reports: Peptic Ulcer Disease Denies: Crohn's Disease, Gastroesophageal Reflux Disease, Hepatitis, Ulcerative Colitis Musculoskeltal Medical History: Denies: Arthritis, Gout Skin Medical History: Denies: Eczema, Psoriasis Psychiatric Medical History: Denies: Alcohol Dependency, Depression, Substance Abuse, Tobacco Dependency Traumatic Medical History: Reports: None Hematology: Denies: Anemia, Bleeding Tendencies Infectious Medical History: Reports: None Past Surgical History Past Surgical History: Reports: None, Other - Jaw surgery for overbite Social History Lives with: Spouse/Significant other Smoking Status: Never Smoker Electronic Cigarette use?: No Frequency of Alcohol Use: Occasional Hx Recreational Drug Use: No Drugs: None Hx Prescription Drug Abuse: No - Advance Directive Resuscitation Status: Full Code Family History Family History: denies: CAD, DM, Hypertension, Malignancy Parental Family History Reviewed: Yes Children Family History Reviewed: Yes Sibling(s) Family History Reviewed.: Yes Medication/Allergy Home Medications: Dextroamphetamine/Amphetamine [Dextroamp-Amphetamin 20 mg Tab] 20 mg PO TIDP PRN 01/05/20 Dicyclomine HCl [Bentyl 20 mg Tablet] 20 mg PO QIDP PRN 01/05/20 Duloxetine HCl [Cymbalta] 60 mg PO DAILY 01/05/20 Ondansetron [Zofran Odt 4 mg Tablet] 4 mg PO Q6HP PRN 01/05/20 Quetiapine Fumarate [Seroquel 25 mg Tablet] 25 mg PO HSP PRN 01/05/20 l-Norgest/E.estradiol-E.estrad [Levonor-E Estrad 0.1-0.02-0.01] 1 tab PO DAILY 01/05/20 Allergies/Adverse Reactions: acetaminophen [From Vicodin] Allergy (Intermediate, Verified 01/05/20 08:46) Hives hydrocodone [From Vicodin] Allergy (Intermediate, Verified 01/05/20 08:46) Hives Review of Systems Constitutional: ABSENT: chills, fever(s), headache(s), weight gain, weight loss Eyes: ABSENT: visual disturbances Ears: ABSENT: hearing changes Cardiovascular: ABSENT: chest pain, dyspnea on exertion, edema, orthropnea, palpitations Respiratory: ABSENT: cough, hemoptysis Gastrointestinal: ABSENT: abdominal pain, constipation, diarrhea, hematemesis, hematochezia, nausea, vomiting Genitourinary: ABSENT: dysuria, hematuria Musculoskeletal: ABSENT: joint swelling Integumentary: ABSENT: rash, wounds Neurological: ABSENT: abnormal gait, abnormal speech, confusion, dizziness, focal weakness, syncope Psychiatric: ABSENT: anxiety, depression, homidical ideation, suicidal ideation Endocrine: ABSENT: cold intolerance, heat intolerance, polydipsia, polyuria Hematologic/Lymphatic: ABSENT: easy bleeding, easy bruising Physical Exam Vital Signs: Temp Pulse Resp BP Pulse Ox 97.8 F 114 H 18 107/68 98 01/12/20 07:32 01/12/20 07:32 01/12/20 07:32 01/12/20 07:32 01/12/20 07:32 Intake & Output 01/11/20 01/12/20 01/13/20 06:59 06:59 06:59 Intake Total 470 1811 Output Total 300 200 Balance 170 1611 Weight 84.5 kg 89 kg General appearance: PRESENT: no acute distress, well-developed, well-nourished Head exam: PRESENT: atraumatic, normocephalic Eye exam: PRESENT: conjunctiva pink, EOMI, PERRLA. ABSENT: scleral icterus Ear exam: PRESENT: normal external ear exam Mouth exam: PRESENT: moist, tongue midline Neck exam: ABSENT: carotid bruit, JVD, lymphadenopathy, thyromegaly Respiratory exam: PRESENT: clear to auscultation emil. ABSENT: rales, rhonchi, wheezes Cardiovascular exam: PRESENT: RRR. ABSENT: diastolic murmur, rubs, systolic murmur Pulses: PRESENT: normal dorsalis pedis pul Vascular exam: PRESENT: normal capillary refill GI/Abdominal exam: PRESENT: normal bowel sounds, soft. ABSENT: distended, guarding, mass, organolmegaly, rebound, tenderness Rectal exam: PRESENT: deferred Extremities exam: PRESENT: full ROM. ABSENT: calf tenderness, clubbing, pedal edema Neurological exam: PRESENT: alert, awake, oriented to person, oriented to place, oriented to time, oriented to situation, CN II-XII grossly intact. ABSENT: motor sensory deficit Psychiatric exam: PRESENT: appropriate affect, normal mood. ABSENT: homicidal ideation, suicidal ideation Skin exam: PRESENT: dry, intact, warm. ABSENT: cyanosis, rash Results Laboratory Results: 01/11/20 06:00 01/12/20 06:06 01/11/20 01/11/20 01/12/20 18:50 20:08 06:06 Sodium 130.0 L 128.1 L Potassium 4.3 4.8 Chloride 103 103 Carbon Dioxide 14 L 11 L Anion Gap 13 14 BUN 23 H 29 H Creatinine 2.95 H 3.81 H Est GFR ( Amer) 23 L 17 L Glucose 194 H 166 H Calcium 6.9 L* 6.8 L* Magnesium 2.3 Total Bilirubin 2.1 H AST 1580 H Alkaline Phosphatase 415 H Ammonia 21.4 Total Protein 5.5 L Albumin 2.4 L Triglycerides 677 H 01/06/20 05:27 Creatine Kinase 300 H Impressions: Abdomen/Pelvis CT 01/04/20 00:00 IMPRESSION: Acute pancreatitis without evidence of pseudocyst. Chest X-Ray 01/07/20 00:00 IMPRESSION: Ill-defined airspace opacity in the right lung base. In the setting of low lung volumes, this may represent atelectasis. However, an infec tious process such as pneumonia or a viral process is difficult to exclude. If clinically feasible, consider an upright PA and lateral chest x-ray for further characterization. PICC Line Insertion 01/07/20 00:00 IMPRESSION: SUCCESSFUL PLACEMENT OF A 5 FR DUAL LUMEN 39 CM PICC IN THE RIGHT BRACHIOCEPHALIC VEIN. KUB X-Ray 01/07/20 05:44 IMPRESSION: Nonspecific nonobstructive bowel gas pattern. Abdomen Ultrasound 01/11/20 00:00 IMPRESSION: 1. Hepatic steatosis. There is a hypoechoic lesion in the right lobe and measures 8.1 x 5.7 x 3.[address] scan done on 01/04/2020 this area is seen as an area of focal fatty sparing. 2. Slight thickening of the gallbladder wall but no other indication of cho lecystitis. There are no gallstones. There is no pericholecystic fluid. 3. The pancreas was obscured by gas. No abnormal fluid collection was seen to suggest the presence of a pseudocyst. Assessment & Plan - Diagnosis (1) Coagulopathy Is this a current diagnosis for this admission?: Yes Plan: Likely induced by liver dysfunction, would recommend initiation of vitamin K 5 mg daily. Over time will correct once the underlying condition is improved but may take some time for underlying condition to improve. (2) Lesion of liver greater than 1 cm in diameter Is this a current diagnosis for this admission?: Yes Plan: Likely area of fat necrosis, CT negative for true mass there, unlikely related to cancer. - Time Time Spent: 50 to 70 Minutes
[2020-01-12] MEDS: DULOXETINE HCL 30 MG CAPSULE.DR PO SCH (09:35)
[2020-01-12] MEDS: OMEGA-3 ACID ETHYL ESTERS 1 GM CAPSULE PO SCH (09:36)
[2020-01-12] MEDS: FENOFIBRATE NANOCRYSTALLIZED 145 MG TABLET PO SCH (09:36)
[2020-01-12] MEDS: INSULIN LISPRO 100 UNIT/ML 3 ML VIAL SUBCUT SCH ×5 (09:38→21:12)
[2020-01-12] MEDS: NORMAL SALINE 10 ML SDV (SCHEDULED) IV SCH ×2 (09:39→21:13)
--- NOTE | 2020-01-12 12:36 | Progress Note ---
Provider Note Provider Note: spoke with Hospitalist ultrasound reviewed and not noted to have CBD dilation increasing WBC, along with worsening coagulation profile, decrease synthetic function as noted by labs patient's LFT are worsening as well ? possible acute liver failure will need stat transfer tertiary care center for Heptalogy unit
[2020-01-12 12:48] LABS: ARTERIAL BLOOD BASE EXCESS -15.9 mmol/L; ARTERIAL BLOOD FIO2 2 L; ARTERIAL BLOOD H2CO3 0.69 mmol/L (1.05-1.35); ARTERIAL BLOOD HCO3 9.7 mmol/L (20-24); ARTERIAL BLOOD O2 SATURATION 93.9 % (94-98); ARTERIAL BLOOD PH 7.24 (7.35-7.45); ARTERIAL BLOOD PO2 78.7 mmHg (80-100); ARTERIAL BLOOD TOTAL CO2 10.4 mmol/L (21-25)
--- NOTE | 2020-01-12 13:10 | Progress Note ---
Provider Note Provider Note: Notified by the nursing staff that the patient began to have episodes of nonsustained VT. I personally reviewed her cardiac telemetry which confirms the presence of multiple episodes of nonsustained ventricular tachycardia in the setting of worsening liver failure as well as renal failure. The patient is in the process of being transferred for possible liver transplant. The cardiac management of her dysrhythmia is complicated given her liver and renal failure. Currently the patient is hemodynamically stable although her blood pressure is on the low side which is actually not new for her. Further review of her telemetry shows no further episodes of V. tach. Given that she is hemodynamically stable and without recurrence of the ventricular dysrhythmia I recommend to continue telemetry without any particular cardiovascular intervention at this point. If her ventricular tachycardia recurs recommend the use of either esmolol drip as tolerated by her blood pressure versus lidocaine even though the latter is not completely ideal in the setting of liver failure but at least will stabilize her on that she can get definitive treatment. The case was discussed with Dr. Malick Culver, preschool substitute teacher at [facility].
--- NOTE | 2020-01-12 14:10 | RADIOLOGY REPORT (SQ) ---
EXAM DESCRIPTION: KUB/ABDOMEN (SINGLE VIEW) IMAGES COMPLETED DATE/TIME: 01/12/2020 1:55 pm REASON FOR STUDY: abdominal distension COMPARISON: None. NUMBER OF VIEWS: One view. TECHNIQUE: Supine radiographic image of the abdomen acquired. LIMITATIONS: None. FINDINGS: BOWEL GAS PATTERN: There is a paucity of gas. The loops demonstrated appear nondistended. CALCIFICATIONS: No suspicious calcifications. SOFT TISSUES: Rather uniform appearing hazy opacification in the setting of bulging flanks and subcut aneous fat stranding suggests ascites. HARDWARE: None in the abdomen. BONES: No acute fracture. No worrisome bone lesions. OTHER: No other significant finding. IMPRESSION: Nonspecific, nonobstructed bowel gas pattern. Likely ascites. TECHNICAL DOCUMENTATION: JOB ID: [id number] 2010 [employer]- All Rights Reserved Reading location - IP/workstation name: [email or web address]
[2020-01-12] MEDS ORDERED: DEXTROSE 5%-WATER 1000 ML 1,000 ML with SODIUM BICARBONATE 150 MEQ IV PRN ×2 (14:30)
[2020-01-12 14:43] LABS: HEMATOCRIT 32.5 % (36.0-47.0); HEMOGLOBIN 10.8 g/dL (12.0-15.5); MEAN CORPUSCULAR HEMOGLOBIN 30.1 pg (27.0-33.4); MEAN CORPUSCULAR HGB CONC 33.1 g/dL (32.0-36.0); MEAN CORPUSCULAR VOLUME 91 fl (80-97); PLATELET COUNT 177 10^3/uL (150-450); RED BLOOD COUNT 3.57 10^6/uL (3.72-5.28); RED CELL DISTRIBUTION WIDTH 17.4 % (11.5-14.0); WHITE BLOOD COUNT 22.5 10^3/uL (4.0-10.5)
[2020-01-12] MEDS: ALBUMIN HUMAN 12.5 GM/50 ML RTUINJ IV SCH ×2 (17:15→17:55)
--- NOTE | 2020-01-12 19:12 | PDOC PROGRESS REPORT ---
Subjective Progress Note for:: 01/12/20 Subjective:: She does not feel well. Creatinine worsened, transaminases have gone higher, INR has gone higher, bilirubin has gone higher. She was tachypneic. Her ABG shows a metabolic acidosis with respiratory compensation. Her abdomen became much more distended today. We got a paracentesis with over 2 L of very dark fluid off. She passed a little bit of blood in her stool but her hemoglobin has been stable. In conjunction with Dr. Sinclair, who had been following this patient for the past several days, the case was discussed with a hospitalist and loading inspector at [facility], who wanted to bring the patient in via transfer. Sometime later I received a phone call that said that this case was under "administrative review "by [facility] administration. I called back sometime afterwards and was told that the case was still under review. I received a call hours later that the hospital administration at [facility] would like for me to see if the patient could be transferred to a transplant facility in the patient's home state. I immediately contacted [facility] in [place], because the patient is a [place] resident. Because her condition has deteriorated over the course of the day, it was agreed that the patient needs to be in intensive care unit closer to this facility due to the high likelihood of further deterioration during transfer, and [facility] is twice as far from here as [facility]. I called back to [facility] and am currently awaiting a return call from their clinical informatics educator. Reason For Visit: ACUTE PANCREATITIS,ABDOMINAL PAIN,HYPERGLYCEMIA Physical Exam Vital Signs: Temp Pulse Resp BP Pulse Ox 97.5 F 102 H 30 H 91/54 L 100 01/12/20 15:59 01/12/20 18:01 01/12/20 15:59 01/12/20 18:01 01/12/20 15:59 Intake & Output 01/11/20 01/12/20 01/13/20 06:59 06:59 06:59 Intake Total 470 1811 283 Output Total 300 200 Balance 170 1611 283 Weight 84.5 kg 89 kg General appearance: PRESENT: cooperative, disheveled, obese, severe distress, ot her - Fetor hepaticus Eye exam: PRESENT: EOMI, PERRLA. ABSENT: conjunctival injection, nystagmus, scleral icterus Respiratory exam: PRESENT: decreased breath sounds, symmetrical, tachypnea. ABSENT: accessory muscle use, chest wall tenderness, crackles, prolonged expiratory phas, retraction, rhonchi, unlabored, wheezes Cardiovascular exam: PRESENT: +S1, +S2, tachycardia, other - She has had episodic runs of what looks like a ventricular tachycardia on telemetry Pulses: PRESENT: other - Carotid pulses are palpable, radial pulses are palpable Vascular exam: PRESENT: normal capillary refill - A bit delayed GI/Abdominal exam: PRESENT: ascites, distended, firm, hypoactive bowel sounds, tenderness. ABSENT: guarding, rebound, rigid Rectal exam: PRESENT: bloody stool Extremities exam: PRESENT: pedal edema, +1 edema. ABSENT: clubbing Musculoskeletal exam: PRESENT: normal inspection. ABSENT: deformity Neurological exam: PRESENT: awake, oriented to person, oriented to place, oriented to situation Psychiatric exam: PRESENT: flat affect Skin exam: PRESENT: dry, jaundice, warm Results Laboratory Results: 01/12/20 14:30 01/12/20 06:06 01/11/20 01/11/20 01/12/20 18:50 20:08 06:06 WBC RBC Hgb Hct MCV MCH MCHC RDW Plt Count Carbonic Acid HCO3/H2CO3 Ratio ABG pH ABG pCO2 ABG pO2 ABG HCO3 ABG O2 Saturation ABG Base Excess FiO2 Sodium 130.0 L 128.1 L Potassium 4.3 4.8 Chloride 103 103 Carbon Dioxide 14 L 11 L Anion Gap 13 14 BUN 23 H 29 H Creatinine 2.95 H 3.81 H Est GFR ( Amer) 23 L 17 L Glucose 194 H 166 H Calcium 6.9 L* 6.8 L* Magnesium 2.3 Total Bilirubin 2.1 H AST 1580 H Alkaline Phosphatase 415 H Ammonia 21.4 Total Protein 5.5 L Albumin 2.4 L Triglycerides 677 H 01/12/20 01/12/20 01/12/20 12:40 12:40 14:30 WBC 22.5 H RBC 3.57 L Hgb 10.8 L Hct 32.5 L MCV 91 MCH 30.1 MCHC 33.1 RDW 17.4 H Plt Count 177 Carbonic Acid 0.69 L HCO3/H2CO3 Ratio 14:1 ABG pH 7.24 L ABG pCO2 23.0 L ABG pO2 78.7 L ABG HCO3 9.7 L ABG O2 Saturation 93.9 L ABG Base Excess -15.9 FiO2 2 L Sodium Potassium Chloride Carbon Dioxide Anion Gap BUN Creatinine Est GFR ( Amer) Glucose Calcium Magnesium 2.4 H Total Bilirubin AST Alkaline Phosphatase Ammonia Total Protein Albumin Triglycerides 01/06/20 01/12/20 05:27 16:15 Creatine Kinase 300 H Troponin I 0.086 Impressions: Abdomen/Pelvis CT 01/04/20 00:00 IMPRESSION: Acute pancreatitis without evidence of pseudocyst. Chest X-Ray 01/07/20 00:00 IMPRESSION: Ill-defined airspace opacity in the right lung base. In the setting of low lung volumes, this may represent atelectasis. However, an infectious process such as pneumonia or a viral process is difficult to exclude. If clinically feasible, consider an upright PA and lateral chest x-ray for further characterization. PICC Line Insertion 01/07/20 00:00 IMPRESSION: SUCCESSFUL PLACEMENT OF A 5 FR DUAL LUMEN 39 CM PICC IN THE RIGHT BRACHIOCEPHALIC VEIN. Abdomen Ultrasound 01/11/20 00:00 IMPRESSION: 1. Hepatic steatosis. There is a hypoechoic lesion in the right lobe and measures 8.1 x 5.7 x 3.[address] scan done on 01/04/2020 this area is seen as an area of focal fatty sparing. 2. Slight thickening of the gallbladder wall but no other indication of cholecystitis. There are no gallstones. There is no pericholecystic fluid. 3. The pancreas was obscured by gas. No abnormal fluid collection was seen to suggest the presence of a pseudocyst. KUB X-Ray 01/12/20 00:00 IMPRESSION: Nonspecific, nonobstructed bowel gas pattern. Likely ascites. Assessment and Plan - Diagnosis (1) Acute liver failure Qualifiers: Hepatic coma status: without hepatic coma Qualified Code(s): K72.00 - Acute and subacute hepatic failure without coma Is this a current diagnosis for this admission?: Yes Plan: Her INR, bilirubin, transaminases, and alkaline phosphatase are all trending up. Fortunately, her ammonia level has not trended up yet. We are monitoring her closely for mental status changes. Transfer to a transplant center currently pending. (2) GEORGE (acute kidney injury) Is this a current diagnosis for this admission?: Yes Plan: She has had some urine output but we have not been able to measure it accurately, but it is suspected that it is not proportional to the amount of fluid she has been getting. She could be progressing towards the need for hemodialysis. This is likely related to her liver failure. Currently awaiting transfer as previously noted. (3) Ascites Qualifiers: Ascites type: other type Qualified Code(s): R18.8 - Other ascites Is this a current diagnosis for this admission?: Yes Plan: Due to her liver failure and likely her kidney failure as well. He had a paracentesis done, approximately 2 L were taken off unofficial report. Fluid studies are pending. (4) Hypotension Qualifiers: Hypotension type: hypotension due to hypovolemia Qualified Code(s): I95.89 - Other hypotension; E86.1 - Hypovolemia Is this a current diagnosis for this admission?: Yes Plan: She has been third spacing a lot of her fluid. We have her on continuous fluids with intermittent boluses to help bring her pressure up. She may need pressors before she is transferred. I have already discussed this case with our ICU in case she requires transfer there before she leaves this facility. There is a high probability of this. (5) Acute pancreatitis Qualifiers: Pancreatitis type: other Acute pancreatitis complication: no infection or necrosis Qualified Code(s): K85.80 - Other acute pancreatitis without necrosis or infection Is this a current diagnosis for this admission?: Yes Plan: Due to hypertriglyceridemia. Lipase has returned to normal. Her TriCor and statin were discontinued because of her liver dysfunction. (6) Hypercholesterolemia Is this a current diagnosis for this admission?: Yes Plan: Statin discontinued due to liver dysfunction (7) Hypertriglyceridemia Is this a current diagnosis for this admission?: Yes Plan: TriCor discontinued due to liver dysfunction (8) Hypocalcemia Is this a current diagnosis for this admission?: Yes Plan: Ionized calcium was essentially normal. This was especially a problem earlier on in her hospitalization. (9) Lesion of liver greater than 1 cm in diameter Is this a current diagnosis for this admission?: Yes (10) Metabolic acidosis Is this a current diagnosis for this admission?: Yes Plan: She had decent respiratory compensation early, but I was concerned that she would not be able to keep this up very long, so I started her on a bicarbonate infusion. (11) New onset type 2 diabetes mellitus Is this a current diagnosis for this admission?: Yes Plan: Hemoglobin A1c of 8.9 on admission. No prior history. Metformin and glipizide were discontinued in favor of a sliding scale given her renal dysfunction. - Time Time Spent with patient: 35 or more minutes
--- NOTE | 2020-01-12 19:46 | PDOC TRANSFER SUMMARY ---
General Admission Date/PCP: 01/04/20 22:52 Admission Date: 01/04/20 Transfer Date: 01/12/20 Accepting Facility: [place] Accepting Physician: Dr. Carmencita Johnson Resuscitation Status: Full Code - Transfer Diagnosis (1) Acute liver failure Is this a current diagnosis for this admission?: Yes (2) GEORGE (acute kidney injury) Is this a current diagnosis for this admission?: Yes (3) Ascites Is this a current diagnosis for this admission?: Yes (4) Hypotension Is this a current diagnosis for this admission?: Yes (5) Acute pancreatitis Is this a current diagnosis for this admission?: Yes (6) Hypercholesterolemia Is this a current diagnosis for this admission?: Yes (7) Hypertriglyceridemia Is this a current diagnosis for this admission?: Yes (8) Hypocalcemia Is this a current diagnosis for this admission?: Yes (9) Lesion of liver greater than 1 cm in diameter Is this a current diagnosis for this admission?: Yes (10) Metabolic acidosis Is this a current diagnosis for this admission?: Yes (11) New onset type 2 diabetes mellitus Is this a current diagnosis for this admission?: Yes - Transfer Medications Home Medications: Dextroamphetamine/Amphetamine [Dextroamp-Amphetamin 20 mg Tab] 20 mg PO TIDP PRN 01/05/20 Dicyclomine HCl [Bentyl 20 mg Tablet] 20 mg PO QIDP PRN 01/05/20 Duloxetine HCl [Cymbalta] 60 mg PO DAILY 01/05/20 Ondansetron [Zofran Odt 4 mg Tablet] 4 mg PO Q6HP PRN 01/05/20 Quetiapine Fumarate [Seroquel 25 mg Tablet] 25 mg PO HSP PRN 01/05/20 l-Norgest/E.estradiol-E.estrad [Levonor-E Estrad 0.1-0.02-0.01] 1 tab PO DAILY 01/05/20 Transfer Medications: Current Medications Acetaminophen (Tylenol 325 Mg Tablet) 650 mg PO Q4HP PRN PRN Reason: FOR PAIN SCALE 1-3 Stop: 02/08/20 10:26 Al Hydrox/Mg Hydrox/Simethicone (Maalox Plus Susp 30 Udcup) 30 ml PO Q6HP PRN PRN Reason: HEARTBURN Stop: 02/03/20 22:54 Albuterol/Ipratropium (Duoneb 3 Ml Ampul) 3 ml NEB RTQ4HP PRN PRN Reason: WHEEZING Stop: 02/05/20 23:08 Last Admin: 01/12/20 14:57 Dose: 3 ml Documented by: Dextrose (Dextrose Inj 50% Syringe (25 Gm/50 Ml)) 12.5 gm IV PRN PRN; Protocol PRN Reason: FOR BG 50-69 IN ALERT PATIENT Stop: 02/03/20 23:02 Last Admin: 01/08/20 03:22 Dose: 12.5 gm Documented by: Dextrose (Dextrose Inj 50% Syringe (25 Gm/50 Ml)) 25 gm IV PRN PRN; Protocol PRN Reason: PER PROTOCOL Stop: 02/03/20 23:02 Dicyclomine HCl (Bentyl 20 Mg Tablet) 20 mg PO QIDP PRN PRN Reason: FOR STOMACH CRAMPS Stop: 02/04/20 14:43 Last Admin: 01/10/20 21:27 Dose: 20 mg Documented by: Duloxetine HCl (Cymbalta 30 Mg Capsule.Dr) 60 mg PO DAILY [facility] Stop: 02/05/20 09:59 Last Admin: 01/12/20 09:35 Dose: 60 mg Documented by: Glipizide (Glucotrol 5 Mg Tablet) 5 mg PO BIDACBS [facility] Stop: 02/08/20 10:59 Last Admin: 01/11/20 11:16 Dose: 5 mg Documented by: Glucagon (Glucagen Inj 1 Mg Vial) 1 mg IM PRN PRN; Protocol PRN Reason: Evaluate for BG < 70 Stop: 02/03/20 23:02 Glucose (Glutose 40% Gel 15 Gm Tube) 15 gm PO PRN PRN; Protocol PRN Reason: FOR BG 50-69 IN ALERT PATIENT Stop: 02/03/20 23:02 Glucose (Glutose 40% Gel 15 Gm Tube) 30 gm PO PRN PRN; Protocol PRN Reason: FOR BG < 50 IN ALERT PATIENT Stop: 02/03/20 23:02 Guaifenesin (Robitussin Syrup 200 Mg/10 Ml Ud Cup) 200 mg PO Q4HP PRN PRN Reason: COUGH Stop: 02/03/20 22:59 Heparin Sodium (Porcine) (Heparin Inj 5,000 Units/Ml 1 Ml Vial) 5,000 unit SUBCUT Q8 [facility] Stop: 02/04/20 05:59 Last Admin: 01/11/20 16:07 Dose: Not Given Documented by: Heparin Sodium (Porcine) (Heparin Flush 10 Unit/Ml 5 Ml Disp.Syrg) 30 unit IV Q12 [facility] Stop: 02/06/20 21:59 Last Admin: 01/12/20 09:39 Dose: 30 unit Documented by: Heparin Sodium (Porcine) (Heparin Flush 10 Unit/Ml 5 Ml Disp.Syrg) 30 unit IV .AFTER EACH USE PRN Stop: 02/06/20 16:59 Last Admin: 01/10/20 21:28 Dose: 30 unit Documented by: Hydralazine HCl (Apresoline Inj/Pf 20 Mg/1 Ml Sdv) 20 mg IV Q4HP PRN PRN Reason: Give For Sbp > 160 / Dbp > 100 Stop: 02/03/20 22:59 Last Admin: 01/07/20 03:53 Dose: 20 mg Documented by: Sodium Bicarbonate 150 meq/ (Dextrose) 1,150 mls @ 100 mls/hr IV CONTINUOUS PRN PRN Reason: THIS MED IS NOT "PRN" Stop: 02/11/20 14:29 Last Admin: 01/12/20 14:47 Dose: 100 ml/hr, 100 mls/hr Documented by: Albumin Human (Albuminar-25 Rtu Inj 12.5 Gm/50 Ml Premix) 12.5 gm in 50 mls @ 50 mls/hr IV Q1H [facility] Stop: 01/12/20 19:44 Last Admin: 01/12/20 17:55 Dose: 50 ml/hr, 50 mls/hr Documented by: Insulin Human Lispro (Humalog Insulin 100 Unit/1 Ml 3 Ml Vial) 0 - 12 unit SUBCUT [facility]; Protocol Stop: 02/08/20 10:59 Last Admin: 01/12/20 17:59 Dose: 4 unit Documented by: Magnesium Hydroxide (Milk Of Magnesia 30 Ml Udcup) 30 ml PO HSP PRN PRN Reason: FOR CONSTIPATION Stop: 02/03/20 22:54 Metformin HCl (Glucophage 500 Mg Tablet) 500 mg PO BIDACBS [facility] Stop: 02/08/20 10:59 Last Admin: 01/11/20 11:15 Dose: 500 mg Documented by: Metoprolol Tartrate (Lopressor Inj/Pf 5 Mg/5 Ml Sdv) 5 mg IV Q6HP PRN PRN Reason: GIVE FOR HR > [] Stop: 02/09/20 20:53 Metoprolol Tartrate (Lopressor 100 Mg Tablet) 50 mg PO Q6 [facility] Stop: 02/10/20 00:00 Last Admin: 01/12/20 17:47 Dose: Not Given Documented by: [id number] Ethyl Esters (Lovaza 1 Gm Capsule) 1 gm PO DAILY [facility] Stop: 02/09/20 09:59 Last Admin: 01/12/20 09:36 Dose: 1 gm Documented by: Ondansetron HCl (Zofran Inj/Pf 4 Mg/2 Ml Sdv) 4 mg IV Q6HP PRN PRN Reason: FOR NAUSEA/VOMITING Stop: 02/04/20 15:20 Oxycodone/Acetaminophen (Percocet 5-325 Mg Tablet) 1 tab PO Q4HP PRN PRN Reason: FOR BREAKTHROUGH PAIN Stop: 01/16/20 10:17 Last Admin: 01/12/20 03:46 Dose: 1 tab Documented by: Promethazine HCl (Phenergan Inj 25 Mg/1 Ml Vial) 12.5 mg IV Q4HP PRN PRN Reason: FOR NAUSEA/VOMITING Stop: 02/03/20 22:54 Sodium Chloride (Saline Flush 2.5 Ml Monoject Prefil Syrin) 2.5 ml IV Q8 [facility] Stop: 02/04/20 05:59 Last Admin: 01/12/20 17:46 Dose: Not Given Documented by: Sodium Chloride (Nacl 0.9% Inj/Pf 10 Ml Sdv) 10 ml IV Q12 [facility] Stop: 02/06/20 21:59 Last Admin: 01/12/20 09:39 Dose: 10 ml Documented by: Sodium Chloride (Nacl 0.9% Inj/Pf 10 Ml Sdv) 10 ml IV .AFTER EACH USE PRN Stop: 02/06/20 16:59 Last Admin: 01/07/20 22:04 Dose: 10 ml Documented by: - Allergies Allergies/Adverse Reactions: acetaminophen [From Vicodin] Allergy (Intermediate, Verified 01/05/20 08:46) Hives hydrocodone [From Vicodin] Allergy (Intermediate, Verified 01/05/20 08:46) Hives - Diet/Activity Discharge Diet: As Tolerated Hospital Course Hospital Course: Per H&P: "PAVITHRA KRONVALL is a 29 year old female who presents the emergency room with a one-day history of abdominal pain. She admits to the abrupt onset of a moderate to severely intense constant sharp and stabbing generalized abdominal pain worse in the upper abdomen beginning 01/03/2020. Her abdominal pain has been accompanied by nausea and vomiting and associated with anorexia. Her pain is exacerbated by attempts at oral intake of food or fluids other than water. She denies other associated or accompanying signs and symptoms. She denies prior similar episodes. She has not identified any additional aggravating or ameliorating factors for her abdominal pain. In the emergency room she was found to have an elevated serum lipase and was also noted to have a fully comp ensated metabolic acidosis with ketosis and elevated blood sugar. She was subsequently admitted to the hospital for further evaluation treatment." Her triglycerides were measured at 9861 on admission. She has no known history of hypertriglyceridemia, nor of any familial syndrome. She was treated with copious IV fluids, insulin drip, and electrolyte replacement. Her calcium was very low and required multiple episodes of IV replacement. Her most recent ionized calcium was 1.1. Triglycerides have trended down into the 600s. She was started on TriCor on 01/08/2020 but that has been discontinued due to her liver function, along with her atorvastatin that was started on 01/10/2020. Regarding her new onset diabetes with a hemoglobin A1c of 8.9%, she responded very well to insulin, and due to her financial concerns was started on metformin and glipizide. These have also been held because of the deterioration in her renal function and she is now on a as needed sliding scale. Her transaminases were initially normal, but after several days started to slowly increase. There began a steeper increase in her transaminases, particularly her AST, a couple of days ago. They were approximately 1000 yesterday, and her AST this morning was 1580. Alkaline phosphatase is also elevated and was 487 today. Bilirubin has trended up and is 2.1 today. 2 days ago and INR was checked and was 1.66. It was 1.7 yesterday and 1.82 today. Her ammonia level was 21. Ultrasound of the liver was negative for gallstones. The gallbladder wall was not thickened. There was no evidence of any dilated ducts. There was an area on the liver that was noted to be abnormal and was thought to be an area of fat necrosis. Oncology was consulted and did not think that it was a mass. Her renal function has been normal for the first 6 days of her hospitalization. Yesterday morning her creatinine jumped to 2.02. This morning it had increased further up to 3.81. Her urine output was initially very good but has dropped off some over the last couple of days, but it has been difficult to accurately m easure. For this reason we put in a Villalta catheter this afternoon. She had a sudden increase in abdominal distention today. Based on the notes of prior examinations, she did not have any substantial distention. She had bowel sounds on examination, and plain film of the abdomen showed a nonobstructive bowel pattern. Examination was consistent with ascites, and because she was having worsening shortness of breath it was felt that at least part of it was due to the increase in abdominal fluid. Ultrasound-guided paracentesis got approximately 2 L of fluid off. It was noted to be very dark and has been sent for studies which are pending at time of dictation. Because of her shortness of breath and because her CO2 on her basic metabolic panel was 11, an ABG was obtained. This showed a pH of 7.2, a PCO2 of 21, and a bicarbonate of 8. It was felt that this was a metabolic acidosis with respiratory compensation. Because she seemed to have impending loss of ability to compensate, a bicarbonate infusion has been started. Her blood pressure dropped today. She typically has run in the 90s to low 100s systolic during this hospitalization. Today her blood pressure dropped to 70/41. She has required repeat fluid boluses and currently her systolic is in the 80s and diastolic in the 50s on serial checks. I pick this patient up this morning and when reviewing her labs I called Dr. Gotti, her alarm investigator who had been consulted on this case. After brief discussion it was decided that it was in the patient's best interest to be transferred to a transplant center. After a series of [id number] discussions, the patient has been accepted at [facility]. She will be accepted to their medical intensive care unit. The accepting physician is Dr. Carmencita Johnson. Transfer arrangement details are being finalized at time of dictation. Physical Exam Vital Signs: Temp Pulse Resp BP Pulse Ox 97.5 F 105 H 30 H 91/54 L 100 06/24/20 15:59 01/12/20 19:00 01/12/20 15:59 01/12/20 18:01 01/12/20 15:59 Intake & Output 01/11/20 01/12/20 01/13/20 06:59 06:59 06:59 Intake Total 470 1811 283 Output Total 300 200 Balance 170 1611 283 Weight 84.5 kg 89 kg General appearance: PRESENT: cooperative, disheveled, obese, severe distress, other - Fetor hepaticus Eye exam: PRESENT: EOMI, PERRLA. ABSENT: conjunctival injection, nystagmus, scleral icterus Respiratory exam: PRESENT: decreased breath sounds, symmetrical, tachypnea. ABSENT: accessory muscle use, chest wall tenderness, crackles, prolonged expiratory phas, retraction, rhonchi, unlabored, wheezes Cardiovascular exam: PRESENT: +S1, +S2, tachycardia, other - She has had episodic runs of what looks like a ventricular tachycardia on telemetry Pulses: PRESENT: other - Carotid pulses are palpable, radial pulses are palpable Vascular exam: PRESENT: normal capillary refill - A bit delayed GI/Abdominal exam: PRESENT: ascites, distended, firm, hypoactive bowel sounds, tenderness. ABSENT: guarding, rebound, rigid Rectal exam: PRESENT: bloody stool Extremities exam: PRESENT: pedal edema, +1 edema. ABSENT: clubbing Musculoskeletal exam: PRESENT: normal inspection. ABSENT: deformity Neurological exam: PRESENT: awake, oriented to person, oriented to place, oriented to situation Psychiatric exam: PRESENT: flat affect Skin exam: PRESENT: dry, jaundice, warm Results Laboratory Results: 01/12/20 14:30 01/12/20 06:06 01/11/20 01/11/20 01/12/20 18:50 20:08 06:06 WBC RBC Hgb Hct MCV MCH MCHC RDW Plt Count Carbonic Acid HCO3/H2CO3 Ratio ABG pH ABG pCO2 ABG pO2 ABG HCO3 ABG O2 Saturation ABG Base Excess FiO2 Sodium 130.0 L 128.1 L Potassium 4.3 4.8 Chloride 103 103 Carbon Dioxide 14 L 11 L Anion Gap 13 14 BUN 23 H 29 H Creatinine 2.95 H 3.81 H Est GFR ( Amer) 23 L 17 L Glucose 194 H 166 H Calcium 6.9 L* 6.8 L* Magnesium 2.3 Total Bilirubin 2.1 H AST 1580 H Alkaline Phosphatase 415 H Ammonia 21.4 Total Protein 5.5 L Albumin 2.4 L Triglycerides 677 H 01/12/20 01/12/20 01/12/20 12:40 12:40 14:30 WBC 22.5 H RBC 3.57 L Hgb 10.8 L Hct 32.5 L MCV 91 MCH 30.1 MCHC 33.1 RDW 17.4 H Plt Count 177 Carbonic Acid 0.69 L HCO3/H2CO3 Ratio 14:1 ABG pH 7.24 L ABG pCO2 23.0 L ABG pO2 78.7 L ABG HCO3 9.7 L ABG O2 Saturation 93.9 L ABG Base Excess -15.9 FiO2 2 L Sodium Potassium Chloride Carbon Dioxide Anion Gap BUN Creatinine Est GFR ( Amer) Glucose Calcium Magnesium 2.4 H Total Bilirubin AST Alkaline Phosphatase Ammonia Total Protein Albumin Triglycerides 01/06/20 01/12/20 05:27 16:15 Creatine Kinase 300 H Troponin I 0.086 Impressions: Abdomen/Pelvis CT 01/04/20 00:00 IMPRESSION: Acute pancreatitis without evidence of pseudocyst. Chest X-Ray 01/07/20 00:00 IMPRESSION: Ill-defined airspace opacity in the right lung base. In the setting of low lung volumes, this may represent atelectasis. However, an infectious process such as pneumonia or a viral process is difficult to exclude. If clinically feasible, consider an upright PA and lateral chest x-ray for further characterization. PICC Line Insertion 01/07/20 00:00 IMPRESSION: SUCCESSFUL PLACEMENT OF A 5 FR DUAL LUMEN 39 CM PICC IN THE RIGHT BRACHIOCEPHALIC VEIN. Abdomen Ultrasound 01/11/20 00:00 IMPRESSION: 1. Hepatic steatosis. There is a hypoechoic lesion in the right lobe and measures 8.1 x 5.7 x 3.[address] scan done on 01/04/2020 this area is seen as an area of focal fatty sparing. 2. Slight thickening of the gallbladder wall but no other indication of cholecystitis. There are no gallstones. There is no pericholecystic fluid. 3. The pancreas was obscured by gas. No abnormal fluid collection was seen to suggest the presence of a pseudocyst. KUB X-Ray 01/12/20 00:00 IMPRESSION: Nonspecific, nonobstructed bowel gas pattern. Likely ascites. Plan Time Spent: Greater than 30 Minutes
[2020-01-12] MEDS ORDERED: MIDODRINE HCL 5 MG TABLET PO ONE (21:00)
[2020-01-12] MEDS ORDERED: LEVALBUTEROL HCL NEB 1.25 MG/3 ML AMPUL NEB ONE (21:30)
--- NOTE | 2020-01-12 23:19 | PDOC CRITICAL CARE PROG REPORT ---
General Date:: 01/12/20 ICU Day:: 1 Resuscitation Status: Full Code Events in the past 12 to 24 Hours:: PAVITHRA BOSS is a 29 year old female admitted with new-onset DM, GEORGE, and concern for acute hepatic failure whom is awaiting air medical transport [facility] a higher level of care, accepted by Dr Carmenctia Johnson. Patient will be admitted to MICU at [facility] and it was decided that Mrs Boss be transferred to ICU monitoring for further hemodynamic instability after hypotension requiring multiple liters of fluids on the medical palma as well as monitoring for respiratory deterioration. See transfer summary from Dr Grewal for further details of hospital course. Reason for ICU Addmission:: Hemodynamic instability, moderate risk of respiratory compromise - Medications: Medications reviewed and adjusted accordingly: Yes Vasopressors:: None required at this time. Sedation:: None Physical Exam Vital Signs: Temp Pulse Resp BP Pulse Ox 97.5 F 105 H 30 H 91/54 L 100 01/12/20 15:59 01/12/20 19:00 01/12/20 15:59 01/12/20 18:01 01/12/20 15:59 Intake & Output 01/11/20 01/12/20 01/13/20 06:59 06:59 06:59 Intake Total 470 1811 283 Output Total 300 200 Balance 170 1611 283 Weight 84.5 kg 89 kg Weight/Height Weight 89 kg Height 5 ft General appearance: PRESENT: cooperative, mild distress, obese Head exam: PRESENT: atraumatic, normocephalic Eye exam: PRESENT: conjunctiva pink, EOMI, PERRLA. ABSENT: nystagmus, periorbital swelling, scleral icterus Ear exam: PRESENT: normal external ear exam Mouth exam: PRESENT: moist, neck supple, tongue midline Neck exam: PRESENT: full ROM. ABSENT: JVD, lymphadenopathy, tracheal deviation Respiratory exam: PRESENT: accessory muscle use - mildly labored, symmetrical, tachypnea, wheezes - faint inspiratory wheeze all lung sutton; however, adequate air movement to bases upon auscultation Cardiovascular exam: PRESENT: +S1, +S2, tachycardia. ABSENT: gallop, rubs, syst olic murmur Pulses: PRESENT: other - doppler signals only to bilateral radial, DP, and PT arteries Vascular exam: PRESENT: other - Capillary refill prolonged at 4-5 seconds GI/Abdominal exam: PRESENT: ascites, distended, soft, tenderness Rectal exam: PRESENT: deferred Gentrourinary exam: PRESENT: indwelling catheter Extremities exam: PRESENT: full ROM Musculoskeletal exam: PRESENT: full ROM. ABSENT: deformity, dislocation, tenderness Neurological exam: PRESENT: alert, awake, oriented to person, oriented to place, oriented to time, oriented to situation, CN II-XII grossly intact Psychiatric exam: PRESENT: appropriate affect Skin exam: PRESENT: dry, intact, jaundice, other - cool to touch Laboratory/Radiographs Laboratory Results: 01/12/20 14:30 01/12/20 06:06 01/11/20 01/12/20 01/12/20 20:08 06:06 12:40 WBC RBC Hgb Hct MCV MCH MCHC RDW Plt Count Carbonic Acid HCO3/H2CO3 Ratio ABG pH ABG pCO2 ABG pO2 ABG HCO3 ABG O2 Saturation ABG Base Excess FiO2 Sodium 128.1 L Potassium 4.8 Chloride 103 Carbon Dioxide 11 L Anion Gap 14 BUN 29 H Creatinine 3.81 H Est GFR ( Amer) 17 L Glucose 166 H Calcium 6.8 L* Magnesium 2.3 2.4 H Total Bilirubin 2.1 H AST 1580 H Alkaline Phosphatase 415 H Ammonia 21.4 Total Protein 5.5 L Albumin 2.4 L Triglycerides 677 H 01/12/20 01/12/20 12:40 14:30 WBC 22.5 H RBC 3.57 L Hgb 10.8 L Hct 32.5 L MCV 91 MCH 30.1 MCHC 33.1 RDW 17.4 H Plt Count 177 Carbonic Acid 0.69 L HCO3/H2CO3 Ratio 14:1 ABG pH 7.24 L ABG pCO2 23.0 L ABG pO2 78.7 L ABG HCO3 9.7 L ABG O2 Saturation 93.9 L ABG Base Excess -15.9 FiO2 2 L Sodium Potassium Chloride Carbon Dioxide Anion Gap BUN Creatinine Est GFR ( Amer) Glucose Calcium Magnesium Total Bilirubin AST Alkaline Phosphatase Ammonia Total Protein Albumin Triglycerides 01/06/20 01/12/20 05:27 16:15 Creatine Kinase 300 H Troponin I 0.086 Impressions: Abdomen/Pelvis CT 01/04/20 00:00 IMPRESSION: Acute pancreatitis without evidence of pseudocyst. Chest X-Ray 01/07/20 00:00 IMPRESSION: Ill-defined airspace opacity in the right lung base. In the setting of low lung volumes, this may represent atelectasis. However, an infectious process such as pneumonia or a viral process is difficult to exclude. If clinically feasible, consider an upright PA and lateral chest x-ray for further characterization. PICC Line Insertion 01/07/20 00:00 IMPRESSION: SUCCESSFUL PLACEMENT OF A 5 FR DUAL LUMEN 39 CM PICC IN THE RIGHT BRACHIOCEPHALIC VEIN. Abdomen Ultrasound 01/11/20 00:00 IMPRESSION: 1. Hepatic steatosis. There is a hypoechoic lesion in the right lobe and measures 8.1 x 5.7 x 3.[address] scan done on 01/04/2020 this area is seen as an area of focal fatty sparing. 2. Slight thickening of the gallbladder wall but no other indication of cholecystitis. There are no gallstones. There is no pericholecystic fluid. 3. The pancreas was obscured by gas. No abnormal fluid collection was seen to suggest the presence of a pseudocyst. KUB X-Ray 01/12/20 00:00 IMPRESSION: Nonspecific, nonobstructed bowel gas pattern. Likely ascites. All labs, radiographs, diagnostic studies and EKGs were personally reviewed: Yes Assessment and Plan - Diagnosis (1) Hypotension Qualifiers: Hypotension type: hypotension due to hypovolemia Qualified Code(s): I95.89 - Other hypotension; E86.1 - Hypovolemia Is this a current diagnosis for this admission?: Yes (2) Metabolic acidosis Is this a current diagnosis for this admission?: Yes (3) GEORGE (acute kidney injury) Is this a current diagnosis for this admission?: Yes (4) Acute liver failure Qualifiers: Hepatic coma status: without hepatic coma Qualified Code(s): K72.00 - Acute and subacute hepatic failure without coma Is this a current diagnosis for this admission?: Yes (5) Diabetes mellitus with hyperglycemia Qualifiers: Diabetes mellitus type: type 2 Diabetes mellitus rat exterminator insulin use: without rat exterminator use Qualified Code(s): E11.65 - Type 2 diabetes mellitus with hyperglycemia Is this a current diagnosis for this admission?: Yes Plan Summary: Monitor for further hemodynamic or respiratory compromise in ICU until medical transport occurs. Already has a PICC in place in case vasopressors are required. BP currently low normal and would like to ensure she remains hemodynamically stable during transport. Will administer PO Midodrine x1 and evaluate effect. Tachypnea compensating for metabolic acidemia, minimal work of breathing at this time. Continue sodium bicarb infusion as it sounds like this has significantly helped her work of breathing (due to respiratory compensation). Monitor for increased work of breathing. Hx asthma with faint inspiratory wheeze all lung sutton for which I will administer a nebulizer treatment. Continue pate for strict I&O in setting of GEORGE. Will repeat BMP if air transport does not arrive soon as I'm certain labs will be repeated upon arrival at [facility]. Patient not presently encephalopathic with a normal ammonia level, therefore, no intervention is required at this time. I personally did not discuss hepatic care with [facility], therefore, will not add any additional medications at this time. Continue ISS coverage AC & HS monitoring for hypoglycemia given liver failure. Critical Time Critical Time (minutes): 30 Level of Care: ICU Anticipated discharge: Other - transferring to [facility] when medical transport arranged Within: within 24 hours -: 1. The care of a critical patient is a dynamic process. This note is a media sales representative synopsis but static in nature. The timeframe for treatments given in order is not necessarily the actual time these treatments may have been done. 2. This patient requires critical care secondary to ongoing requirements for therapy not offered or safe outside the critical care environment. Transfer to a lower level of care will result in altered life or limb morbidity and mortality. 3. Multidisciplinary rounds completed. 4. ABCDE bundle addressed.
[2020-01-13] MEDS: IPRATROPIUM/ALBUTEROL 0.5-2.5 MG/3 ML AMPUL NEB PRN (00:46)
[2020-01-13 01:27] VITALS: BP 103/82
[2020-01-13 07:38] LABS: HEPATITS B SURFACE ANTIGEN Negative (Negative)
--- NOTE | 2020-01-13 08:06 | RADIOLOGY REPORT (SQ) ---
EXAM DESCRIPTION: U/S ABD PARACENTESIS IMAGES COMPLETED DATE/TIME: 01/12/2020 5:41 pm REASON FOR STUDY: acute liver failure with ascites COMPARISON: None. RADIATION DOSE: None LIMITATIONS: None. PROCEDURE: Procedure, risks, benefit, and alternative explained to patient who then gave written con sent. The right lower abdominal wall marked using ultrasound guidance. A time-out was called for co rrect marking verification. Abdomen prepped and draped using sterile technique. Local anesthesia ach ieved using 9 ml of 1% lidocaine injection. A 6fr Txga-L-Ijrfxlhm set was introduced into the perito deisy cavity. Fluid was drained. The catheter was removed and entry site was covered with sterile ba ndage. No immediate complications noted. Images acquired during the procedure were stored on PACS. FINDINGS: ENTRY SITE: right lower quadrant. FLUID VOLUME: 2 L FLUID ANALYSIS: Serous sanguinous fluid OTHER: Fluid sent to the lab for testing. IMPRESSION: SUCCESSFUL ULTRASOUND GUIDED PARACENTESIS. COMMENT: Patient medication list reviewed:Yes- Quality ID# [id number]:Eligible professional attests to docu menting in the medical record they obtained, updated, or reviewed the patient's current medications. TECHNICAL DOCUMENTATION: JOB ID: [id number] 2010 [employer]- All Rights Reserved Reading location - IP/workstation name: [email or web address] [id number]
[2020-01-13 08:37] LABS: HEPATITIS B CORE AB TOT Negative (Negative); HEPATITIS B SURFACE AB QUAL Non Reactive (.); HEPATITIS C VIRUS ANTIBODY <0.1 s/co ratio (0.0-0.9)
--- NOTE | 2020-01-13 10:01 | EKG REPORT ---
SEVERITY:- OTHERWISE NORMAL ECG - SINUS TACHYCARDIA : Confirmed by: Isaias Marquis 13-Jan-2020 10:00:47
== END 2020-01-13 01:25 | disposition short-term general hospital (02) | DRG 438 ==
LOC: ER 18:39 → EH 22:52 → 4W 01-05 00:35 → 3N 01-06 14:22 → 5 01-07 18:32 → ICU 01-12 20:20
PROVIDERS: ADMIT Emergency Medicine; ATTEND Internal Medicine Critical Care Medicine
PROC: 02HV33Z Insertion of Infusion Device into Superior Vena Cava, Percutaneous Approach (ICD-10-PCS; principal; 2020-01-04)
PROC: B24BZZ4 Ultrasonography of Heart with Aorta, Transesophageal (ICD-10-PCS; 2020-01-11)
PROC: 0W9G3ZX Drainage of Peritoneal Cavity, Percutaneous Approach, Diagnostic (ICD-10-PCS; 2020-01-12)
DX: K85.80 Other acute pancreatitis without necrosis or infection (principal); K72.00 Acute and subacute hepatic failure without coma; R18.8 Other ascites; E87.2 Acidosis; J98.11 Atelectasis; E11.65 Type 2 diabetes mellitus with hyperglycemia; I95.9 Hypotension, unspecified; E78.00 Pure hypercholesterolemia, unspecified; E78.1 Pure hyperglyceridemia; E83.51 Hypocalcemia; E11.9 Type 2 diabetes mellitus without complications; E66.9 Obesity, unspecified; R74.0 Nonspecific elevation of levels of transaminase and lactic acid dehydrogenase [LDH]; K76.9 Liver disease, unspecified; E78.5 Hyperlipidemia, unspecified; I10 Essential (primary) hypertension; F32.9 Major depressive disorder, single episode, unspecified; F41.9 Anxiety disorder, unspecified; R00.0 Tachycardia, unspecified; E88.81 Metabolic syndrome and other insulin resistance; R10.84 Generalized abdominal pain; D64.9 Anemia, unspecified; I49.3 Ventricular premature depolarization; E86.0 Dehydration; E86.1 Hypovolemia; I87.2 Venous insufficiency (chronic) (peripheral); Z68.38 Body mass index [BMI] 38.0-38.9, adult; Z79.899 Other long term (current) drug therapy; Z88.6 Allergy status to analgesic agent; Z87.11 Personal history of peptic ulcer disease
CPT/HCPCS: 36415; 36573; 36600; 49083; 71045; 74018; 74176; 76700; 76705; 80048; 80053; 80061; 80074; 81001; 82040; 82140; 82150; 82330; 82550; 82570; 82803; 82962; 83036; 83519; 83605; 83615; 83690; 83735; 83986; 84100; 84156; 84157; 84443; 84478; 84481; 84484; 84703; 85025; 85027; 85610; 85730; 86704; 86706; 87070; 87075; 87205; 87635; 93005; 93010; 93306; 93976; 94640; 94799; 96361; 96374; 96375; 99291; 99292; J0610; C1769; C9113; C9803; J0360; J1170; J1642; J1644; J1815; J1885; J2060; J2270; J2405; J3360; J3475; J3480; J3490; J7030; J7040; J7050; J7060; J7120; J7121; J7620; P9047